=== PATIENT | male | born 1945 | race Caucasian/White ===

== ENCOUNTER → 2017-01-14 | Outpatient (CLI) | payer MEDICARE ==
[~2017-01-14] MED LIST: RAMI10TA
== END ==
LOC: FS 14:02
PROVIDERS: ATTEND Internal Medicine Hematology & Oncology
DX: C85.81 Other specified types of non-Hodgkin lymphoma, lymph nodes of head, face, and neck (principal); I10 Essential (primary) hypertension; E66.9 Obesity, unspecified; Z68.37 Body mass index [BMI] 37.0-37.9, adult; Z79.899 Other long term (current) drug therapy
CPT/HCPCS: 99213

== ENCOUNTER 2017-09-22 21:26 | Outpatient (CLI) | payer MEDICARE | END 2017-09-23 06:50 | disposition home or self-care (01) | LOC: SLEEP 21:26 | PROVIDERS: ATTEND Nurse Practitioner Family | DX: G47.33 Obstructive sleep apnea (adult) (pediatric) (principal) | CPT/HCPCS: 95811 ==

== ENCOUNTER 2018-02-06 20:40 | Outpatient (CLI) | payer MEDICARE | END 2018-02-07 06:00 | disposition home or self-care (01) | LOC: SLEEP 20:40 | PROVIDERS: ATTEND Nurse Practitioner Family | DX: G47.33 Obstructive sleep apnea (adult) (pediatric) (principal); R09.02 Hypoxemia | CPT/HCPCS: 95811 ==

== ENCOUNTER 2018-04-28 19:27 | Outpatient (CLI) | payer MEDICARE | END 2018-04-29 05:51 | disposition home or self-care (01) | LOC: SLEEP 19:27 | PROVIDERS: ATTEND Nurse Practitioner | DX: G47.33 Obstructive sleep apnea (adult) (pediatric) (principal); R09.02 Hypoxemia; R06.83 Snoring | CPT/HCPCS: 95811 ==

== ENCOUNTER → 2019-02-03 | Outpatient (CLI) | payer MEDICARE ==
--- NOTE | 2019-02-03 14:45 | Diagnostic Imaging Report ---
INDICATION: Shortness of breath COMPARISON: 03/02/2009 A calcified granuloma left upper lobe chronic. The heart size upper limits but no vascular congestion, edema pneumonia, effusion or pneumothorax. No acute finding and no change. IMPRESSION: Stable chest. Dictated by: Dictated on workstation # [id number]
--- NOTE | 2019-02-03 14:59 | Diagnostic Imaging Report ---
INDICATION: Low back pain. COMPARISON: None available. TECHNIQUE: Five views of the lumbar spine were obtained. FINDINGS: There is approximately 1 cm anterolisthesis of L4 on L5. Chronic bilateral pars defects are likely present at L4; however, there are also severe degenerative changes of the lumbar facets at L4-L5. Chronic degenerative wedging of the anterior aspect of T12 and L1. Remainder of the lumbar vertebral bodies is normal in height. Multilevel degenerative disc disease is greatest at L4-L5. SI joints are normal in appearance. IMPRESSION: 1. Grade 1-2 anterolisthesis of L4 on L5 secondary to chronic bilateral pars defects. 2. Multilevel hnuivffh-ar-uzilvc degenerative changes of the lumbar spine. Dictated by: Dictated on workstation # [id number]
== END ==
LOC: RAD FS 13:32
PROVIDERS: ATTEND Family Medicine
DX: M43.16 Spondylolisthesis, lumbar region (principal); M47.816 Spondylosis without myelopathy or radiculopathy, lumbar region; R06.02 Shortness of breath
CPT/HCPCS: 71046; 72110

== ENCOUNTER 2020-07-30 09:32 | Inpatient (IN) | payer MEDICARE ==
[~2020-07-30] VITALS: Ht 180 cm; Wt 122.2 kg
[2020-07-30] MEDS ORDERED: ONDANSETRON 4 MG (ZOFRAN) ORAL DISSOLVE TAB PO PRN (11:15)
[2020-07-30] MEDS ORDERED: guaiFENesin/CODEINE (ROBITUSSIN AC) 10ML UDC PO PRN (11:15)
[2020-07-30] MEDS ORDERED: ALPRAZolam 0.25 MG (XANAX) TAB PO PRN (11:15)
[2020-07-30] MEDS ORDERED: BISACODYL 10 MG SUPP (DULCOLAX) PR PRN (11:15)
[2020-07-30] MEDS ORDERED: MELATONIN 3 MG TABLET PO PRN (11:15)
[2020-07-30] MEDS ORDERED: LACTULOSE SYRUP 10GM/15ML (ENULOSE) 30ML UDC PO PRN (11:15)
[2020-07-30] MEDS ORDERED: CALCIUM CARBONATE 500 MG (TUMS) TAB.CHEW PO PRN (11:15)
[2020-07-30] MEDS ORDERED: DOCUSATE SODIUM 100 MG (COLACE) CAP PO PRN (11:15)
[2020-07-30] MEDS ORDERED: LOPERAMIDE 2 MG (IMODIUM) TABLET PO PRN (11:15)
[2020-07-30] MEDS ORDERED: FLEET ENEMA ADULT 1 EA BTL PR PRN (11:15)
[2020-07-30] MEDS ORDERED: diphenhydrAMINE 25 MG TAB (BENADRYL) PO PRN (11:15)
[2020-07-30 12:00] VITALS: BP 149/82
--- NOTE | 2020-07-30 12:00 | NUR ---
ANALIA AGUIAR admitted to room 225-1, with an admitting diagnosis of LUMBAR STENOSIS L4-L5, S/P TRANS LUMBAR INTERBODY FUSION, on 07/30/20 from [facility] via PRIVATE VEHICLE, accompanied by . ANALIA AGUIAR introduced to surroundings, call light, bed controls, phone, TV, temperature control, lights, meal times, smoking policy, visitor policy, side rail policy, bathrooms and showers. Patient Rights given to patient in the handbook.ANALIA AGUIAR verbalizes understanding that [facility] is not responsible for the loss or damage to any personal effects or valuables that are kept in the patients posession during their hospitalization. The following Patient Care Plans were discussed with the PATIENT: Discharge Planning, IMPAIRED MOBILITY AND FALLS. ANALIA AGUIAR verbalizes understanding of Interdisciplinary Patient Education. Patient received Patient Rights Booklet, which includes Privacy Act Statement and Data Collection Information Summary.
[2020-07-30 12:38] VITALS: BP 149/82
[2020-07-30] MEDS: metFORMIN 500 MG (GLUCOPHAGE) TAB PO SCH (17:05)
[2020-07-30 18:00] VITALS: BP 160/80
--- NOTE | 2020-07-30 18:00 | NUR ---
IS MILDLY CONFUSED AND HAS GOTTEN UP TWICE WITHOUT CALLING. BED AND CHAIR ALARMS BOTH BEING UTILIZED.
--- NOTE | 2020-07-30 18:13 | PM&R Post Admission Assessment ---
PM&R HP Date of Visit: Jul 30, 2020 Time of Visit: 14:00 History of Present Illness CC: Back pain and slow recovery from lumbar stenosis with neurogenic claudication surgery Dr White HPI: This is a 74yoWM clinic patient of Dr Jasso who presents to IRF in need of aggressive rehab in order to return home to live independently with his of 56 years. He underwent uncomplicated lumbar stenosis surgery by DR White at [facility]. Pain is controlled with pain meds. BM x 2 this am since before surgery. Patient denies N/V or fever. PLOF was independent without the use of AD. Past Awhnupj-Afaaoq-Jpjzip Hx Past Med/Social Hx: Reviewed Nursing Past Med/Soc Hx, Reviewed and Corrections made Patient Social History Marrital Status: Employed/Student: retired Alcohol Use: Denies Use Recreational Drug Use: No Smoking Status: Never a Smoker Physical Abuse Screen: No Sexual Abuse: No Recent Foreign Travel: No Contact w/other who traveled: No Recent Hopitalizations: Yes (07/30 Lumbar stenosis, TLIF) Recent Infectious Disease Expo: No Immunizations Up To Date Date of Pneumonia Vaccine: Jul 30, 2017 Past Medical History Surgeries: Orthopedic Currently Using CPAP: No (stopped using 2 years ago; has machine at home) Currently Using BIPAP: No Cardiac: Chronic Edema/Swelling, High Cholesterol, Hypertension Reproductive: No Musculoskeletal: Arthritis Endocrine: Diabetes, Non-Insulin dep Are Your Blood Sugars Over 250: No Hearing Impairment: Hard of Hearing Cancer: Leukemia, Lymphoma Did You Recieve Any Treatments: Yes What Type of Treatment Did You: Chemotherapy, Radiation, Surgical Intervention Psychosocial: Depression History of Blood Disorders: No Family History Cardiovascular disease 19 MOTHER Diabetes mellitus 19 MOTHER G8 BROTHER Myocardial infarction 19 FATHER PM&R Allergy/Meds/Data Review Allergies Coded Allergies: diphenhydramine (Verified Allergy, Mild, 07/30/20) patient states "gives him a high" Home Medications Miscellaneous Medications Ramipril (Altace), (Reported) Current Medications Current Medications Reviewed Laboratory Data Laboratory Tests 07/30/20 12:24: Glucometer 114H 07/30/20 17:04: Glucometer 113H Review of Systems Constitutional: see HPI, malaise, weakness Musculoskeletal: back pain Physical Exam Physical Exam Vital Signs Vital Signs - First Documented 07/30/20 12:00 Temp 36.2 Pulse 72 Resp 18 B/P (MAP) 149/82 (104) Pulse Ox 96 O2 Delivery Room Air Capillary Refill : Height, Weight, BMI Height: '" Weight: lbs. oz. kg; 39.75 BMI Method: General Appearance: No Apparent Distress, WD/WN, Chronically ill Eyes: Bilateral Eye Normal Inspection, Bilateral Eye PERRL HEENT: PERRL/EOMI, Normal ENT Inspection, Pharynx Normal Neck: Full Range of Motion, Normal Inspection, Non Tender, Supple, Carotid Bruit Respiratory: Chest Non Tender, Lungs Clear, Normal Breath Sounds, No Accessory Muscle Use, No Respiratory Distress Cardiovascular: Regular Rate, Rhythm, No Edema, No Gallop, No JVD, No Murmur, Normal Peripheral Pulses Gastrointestinal: Normal Bowel Sounds, No Organomegaly, No Pulsatile Mass, Non Tender, Soft Back: Decreased Range of Motion, Muscle Spasm, Vertebral Tenderness Extremity: Normal Capillary Refill, Normal Inspection, Normal Range of Motion, Non Tender, No Calf Tenderness, No Pedal Edema Neurologic/Psychiatric: Alert, Oriented x3, Normal Mood/Affect, Motor Weakness (legs 4/5) Skin: Normal Color, Warm/Dry Lymphatic: No Adenopathy PM&R Medical Assessment & Plan REHAB/MEDICAL ASSESSMENT AND PLAN: REHAB IMPAIRMENT GROUP: Lumbar stenosis with neurogenic claudication ETIOLOGIC DIAGNOSIS: Lumbar stenosis with neurogenic claudication The comorbidities that impact the patients function and/or functional outcome by: increased BMI, fall risk, significant pain in back limiting activity REHAB PLAN: The patient is being admitted to our comprehensive inpatient rehabilitation facility and can tolerate the intensity of service consisting of at least: 180 minutes of therapy a day, 5 out of 7 days a week Rehab treatment will consist of: PT OT will help patient regain function with specific energy conservation techniques with the use of AD The patient/family has a good understanding of our discharge process and will benefit from an interdisciplinary inpatient rehabilitation program. The patient has potential to make improvement and is in need of at least two of the following multidisciplinary therapies including but not limited to physical, occupational, speech, and prosthetics and orthotics. Additionally the patient will need services from respiratory, nutritional services, wound care, psychology, etc. (Customize this to each patient). Given the patients complex condition and risk of further medical complications, rehabilitation services cannot be safely or effectively provided at a lower level of care such as a shelter facility. BARRIERS TO DISCHARGE: Back pain ESTIMATED LOS: 7 days DISPOSITION: Home RELEVANT CHANGES SINCE PREADMISSION SCREENING: I have compared the patients medical and functional status at the time of the preadmission screening and there are: no changes PROGNOSIS: Good REHABILITATION GOALS: 1. PT OT will help patient regain function with specific energy conservation techniques with the use of AD All the above goals were reviewed with the patient and he/she is in agreement. By signing this document, I acknowledge that I have personally performed a full physical examination on this patient within 24 hours of admission to this inpatient rehabilitation facility and have determined the patient to be able to tolerate the above course of treatment at an intensive level for a reasonable period of time. I will be completing a detailed individualized Plan of Care for this patient by day #4 of the patients stay based upon the Preadmission Screen, the Post-Admission Evaluation, and the therapy evaluations. Admission Dx/Comorbidities: (1) Lumbar stenosis with neurogenic claudication ICD Codes: M48.062 - Spinal stenosis, lumbar region with neurogenic claudication (2) Hypertension ICD Codes: I10 - Essential (primary) hypertension (3) Hyperlipemia ICD Codes: E78.5 - Hyperlipidemia, unspecified (4) Edema ICD Codes: R60.9 - Edema, unspecified (5) Diabetes ICD Codes: E11.9 - Type 2 diabetes mellitus without complications Assessment/Plan Assessment and Plan Assess & Plan/Chief Complaint Assessment: Lumbar spine stenosis with nuerogenic claudication s/p surgery HTN HLP DM Edema plan: Pain control Monitor closely IRF protocol HAIM BERNAL DO Jul 30, 2020 18:13
[2020-07-30] MEDS: polyethylene glycoL POWDER 17 GM (MIRALAX) PACK PO SCH (19:21)
[2020-07-30] MEDS: SENNA W/DOCUSATE (SENOKOT S) TABLET PO SCH (19:21)
[2020-07-30] MEDS: BACLOFEN 10 MG (LIORESAL) TAB PO PRN (19:47)
[2020-07-30] MEDS ORDERED: BACITRACIN OINTMENT 28 GM TUBE TOP SCH (21:00)
[2020-07-30] MEDS: ZOLPIDEM 5 MG (AMBIEN) TAB PO PRN (21:10)
[2020-07-30] MEDS: oxyCODONE/APAP 5/325MG (PERCOCET 5) TABLET PO PRN (21:11)
[2020-07-31] MEDS: oxyCODONE/APAP 5/325MG (PERCOCET 5) TABLET PO PRN ×3 (04:52→20:16)
[2020-07-31 05:19] VITALS: BP 160/73
[2020-07-31 06:03] LABS: BASOPHILS # (AUTO) 0.1 10^3/uL (0.0-0.1); BASOPHILS % (AUTO) 1 % (0-10); EOSINOPHILS # (AUTO) 0.2 10^3/uL (0.0-0.3); EOSINOPHILS % (AUTO) 3 % (0-10); HEMATOCRIT 38 % (40-54); HEMOGLOBIN 12.4 g/dL (13.3-17.7); LYMPHOCYTES # (AUTO) 1.1 10^3/uL (1.0-4.0); LYMPHOCYTES % (AUTO) 13 % (12-44); MEAN CORPUSCULAR HEMOGLOBIN 29 pg (25-34); MEAN CORPUSCULAR HGB CONC 33 g/dL (32-36); MEAN CORPUSCULAR VOLUME 89 fL (80-99); MEAN PLATELET VOLUME 10.3 fL (9.0-12.2); MONOCYTES # (AUTO) 0.6 10^3/uL (0.0-1.0); MONOCYTES % (AUTO) 7 % (0-12); NEUTROPHILS % (AUTO) 77 % (42-75); PLATELET COUNT 238 10^3/uL (130-400); WHITE BLOOD COUNT 9.1 10^3/uL (4.3-11.0)
[2020-07-31 06:18] LABS: ALBUMIN 3.1 GM/DL (3.2-4.5); CHLORIDE 101 MMOL/L (98-107); POTASSIUM 3.7 MMOL/L (3.6-5.0); SODIUM 135 MMOL/L (135-145)
[2020-07-31 06:20] LABS: CALCIUM 8.5 MG/DL (8.5-10.1)
[2020-07-31 06:21] LABS: GLUCOSE 130 MG/DL (70-105); TOTAL PROTEIN 6.7 GM/DL (6.4-8.2)
[2020-07-31 06:22] LABS: CARBON DIOXIDE 24 MMOL/L (21-32)
[2020-07-31 06:23] LABS: BILIRUBIN,TOTAL 0.9 MG/DL (0.1-1.0)
[2020-07-31 06:24] LABS: ALKALINE PHOSPHATASE 147 U/L (40-136)
[2020-07-31 06:25] LABS: BUN/CREATININE RATIO 17; CREATININE SERUM 0.76 MG/DL (0.60-1.30); GFR ESTIMATED > 60
[2020-07-31 06:27] LABS: ALANINE AMINOTRANSFERASE 56 U/L (0-55)
[2020-07-31] MEDS: metFORMIN 500 MG (GLUCOPHAGE) TAB PO SCH ×2 (06:33→17:02)
--- NOTE | 2020-07-31 08:00 | NUR ---
CRANKY SPIRITS THIS MORNING. UNHAPPY HAVING TO BE HERE. LOWER EXTREMITY EDEMA NOTED. LEGS TOO LARGE FOR WALDO HOSE AND REFUSES DIONNA WRAPS. CONTINUE TO NEED TO UTILIZE BED AND CHAIR ALARMS BECAUSE GETTING UP WITHOUT CALLING.
--- NOTE | 2020-07-31 09:01 | Physical Therapy Evaluation ---
PT Evaluation-General Medical Diagnosis Admission Date Jul 30, 2020 at 12:00 Medical Diagnosis: lumbar stenosis Onset Date: Jul 30, 2020 Therapy Diagnosis Therapy Diagnosis: impaired mobility, endurance Precautions Precautions/Isolations: Fall Prevention, Standard Precautions, Pressure Ulcer Referral Physician: Myra Osman DO Reason for Referral: Evaluation/Treatment Medical History Additional Medical History Past Medical History Surgeries: Orthopedic Currently Using CPAP: No (stopped using 2 years ago; has machine at home) Currently Using BIPAP: No Cardiac: Chronic Edema/Swelling, High Cholesterol, Hypertension Reproductive: No Musculoskeletal: Arthritis Endocrine: Diabetes, Non-Insulin dep Are Your Blood Sugars Over 250: No Hearing Impairment: Hard of Hearing Cancer: Leukemia, Lymphoma Did You Recieve Any Treatments: Yes What Type of Treatment Did You: Chemotherapy, Radiation, Surgical Intervention Psychosocial: Depression Reviewed History: Yes Social History Home: Single Level Current Living Status: Spouse Entry Into Home: Level Entry Prior Prior Level of Function SCALE: Activities may be completed with or without assistive devices. 1-Svfkvftxzo-wbobwyn completes the activity by him/herself with no assistance from a helper. 5-Set-up or Clean-up Assistance-helper sets up or cleans up; patient completes activity. [place] assists only prior to or following the activity. 4-Supervision or Touching Assistance-helper provides verbal cues and/or touching/steadying and/or contact guard assistance as patient completes activity. Assistance may be provided throughout the activity or intermittently. 3-Partial/Moderate Assistance-helper does LESS THAN HALF the effort. [place] lifts, holds or supports trunk or limbs, but provides less than half the effort. 2-Substantial/Maximal Assistance-helper does MORE THAN HALF the effort. [place] lifts or holds trunk or limbs and provides more than half the effort. 0-Hauxrvbrz-agifsn does ALL the effort. Patient does none of the effort to complete the activity. Or, the assistance of 2 or more helpers is required for the patient to complete the activity. If activity was not attempted, code reason: 7-Patient Refused. 9-Not Applicable-not attempted and the patient did not perform the activity before the current illness, exacerbation or injury. 10-Not Attempted due to Environmental Limitations-(lack of equipment, weather restraints, etc.). 88-Not Attempted due to Medical Conditions or Safety Concerns. Bed Mobility: 6 Transfers (B,C,W/C): 6 Gait: 6 Stairs: 6 Indoor Mobility (Ambulation): Independent Stairs: Independent PT Evaluation-Current Subjective Patient in recliner pre tx, agrees to PT, has 2/10 pain in back. Patient is upset about his care here, listened with a sympathetic ear. Pt/Family Goals to be independent at home Objective Patient Orientation: Person, Place, Situation back brace ROM/Strength ROM Lower Extremities WNL Strength Lower Extremities 5/5 gross BLE Sensory Vision: Functional Hearing: Functional Sensation Right Lower Extremit: Intact Sensation Left Lower Extremity: Impaired Sensation Lower Extremities Patient has mild impairment in light touch sensation in left foot. Transfers Roll Left & Right (QC): 4 Sit to Lying (QC): 4 Lying to Sitting/Side of Bed(Q: 4 Sit to Stand (QC): 4 Chair/Dcb-az-Npohb Xfer(QC): 4 Toilet Transfer (QC): 4 Car Transfer (QC): 4 Patient can perform bed mobility and supine <-> sit with SBA, sit <-> stand and transfers with CGA, car transfer CGA. Occasional cues for hand placement or positioning. Gait Does the Patient Walk?: Yes Mode of Locomotion: Walk Anticipated Mode of Locomotion: Walk Walk 10 feet (QC): 4 Walk 50 ft with 2 Turns(QC): 4 Walk 150 ft (QC): 4 Walking 10ft/uneven surface-QC: 4 Distance: 300', 120' Gait Assistive Device: FWW Comments/Gait Description Patient can ambulate 300' with a rolling walker with SBA (including 50' with at least 2 turns of 90 degrees and 10' over an uneven surface). Gait is slow, has wide CHRISTOFER but is steady. Wheelchair Training Does the Pt Use a Wheelchair?: No Wheel 50 ft with 2 turns (QC): 9 Wheel 150 ft (QC): 9 Stairs #of Steps: 4 1 Step (curb) (QC): 4 4 Steps (QC): 4 12 Steps (QC): 88 Patient can go up and down 4 steps using 2 handrails with CGA, cues for foot placement and safety. Balance Sitting Static: Normal Sitting Dynamic: Normal Standing Static: Good Standing Dynamic: Good Picking up an Object (QC): 88 Treatment Parallel bars exercises x15 (heel raises, mini-squats, hip abd), seated LAQ alternating for 5 min with 2# ankle weights Assessment/Needs Patient has impaired mobility, endurance. His functional mobility is pretty good and will probably be independent in a couple of days. Patient in bed post tx with nurse call, phone, tray, all needs met. Rehab Potential: Fair PT Short Term Goals Short Term Goals Time Frame: Aug 07, 2020 Roll Left & Right: 6 Sit to lyin Sit to stand: 4 Chair/toc-xe-fvmra transfer: 4 Walk 10 feet: 4 Walk 50 feet with two turns: 4 Walk 150 feet: 4 PT Clinical Care Coordinator Goals Snf Goals PT Snf Goals Time Frame: Aug 21, 2020 Roll Left & Right (QC): 6 Sit to Lying (QC): 6 Lying-Sitting on Side/Bed(QC): 6 Sit to Stand (QC): 6 Chair/Gbp-wz-Msxvx Xfer(QC): 6 Toilet Transfer (QC): 6 Car Transfer (QC): 6 Does the Patient Walk: Yes Walk 10 feet (QC): 6 Walk 50ft with 2 Turns (QC): 6 Walk 150 ft (QC): 6 Walking 10ft on Uneven Surface: 6 1 Step (curb) (QC): 6 4 Steps (QC): 6 12 Steps (QC): 6 Picking up an Object (QC): 88 Wheel 50 feet with 2 turns (QC: 9 Wheel 150 feet: 9 PT Plan Problem List Problem List: Activity Tolerance, Functional Strength, Safety, Balance, Gait, Transfer, Bed Mobility, ROM Treatment/Plan Treatment Plan: Continue Plan of Care Treatment Plan: Bed Mobility, Education, Functional Activity [place], Functional Strength, Group Therapy, Gait, Safety, Therapeutic Exercise, Transfers Treatment Duration: Aug 21, 2020 Frequency: At least 5 of 7 days/Wk (IRF) Estimated Hrs Per Day: 1.5 hours per day Patient and/or Family Agrees t: Yes Safety Risks/Education Patient Education: Gait Training, Transfer Techniques, Steps, Correct Positioning, Reviewed Don/Doff Brace, Safety Issues Teaching Recipient: Patient Teaching Methods: Demonstration, Discussion Response to Teaching: Reinforcement Needed Discharge Recommendations Plan Patient will perform bed mobility and transfer training, balance and endurance training, functional strengthening, stair training, gait training, and education, to improve functional mobility and independence at home. Therapy Discharge Recommendati: Home & Family Time/GCodes Time In: 0800 Time Out: 0900 Total Billed Treatment Time: 60 Total Billed Treatment 1 visit EVM 30' FA 30' BALWINDER EDDY PT Jul 31, 2020 09:01
[2020-07-31] MEDS: BACLOFEN 10 MG (LIORESAL) TAB PO PRN ×2 (09:34→17:02)
[2020-07-31] MEDS: SENNA W/DOCUSATE (SENOKOT S) TABLET PO SCH ×2 (09:34→21:51)
[2020-07-31] MEDS: meTOproloL SUCCINATE 50 MG (TOPROL XL) TAB PO SCH (09:34)
[2020-07-31] MEDS: amLODIPine 5 MG (NORVASC) TAB PO SCH (09:34)
[2020-07-31] MEDS: FUROSEMIDE 20 MG (LASIX) TAB PO SCH (09:34)
[2020-07-31] MEDS: lisINopril 20 MG (PRINIVIL) TABLET PO SCH (09:35)
[2020-07-31] MEDS: polyethylene glycoL POWDER 17 GM (MIRALAX) PACK PO SCH ×2 (09:37→20:06)
--- NOTE | 2020-07-31 10:25 | PM&R Progress Note ---
Subjective HPI/CC On Admission Date Seen by Provider: Jul 31, 2020 Time Seen by Provider: 10:30 Subjective/Events-last exam 07/31/20: Pt really irritated and wants to leave Family really wants him to stay Denies any significant new issues Pain is pretty well controlled Just took a shower and feels much better about everything Disappointed that his was not able to visit him in rehab when she stayed with him at [place] Review of Systems Musculoskeletal: back pain Objective Exam Vital Signs Vital Signs Date Time Temp Pulse Resp B/P (MAP) Pulse Ox O2 Delivery O2 Flow Rate FiO2 08/01/20 06:08 37.0 78 20 147/88 (107) 96 Room Air Capillary Refill : Less Than 3 Seconds General Appearance: No Apparent Distress, WD/WN, Chronically ill HEENT: PERRL/EOMI, Normal ENT Inspection, Pharynx Normal Neck: Full Range of Motion, Normal Inspection, Non Tender, Supple, Carotid Bruit Respiratory: Chest Non Tender, Lungs Clear, Normal Breath Sounds, No Accessory Muscle Use, No Respiratory Distress Cardiovascular: Regular Rate, Rhythm, No Edema, No Gallop, No JVD, No Murmur, Normal Peripheral Pulses Gastrointestinal: Normal Bowel Sounds, No Organomegaly, No Pulsatile Mass, Non Tender, Soft Back: Decreased Range of Motion, Muscle Spasm, Vertebral Tenderness Extremity: Normal Capillary Refill, Normal Inspection, Normal Range of Motion, Non Tender, No Calf Tenderness, No Pedal Edema Neurologic/Psychiatric: Alert, Oriented x3, Normal Mood/Affect, Motor Weakness (legs 4/5) Skin: Normal Color, Warm/Dry Lymphatic: No Adenopathy Results/Procedures Lab Patient resulted labs reviewed. FIM Transfers Therapy Code Descriptions/Definitions Functional [place] Measure: 0=Not Assessed/NA 4=Minimal Assistance 1=Total Assistance 5=Supervision or Setup 2=Maximal Assistance 6=Modified [place] 3=Moderate Assistance 7=Complete IndependenceSCALE: Activities may be completed with or without assistive devices. 5-Quisoxsjcd-hamusbt completes the activity by him/herself with no assistance from a helper. 5-Set-up or Clean-up Assistance-helper sets up or cleans up; patient completes activity. [place] assists only prior to or following the activity. 4-Supervision or Touching Assistance-helper provides verbal cues and/or to uching/steadying and/or contact guard assistance as patient completes activity. Assistance may be provided throughout the activity or intermittently. 3-Partial/Moderate Assistance-helper does LESS THAN HALF the effort. [place] lifts, holds or supports trunk or limbs, but provides less than half the effort. 2-Substantial/Maximal Assistance-helper does MORE THAN HALF the effort. [place] lifts or holds trunk or limbs and provides more than half the effort. 9-Kzfahydcd-ueveyc does ALL the effort. Patient does none of the effort to complete the activity. Or, the assistance of 2 or more helpers is required for the patient to complete the activity. If activity was not attempted, code reason: 7-Patient Refused. 9-Not Applicable-not attempted and the patient did not perform the activity before the current illness, exacerbation or injury. 10-Not Attempted due to Environmental Limitations-(lack of equipment, weather restraints, etc.). 88-Not Attempted due to Medical Conditions or Safety Concerns. Roll Left to Right (QC): 4 Sit to Lying (QC): 4 Sit to Stand (QC): 4 Chair/Prp-aj-Frxqm Xfer(QC): 4 Car Transfer (QC): 4 Gait Training Does the Patient Walk?: Yes Walk 10 feet (QC): 4 Walk 50 ft with 2 Turns(QC): 4 Walk 150 ft (QC): 4 Walking 10ft/uneven surface-QC: 4 Gait Assistive Device: FWW Wheelchair Training Does the Pt Use a Wheelchair?: No Wheel 50 ft with 2 turns (QC): 9 Wheel 150 ft (QC): 9 Stair Training #of Steps: 4 1 Step (curb) (QC): 4 4 Steps (QC): 4 12 Steps (QC): 88 Balance Picking up an Object (QC): 88 Assessment/Plan Assessment and Plan Assess & Plan/Chief Complaint Assessment: Lumbar spine stenosis with nuerogenic claudication s/p surgery HTN HLP DM Edema Plan: Pain control Monitor closely IRF protocol 07/31/20: Wants to leave AMA Pain control Labs stable (1) Lumbar stenosis with neurogenic claudication (2) Hypertension (3) Hyperlipemia (4) Edema (5) Diabetes HAIM BERNAL DO Jul 31, 2020 10:25
[2020-07-31] MEDS: BACITRACIN OINTMENT 28 GM TUBE TOP SCH (11:42)
--- NOTE | 2020-07-31 13:07 | NUR ---
CM/SS ADMISSION Patient was admitted to ARU 07/[address] [facility] for Lumbar Stenosis L4-L5. He states he admitted to [facility] 07/24 for his neurosurgery by Dr. Abhishek White MD. Additional comorbidities are, in part, HTN, hyperlipidemia, edema, NIDDM. Patient has history of leukemia and lymphoma with interventions of surgery, chemotherapy, radiation. Patient resides at home with his spouse, Celeste Gerber, and wishes to return there as soon as able. He was independent of all activities without assistive devices prior to surgery. PCP: Nelson Jasso MD [facility] [phone] PHARMACY: [facility] INSURANCE: Medicare, supplement [employer] DME: Has FWW, wheelchair (his mother's), CPAP (stopped using 2 years ago). They are finalizing remodel of a bathroom, walk in shower and with grab bars and possibly a built in seat. BARRIERS TO DISCHARGE PLANNING: Nothing significant noted. Adequate insurance coverage, spouse at home to assist, son and daughter both reside in same town. Level entry to home off of deck or one step down from garage entry. CONTACTS: Celeste Gerber, Spouse [address] [place] [address] Jeremi Gerber, Son [address] [place] [address] Joyce Baker, [place] [address] Patient understands the purpose and process of the weekly patient care conference and that he will first be reviewed August 02. He has verbalized to several staff he wishes to return home as soon as the team is in agreement.
--- NOTE | 2020-07-31 14:00 | NUR ---
MUCH BETTER SPIRITS. FACETIMED WITH GRANDDAUGHTER. MADE UP AD COOKIE IN ROOM BY Durga BRITT PATIENT VOICES UNDERSTANDING TO CALL NURSE TO PUT ON BACK BRACE WHEN WANTS TO GET UP HOWEVER.
--- NOTE | 2020-07-31 14:44 | Occupational Therapy Eval ---
OT Evaluation-General/PLF Medical Diagnosis Admission Date Jul 30, 2020 at 12:00 Medical Diagnosis: lumbar stenosis/L4-L5 trans lumbar interbody fusion Onset Date: Jul 24, 2020 Therapy Diagnosis Therapy Diagnosis: Weakness Precautions Precautions/Isolations: Fall Prevention, Standard Precautions, Pressure Ulcer Weight Bear Status Back brace on when up. Referral Physician: Myra Osman DO Referral Reason: Activity Tolerance, Self Care, Evaluation/Treatment, Strengthening/ROM Medical History Pertinent Medical History: DM Additional Medical History Neurogenic Claudication, lymphoma, leukemia Current History Pt. was experiencing radiating pain in bilateral LE. Reviewed History: Yes Social History Home: Single Level Current Living Status: Spouse Entry Into Home: Level Entry ADL-Prior Level of Function SCALE: Activities may be completed with or without assistive devices. 4-Nboohaufrb-tuojepi completes the activity by him/herself with no assistance from a helper. 5-Set-up or Clean-up Assistance-helper sets up or cleans up; patient completes activity. Browning assists only prior to or following the activity. 4-Supervision or Touching Assistance-helper provides verbal cues and/or touching/steadying and/or contact guard assistance as patient completes activity. Assistance may be provided throughout the activity or intermittently. 3-Partial/Moderate Assistance-helper does LESS THAN HALF the effort. Browning lifts, holds or supports trunk or limbs, but provides less than half the effort. 2-Substantial/Maximal Assistance-helper does MORE THAN HALF the effort. Browning lifts or holds trunk or limbs and provides more than half the effort. 9-Yvcqjkhjg-yckzif does ALL the effort. Patient does none of the effort to complete the activity. Or, the assistance of 2 or more helpers is required for the patient to complete the activity. If activity was not attempted, code reason: 7-Patient Refused. 9-Not Applicable-not attempted and the patient did not perform the activity before the current illness, exacerbation or injury. 10-Not Attempted due to Environmental Limitations-(lack of equipment, weather restraints, etc.). 88-Not Attempted due to Medical Conditions or Safety Concerns. ADL PLOF Comments Pt. verbalizes that he used a walker sometimes, if needed, but mainly was independent with daily tasks, and did not use anything for mobility. Self Care: Independent Functional Cognition: Independent DME/Equipment: Bath Chair, Shower Drive Self: Yes OT Current Status Subjective No pain reported. Appearance Pt. in bed. Agrees to work with OT. Mental Status/Objective Patient Orientation: Person, Place, Time, Situation Current Hand Dominance: Right Upper Extremity ROM WFL ADL-Treatment Eating (QC): 6 Oral Hygiene (QC): 88 (Pt. does not have dentures in.) Shower/Bathe Self (QC): 4 (SBA in shower.) Upper Body Dressing (QC): 4 (SBA to doff shirt. Pt. dons fresh gown.) Lower Body Dressing (QC): 4 (SBA seated on shower chair to thread bilateral LE into shorts. SBA in stance to don over hips.) On/Off Footwear (QC): 3 (Mod assist to don socks. Pt. issued sock aide and able to don with min assist.) Toileting Hygiene (QC): 4 Education OT Patient Education: Correct positioning, Modified ADL techniques, Progress toward Goal/Update tx plan, Purpose of tx/functional activities, Reviewed precautions, Rehab process, Transfer techniques Teaching Recipient: Patient Teaching Methods: Demonstration, Discussion Response to Teaching: Verbalize Understanding, Return Demonstration OT Halfway Goals Halfway Goals Time Frame: Aug 14, 2020 Eating (QC): 6 Oral Hygiene (QC): 6 Toileting Hygiene (QC): 6 Shower/Bathe Self (QC): 6 Upper Body Dressing (QC): 6 Lower Body Dressing (QC): 6 On/Off Footwear (QC): 6 Additional Goals: 1-Demonstrate ADL Tasks, 2-Verbalize Understanding, 3- ImproveStrength/Delma 1=Demonstrate adherence to instructed precautions during ADL tasks. 2=Patient will verbalize/demonstrate understanding of assistive devices/modifications for ADL. 3=Patient will improve strength/tolerance for activity to enable patient to perform ADL's. OT Education/Plan Problem List/Assessment Assessment: Decreased Activ Tolerance, Impaired I ADL's, Impaired Self-Care Skills Discharge Recommendations Plan/Recommendations: Continue POC Therapy Discharge Recommendati: Home & Family Equpiment Recommendations-D/C: Hip Kit Treatment Plan/Plan of Care Treatment,Training & Education: Yes Patient would benefit from OT for education, treatment and training to promote independence in ADL's, mobility, safety and/or upper extremity function for ADL's. Plan of Care: ADL Retraining, Functional Mobility, UE Funct Exercise/Act Treatment Duration: Aug 14, 2020 Frequency: At least 5 of 7 days/Wk (IRF) Estimated Hrs Per Day: 1.5 hours per day Agreement: Yes Rehab Potential: Good Time/GCodes Start Time: 10:00 Stop Time: 11:00 Total Time Billed (hr/min): 60 Billed Treatment Time 1, EVL x 15minutes, ADL [id number] ANTONETTE HOBBS OT Jul 31, 2020 14:44
--- NOTE | 2020-07-31 15:00 | Physical Therapy Daily Note ---
PT Daily Note-Current Subjective Patient in bed pre tx, agrees to PT, has 7/10 low back pain. Appearance Patient in bed post tx, has nurse call, phone, tray, all needs met. Nurse notified to make patient independent in his room as long as he has his brace on, told patient if he is in bed and needs to get up to call nursing to put his brace on and then he can get up. Mental Status Patient Orientation: Person, Place, Situation back brace Transfers SCALE: Activities may be completed with or without assistive devices. 0-Pjrqfvseqv-krxctrw completes the activity by him/herself with no assistance from a helper. 5-Set-up or Clean-up Assistance-helper sets up or cleans up; patient completes activity. Prospect assists only prior to or following the activity. 4-Supervision or Touching Assistance-helper provides verbal cues and/or touching/steadying and/or contact guard assistance as patient completes activity. Assistance may be provided throughout the activity or intermittently. 3-Partial/Moderate Assistance-helper does LESS THAN HALF the effort. Prospect lifts, holds or supports trunk or limbs, but provides less than half the effort. 2-Substantial/Maximal Assistance-helper does MORE THAN HALF the effort. Prospect lifts or holds trunk or limbs and provides more than half the effort. 2-Gdrxsobjj-uuhgvf does ALL the effort. Patient does none of the effort to complete the activity. Or, the assistance of 2 or more helpers is required for the patient to complete the activity. If activity was not attempted, code reason: 7-Patient Refused. 9-Not Applicable-not attempted and the patient did not perform the activity before the current illness, exacerbation or injury. 10-Not Attempted due to Environmental Limitations-(lack of equipment, weather restraints, etc.). 88-Not Attempted due to Medical Conditions or Safety Concerns. Roll Left & Right (QC): 6 Sit to Lying (QC): 6 Lying to Sitting/Side of Bed(Q: 6 Sit to Stand (QC): 6 Chair/Bdw-bi-Qiqlr Xfer(QC): 6 Toilet Transfer (QC): 6 practiced going into bathroom and getting onto toilet and back up, no issues or balance problems Gait Training Distance: 120', 400' Walk 10 feet (QC): 6 Walk 50 ft with 2 Turns(QC): 6 Walk 150 ft (QC): 6 Gait Assistive Device: FWW slumped posture but no balance issues Exercises NuStep Minutes: 10 NuStep Workload: 4 Treatments transfers, ambulation, LE strengthening Assessment Current Status: Fair Progress patient now independent in his room, no alarm on bed, can go to restroom by himself but told to call nursing if he needs to PT Short Term Goals Short Term Goals Time Frame: Aug 07, 2020 Roll Left & Right: 6 Sit to lyin Sit to stand: 4 Chair/nnr-ae-mrawu transfer: 4 Walk 10 feet: 4 Walk 50 feet with two turns: 4 Walk 150 feet: 4 PT Mcfp Goals Land Planner Goals PT Mcfp Goals Time Frame: Aug 21, 2020 Roll Left & Right (QC): 6 Sit to Lying (QC): 6 Lying-Sitting on Side/Bed(QC): 6 Sit to Stand (QC): 6 Chair/Lxg-vk-Nxujq Xfer(QC): 6 Toilet Transfer (QC): 6 Car Transfer (QC): 6 Does the Patient Walk: Yes Walk 10 feet (QC): 6 Walk 50ft with 2 Turns (QC): 6 Walk 150 ft (QC): 6 Walking 10ft on Uneven Surface: 6 1 Step (curb) (QC): 6 4 Steps (QC): 6 12 Steps (QC): 6 Picking up an Object (QC): 88 Wheel 50 feet with 2 turns (QC: 9 Wheel 150 feet: 9 PT Plan Problem List Problem List: Activity Tolerance, Functional Strength, Safety, Balance, Gait, Transfer Treatment/Plan Treatment Plan: Continue Plan of Care Treatment Plan: Bed Mobility, Education, Functional Activity Delma, Functional Strength, Group Therapy, Gait, Safety, Therapeutic Exercise, Transfers Treatment Duration: Aug 21, 2020 Frequency: At least 5 of 7 days/Wk (IRF) Estimated Hrs Per Day: 1.5 hours per day Patient and/or Family Agrees t: Yes Safety Risks/Education Patient Education: Gait Training, Transfer Techniques, Correct Positioning, Reviewed Don/Doff Brace, Safety Issues Teaching Recipient: Patient Teaching Methods: Demonstration, Discussion Response to Teaching: Reinforcement Needed Time/GCodes Time In: 1430 Time Out: 1500 Total Billed Treatment Time: 30 Total Billed Treatment 1 visit EX 10' FA 20' BALWINDER EDDY PT Jul 31, 2020 15:00
--- NOTE | 2020-07-31 15:18 | Occupational Ther Daily Note ---
OT Current Status-Daily Note Subjective No pain reported. Mental Status/Objective Patient Orientation: Person, Place, Time, Situation ADL-Treatment Therapy Code Descriptions/Definitions Functional Luna Measure: 0=Not Assessed/NA 4=Minimal Assistance 1=Total Assistance 5=Supervision or Setup 2=Maximal Assistance 6=Modified Luna 3=Moderate Assistance 7=Complete IndependenceSCALE: Activities may be completed with or without assistive devices. 5-Zclwnjhwbk-doxarcp completes the activity by him/herself with no assistance from a helper. 5-Set-up or Clean-up Assistance-helper sets up or cleans up; patient completes activity. Bailey assists only prior to or following the activity. 4-Supervision or Touching Assistance-helper provides verbal cues and/or touching/steadying and/or contact guard assistance as patient completes activity. Assistance may be provided throughout the activity or intermittently. 3-Partial/Moderate Assistance-helper does LESS THAN HALF the effort. Bailey lifts, holds or supports trunk or limbs, but provides less than half the effort. 2-Substantial/Maximal Assistance-helper does MORE THAN HALF the effort. Bailey lifts or holds trunk or limbs and provides more than half the effort. 0-Bgononwse-bqkbib does ALL the effort. Patient does none of the effort to complete the activity. Or, the assistance of 2 or more helpers is required for the patient to complete the activity. If activity was not attempted, code reason: 7-Patient Refused. 9-Not Applicable-not attempted and the patient did not perform the activity before the current illness, exacerbation or injury. 10-Not Attempted due to Environmental Limitations-(lack of equipment, weather restraints, etc.). 88-Not Attempted due to Medical Conditions or Safety Concerns. Other Treatment Pt. agrees to work with OT. Pt. transfers supine-sit with SBA, and practices donning back brace. Requires min assist. Pt. ambulates with walker, approximately 300 feet. Rests, and then ambulates to shower room. Pt. shown walk in bathtub, as he mentioned getting one at home. Pt. ambulates again, approximately 200 feet, and then transfers to bed with SBA. All needs met. Education OT Patient Education: Correct positioning, Modified ADL techniques, Progress toward Goal/Update tx plan, Purpose of tx/functional activities, Reviewed precautions, Rehab process, Transfer techniques Teaching Recipient: Patient Teaching Methods: Demonstration, Discussion Response to Teaching: Verbalize Understanding, Return Demonstration OT Merry Go Round Attendant Goals Mcfp Goals Time Frame: Aug 14, 2020 Eating (QC): 6 Oral Hygiene (QC): 6 Toileting Hygiene (QC): 6 Shower/Bathe Self (QC): 6 Upper Body Dressing (QC): 6 Lower Body Dressing (QC): 6 On/Off Footwear (QC): 6 Additional Goals: 1-Demonstrate ADL Tasks, 2-Verbalize Understanding, 3- ImproveStrength/Delma 1=Demonstrate adherence to instructed precautions during ADL tasks. 2=Patient will verbalize/demonstrate understanding of assistive devices/modifications for ADL. 3=Patient will improve strength/tolerance for activity to enable patient to perform ADL's. OT Education/Plan Problem List/Assessment Assessment: Decreased Activ Tolerance Discharge Recommendations Plan/Recommendations: Continue POC Therapy Discharge Recommendati: Home & Family Equpiment Recommendations-D/C: Hip Kit Treatment Plan/Plan of Care Treatment,Training & Education: Yes Patient would benefit from OT for education, treatment and training to promote independence in ADL's, mobility, safety and/or upper extremity function for ADL's. Plan of Care: ADL Retraining, Functional Mobility, UE Funct Exercise/Act Treatment Duration: Aug 14, 2020 Frequency: At least 5 of 7 days/Wk (IRF) Estimated Hrs Per Day: 1.5 hours per day Agreement: Yes Rehab Potential: Good Time/GCodes Start Time: 13:00 Stop Time: 13:30 Total Time Billed (hr/min): 30 Billed Treatment Time 1, FA x 2 ANTONETTE HOBBS OT Jul 31, 2020 15:18
--- NOTE | 2020-07-31 15:32 | ST Cognitive Linguistic Eval ---
Speech Evaluation-General Medical Diagnosis lumbar stenosis/L4-L5 trans lumbar interbody fusion Onset Date: Jul 24, 2020 Therapy Diagnosis Therapy Diagnosis: Cognitive-communication Referral Referring Physician: Dr. Osman Medical History Pertinent Medical History: DM Reviewed History: Yes Social History Current Living Status: Spouse Speech PLF-Current Status Prior Level of Function Patient lives at home where he was independent prior to surgery. Subjective Patient was pleasant and cooperative with the cognitive assessment. Language Eval: Auditory Comprehends Simple Yes/No Ques: Functional Indent/Objects Multiple Cook: Functional Ident/Pics in Multiple Cook: Functional Follows 1-Step Commands: Functional Follows Complex Directions: Functional Follows General Conversations: Functional Language Eval: Verbal Language Completes Spontaneous Greeting: Functional Produces Auto, Serial Info: Functional Imitates Simple Words/Phrases: Functional Word Finding: Functional Requests Basic Needs: Functional States Basic Personal Info: Functional Expresses Complex Ideas: Functional Objective Cognitive Domain Attention: WNL Memory: WNL Problem Solving: Functional Executive Functions: WNL Visuospatial Skills: WNL Composite Severity Rating: WNL Clock Drawing Severity Rating: WNL Objective Formal/Standardized Tests [facility] Mental Status ([facility]) Results 28/30, within normal range of function Oral Motor/Speech Production Within Normal Limits Impression Patient is a pleasant 74 y/o male who was admitted to the ARU s/p spinal surgery. Patient was administered the UMS at bedside with the score of 28/30 obtained. The patient's score is within the normal range of function. The patient does not require further ST services at this time. Speech Patient Assess Expression of Ideas/Wants: Expression (4) Understanding Verbal Content: Understands (4) Brief Interview-Mental Status: Yes Repetition of Three Words: Three (3) Temporal Orientation: Year: Correct (3) Temporal Orientation: Month: Accurate within 5 days(2) Temporal Orientation: Day: Correct (1) Recall : Wear to say "Sock": Yes, no cue required (2) Recall : Color: Yes, after cueing (1) Recall : Bed: Yes, no cue required (2) Memory/Recall Ability: Current season, Location of own room, That he or she is in a hsp/hsp unit Speech-Plan Patient/Family Goals Patient/Family Goals: Patient plans on returning home upon discharge. Treatment Plan Speech Therapy Treatment Plan: Discontinue ST Treatment Duration: Jul 31, 2020 Frequency: 1 time per week Estimated Hrs Per Day: .25 hour per day Rehab Potential: Good Barriers to Learning: None identified Pt/Family Agrees to Plan: Yes Safety Risks/Education Teaching Recipient: Patient Teaching Methods: Discussion Response to Teaching: Verbalize Understanding Education Topics Provided: Safety within his room, utilizing call light as needed Time Speech Therapy Time In: 15:15 Speech Therapy Time Out: 15:30 Total Billed Time: 15 Billed Treatment Time 1, BEVERLYNDCOMP MONROE Hernandez Jul 31, 2020 15:32
--- NOTE | 2020-07-31 15:42 | NUR ---
RD ASSESSMENT PMHx: hypercholesterolemia; HTN; DM; CA(leukemia) PT INTERACTION: Pt was awake and pleasant during nutrition assessment. Pt states current appetite is good. Note avg PO intake 81% x1d, per chart review. Pt states following a regular diet at home, and has no issues with chewing/swallowing food. Pt states no recent issues with nausea, vomiting, constipation, or diarrhea. Note last BM was 07/31, and pt currently on bowel regimen of senna BID, and miralax BID, per chart review. Pt states recent wt loss, but unsure of amount/timeframe. Note unable to determine recent wt hx, per chart review. Pt states current DM management is "good. I keep it around 127 usually." Note unable to determine recent HbA1c, per chart review. ABNORMAL NUTRITION-RELATED LAB VALUES LOW: alb 3.1; HIGH: glu 130; AST 55; ALT 56; alkphos 147 Est. kcal needs: 4476-8016 kcal | 15-18 kcal/kg Est. Pro needs: 103-129 g Pro | 0.8-1.0 g Pro/kg PES STATEMENT: Given current appetite and PO intake, no nutrition diagnosis at this time (NO-1.1). INTERVENTION: Continue with current diet order of CHO 60g/m 3snack diet. Offered diet education on DM management, but pt declined at this time. May attempt to offer again prior to discharge. Will continue to follow and reassess as pt needs, intake, and status change. Beata HELMS, MS RD LD [phone] cell
--- NOTE | 2020-07-31 16:14 | NUR ---
Pastoral care visit w/pt, pt shared much of his life story and his recent health journey, pt spoke of his crankiness upon being admitted and his first night here. PT shared today has went well and is appreciative of all the care, however he feels he would do well going home and rehabbing from there.
[2020-07-31 18:11] VITALS: BP 136/79
[2020-07-31] MEDS: ZOLPIDEM 5 MG (AMBIEN) TAB PO PRN (20:16)
[2020-08-01] MEDS: oxyCODONE/APAP 5/325MG (PERCOCET 5) TABLET PO PRN ×4 (03:35→21:01)
[2020-08-01 06:08] VITALS: BP 147/88
[2020-08-01] MEDS: metFORMIN 500 MG (GLUCOPHAGE) TAB PO SCH ×2 (06:17→17:13)
[2020-08-01] MEDS: lisINopril 20 MG (PRINIVIL) TABLET PO SCH (08:05)
[2020-08-01] MEDS: amLODIPine 5 MG (NORVASC) TAB PO SCH (08:05)
[2020-08-01] MEDS: SENNA W/DOCUSATE (SENOKOT S) TABLET PO SCH ×2 (08:05→21:01)
[2020-08-01] MEDS: FUROSEMIDE 20 MG (LASIX) TAB PO SCH (08:05)
[2020-08-01] MEDS: BACLOFEN 10 MG (LIORESAL) TAB PO PRN ×2 (08:05→17:13)
[2020-08-01] MEDS: meTOproloL SUCCINATE 50 MG (TOPROL XL) TAB PO SCH (08:05)
[2020-08-01] MEDS: polyethylene glycoL POWDER 17 GM (MIRALAX) PACK PO SCH ×2 (08:07→19:44)
--- NOTE | 2020-08-01 10:14 | Individualized Plan of Care ---
Individualized Plan of Care Rehab Nursing IPOC Order Admission Date Jul 30, 2020 at 12:00 Current Orders Orders Admission Order(Inpt,Obs,Sdc) (07/30/20 11:03) Vital Signs: Per Unit Policy ( 08,16,00 (07/30/20 11:03) Shane Hammonds , (07/30/20 11:03) Sequential Compression Device Q4H (07/30/20 11:03) Sap Specialist-Inpt Rehab Con (07/30/20 11:03) Rehab Nursing Orders-Ipoc (07/30/20 11:03) Physical Therapy Rehab Orders (07/30/20 11:03) Occupational Therapy Rehab Ord (07/30/20 11:03) Speech Therapy Rehab Orders (07/30/20 11:03) Cbc With Automated Diff (07/31/20 06:00) Comprehensive Metabolic Panel (07/31/20 06:00) Intake & Output 06,14,22 (07/30/20 11:03) Precautions (Aru) (07/30/20 11:03) Weekly Weight WEEK (07/30/20 11:03) Rehab-Intensity Of Therapy (07/30/20 11:03) Initiate Admission Nursing Pro .admission (07/30/20 11:03) Alprazolam Tablet (Xanax Tablet) (07/30/20 11:15) Calcium Carbonate Chew Tablet (Antacid C (07/30/20 11:15) Diphenhydramine Tablet (Benadryl Tablet) (07/30/20 11:15) Docusate Sodium Capsule (Colace Capsule) (07/30/20 11:15) Bisacodyl Suppository (Dulcolax Supposit (07/30/20 11:15) Lactulose Oral Solution (Enulose Oral So (07/30/20 11:15) Na Phos/Na Biphos Enema (Fleet Enema Ivan (07/30/20 11:15) Guaifenesin/Codeine Syrup (Robitussin Ac (07/30/20 11:15) Loperamide Tablet (Imodium Tablet) (07/30/20 11:15) Melatonin Tablet (Melatonin Tablet) (07/30/20 11:15) Polyethylene Glycol Powder Pkt (Miralax (07/30/20 21:00) Ondansetron Oral Dissolve Tab (Zofran (07/30/20 11:15) Senna S Tablet (Senokot S Tablet) (07/30/20 21:00) Initiate Admission Nursing Pro .admission (07/30/20 11:03) Code/Resuscitation (07/30/20 11:03) Oxycodone/Apap 5/325mg Tablet (Percocet (07/30/20 11:15) Amlodipine Tablet (Norvasc Tablet) (07/31/20 09:00) Furosemide Tablet (Lasix Tablet) (07/31/20 09:00) Lisinopril Tablet (Zestril Tablet) (07/31/20 09:00) Metformin Tablet (Glucophage Tablet) (07/30/20 17:00) Metoprolol Succinate (Xl) Tab (Toprol Xl (07/31/20 09:00) Zolpidem Tablet (Ambien Tablet) (07/30/20 11:15) Baclofen Tablet (Lioresal Tablet) (07/30/20 11:15) Admission Arrival Bed Request (07/30/20 12:01) Accucheck Achs ACHS (07/30/20 12:04) Cho 60g/M 3snack (16-2000 Beto) (07/30/20 Lunch) Ambulate ,, (07/30/20 16:09) Sequential Compression Device Q4H (07/30/20 16:09) Dvt/Vte Risk - Notifiy Physici Q4H (07/30/20 16:09) Vte Contraindication (07/30/20 17:06) Bacitracin Ointment (Bacitracin Ointment (07/30/20 21:00) Dressing Order (Intervention) Q48H (07/31/20 09:00) Bacitracin Ointment (Bacitracin Ointment (07/31/20 09:00) Patient Visit (07/31/20 ) Speech Sound Lang Comp (07/31/20 ) Patient Visit (07/31/20 ) Pt Eval Moderate Complexity (07/31/20 ) Functional Activities, Ea 15 (07/31/20 ) Exercise Therap, Ea 15 Min (07/31/20 ) Patient Visit (08/01/20 ) Gait Training, Ea 15 Min (08/01/20 ) Exercise Therap, Ea 15 Min (08/01/20 ) Rehab Nursing Orders: Ongoing Assess. of Cognitive Status, Ongoing Assess. of Function Status, Bladder Management, Bladder Scan, Bladder Training, Bowel Management, Bowel Training, Disease Management & Educaiton, DVT Prophylaxis, Fall Prevention, Fluid/Electrolyte/Nutrition Mgmt, Infection Prevention, Medication Management & Education, Management of Risks & Complications, Management of Skin Intergrity, Nutrition Management, Pain Management, Patient/Family Support, Safety Management, Wound Management Intensity of Therapy to be met Patient to be seen: Min.3h per day/5 of 7d PT IPOC Problem List: Activity Tolerance, Functional Strength, Safety, Balance, Gait, Transfer Treatment Plan: Continue Plan of Care Bed Mobility, Education, Functional Activity Delma, Functional Strength, Group Therapy, Gait, Safety, Therapeutic Exercise, Transfers Treatment Duration: Aug 21, 2020 Frequency: At least 5 of 7 days/Wk (IRF) Estimated Hrs Per Day: 1.5 hours per day OT IPOC Problems: Decreased Activ Tolerance OT Treatment, Training and Edu: Yes Plan of Care: ADL Retraining, Functional Mobility, UE Funct Exercise/Act Treatment Duration: Aug 14, 2020 Frequency: At least 5 of 7 days/Wk (IRF) Estimated Hrs Per Day: 1.[address] IPOC Speech Therapy Treatment Plan: Discontinue ST Treatment Duration: Jul 31, 2020 Frequency: 1 time per week Estimated Hrs Per Day: .25 hour per day Sap Specialist/Case Mgmt Sap Specialist/Case Managemen: Discharge Planning Dietitian/Burn Crew Member Dietitian/Burn Crew Member to monitor nutritional status and make changes and/or recommendations as needed and work with speech pathology on dietary upgrades as the occur. Physician IPOC Medical Issues being managed closely and that require the 24 hour availability of a physician: Recent major spine surgery will need close monitoring for slow recovery and prevent falls and manage pain and wound care. Medical Issues: Bowel/Bladder Function, DVT Prophylaxis, Falls Precautions, Fluid/Electrolyte/Nutrition Balance, Infection Protection, Pain Management, Wound Care Brief Synthesis of Preadmission Screen, Post-Admission Evaluation, and Therapy Evaluations: PT OT will focus on regaining function and develop fall prevention techniques in order to regain function in order to return home Medical Prognosis: Good Anticipated Length of Stay: 6 days HAIM BERNAL DO Aug 01, 2020 10:14
--- NOTE | 2020-08-01 10:14 | PM&R Progress Note ---
Subjective HPI/CC On Admission Date Seen by Provider: Aug 01, 2020 Time Seen by Provider: 10:30 Subjective/Events-last exam 08/01/20: Pt wants to go home in two days Walking around pretty well Pain is very well controlled Bowels are moving 07/31/20: Pt really irritated and wants to leave Family really wants him to stay Denies any significant new issues Pain is pretty well controlled Just took a shower and feels much better about everything Disappointed that his was not able to visit him in rehab when she stayed with him at [facility] Review of Systems Musculoskeletal: back pain Objective Exam Vital Signs Vital Signs Date Time Temp Pulse Resp B/P (MAP) Pulse Ox O2 Delivery O2 Flow Rate FiO2 08/02/20 05:56 36.9 73 18 136/75 (95) 95 Room Air Capillary Refill : Less Than 3 Seconds General Appearance: No Apparent Distress, WD/WN, Chronically ill HEENT: PERRL/EOMI, Normal ENT Inspection, Pharynx Normal Neck: Full Range of Motion, Normal Inspection, Non Tender, Supple, Carotid Bruit Respiratory: Chest Non Tender, Lungs Clear, Normal Breath Sounds, No Accessory Muscle Use, No Respiratory Distress Cardiovascular: Regular Rate, Rhythm, No Edema, No Gallop, No JVD, No Murmur, Normal Peripheral Pulses Gastrointestinal: Normal Bowel Sounds, No Organomegaly, No Pulsatile Mass, Non Tender, Soft Back: Decreased Range of Motion, Muscle Spasm, Vertebral Tenderness Extremity: Normal Capillary Refill, Normal Inspection, Normal Range of Motion, Non Tender, No Calf Tenderness, No Pedal Edema Neurologic/Psychiatric: Alert, Oriented x3, Normal Mood/Affect, Motor Weakness (legs 4/5) Skin: Normal Color, Warm/Dry Lymphatic: No Adenopathy Results/Procedures Lab Patient resulted labs reviewed. FIM Transfers Therapy Code Descriptions/Definitions Functional [place] Measure: 0=Not Assessed/NA 4=Minimal Assistance 1=Total Assistance 5=Supervision or Setup 2=Maximal Assistance 6=Modified Mot[place] 3=Moderate Assistance 7=Complete IndependenceSCALE: Activities may be completed with or without assistive devices. 4-Jflhbuxfef-omqckum completes the activity by him/herself with no assistance from a helper. 5-Set-up or Clean-up Assistance-helper sets up or cleans up; patient completes activity. [place] assists only prior to or following the activity. 4-Supervision or Touching Assistance-helper provides verbal cues and/or touching/steadying and/or contact guard assistance as patient completes activity. Assistance may be provided throughout the activity or intermittently. 3-Partial/Moderate Assistance-helper does LESS THAN HALF the effort. Wel[place] lifts, holds or supports trunk or limbs, but provides less than half the effort. 2-Substantial/Maximal Assistance-helper does MORE THAN HALF the effort. [place] lifts or holds trunk or limbs and provides more than half the effort. 8-Cqlfjoqau-jktzhq does ALL the effort. Patient does none of the effort to complete the activity. Or, the assistance of 2 or more helpers is required for the patient to complete the activity. If activity was not attempted, code reason: 7-Patient Refused. 9-Not Applicable-not attempted and the patient did not perform the activity before the current illness, exacerbation or injury. 10-Not Attempted due to Environmental Limitations-(lack of equipment, weather restraints, etc.). 88-Not Attempted due to Medical Conditions or Safety Concerns. Roll Left to Right (QC): 6 Sit to Lying (QC): 6 Sit to Stand (QC): 6 Chair/Oqz-er-Qqnoi Xfer(QC): 6 Car Transfer (QC): 4 Gait Training Does the Patient Walk?: Yes Distance: 120', 400' Walk 10 feet (QC): 6 Walk 50 ft with 2 Turns(QC): 6 Walk 150 ft (QC): 6 Walking 10ft/uneven surface-QC: 4 Gait Assistive Device: FWW Wheelchair Training Does the Pt Use a Wheelchair?: No Wheel 50 ft with 2 turns (QC): 9 Wheel 150 ft (QC): 9 Stair Training #of Steps: 4 1 Step (curb) (QC): 4 4 Steps (QC): 4 12 Steps (QC): 88 Balance Picking up an Object (QC): 88 ADL-Treatment Eating (QC): 6 Oral Hygiene (QC): 88 (Pt. does not have dentures in.) Shower/Bathe Self (QC): 4 (SBA in shower.) Upper Body Dressing (QC): 4 (SBA to doff shirt. Pt. dons fresh gown.) Lower Body Dressing (QC): 4 (SBA seated on shower chair to thread bilateral LE into shorts. SBA in stance to don over hips.) On/Off Footwear (QC): 3 (Mod assist to don socks. Pt. 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
--- NOTE | 2020-08-01 12:39 | Physical Therapy Daily Note ---
PT Daily Note-Current Subjective Pt. in gym with OT, agrees to PT. He has no c/o pain. Mental Status Patient Orientation: Person, Place, Time, Situation Transfers SCALE: Activities may be completed with or without assistive devices. 9-Ryhipgssfc-gzdoaeb completes the activity by him/herself with no assistance from a helper. 5-Set-up or Clean-up Assistance-helper sets up or cleans up; patient completes activity. [place] assists only prior to or following the activity. 4-Supervision or Touching Assistance-helper provides verbal cues and/or touching/steadying and/or contact guard assistance as patient completes activity. Assistance may be provided throughout the activity or intermittently. 3-Partial/Moderate Assistance-helper does LESS THAN HALF the effort. [place] lifts, holds or supports trunk or limbs, but provides less than half the effort. 2-Substantial/Maximal Assistance-helper does MORE THAN HALF the effort. [place] lifts or holds trunk or limbs and provides more than half the effort. 2-Spusjjgfp-fhaezl does ALL the effort. Patient does none of the effort to complete the activity. Or, the assistance of 2 or more helpers is required for the patient to complete the activity. If activity was not attempted, code reason: 7-Patient Refused. 9-Not Applicable-not attempted and the patient did not perform the activity before the current illness, exacerbation or injury. 10-Not Attempted due to Environmental Limitations-(lack of equipment, weather restraints, etc.). 88-Not Attempted due to Medical Conditions or Safety Concerns. Sit to Stand (QC): 6 Weight Bearing Right Lower Extremity: Right Full Weight Bearing Left Lower Extremity: Left Full Weight Bearing Gait Training Does the Patient Walk?: Yes Distance: 400 ft, 2 x 250 ft Walk 10 feet (QC): 4 Walk 150 ft (QC): 4 Gait Persons Needed: 1 Gait Assistive Device: FWW cues needed occasionally to stand upright and reduce lean on walker Exercises NuStep Minutes: 15 NuStep Workload: 5 Treatments gait training, nustep Assessment Current Status: Good Progress Pt. is steady throughout gait and required seated rest between gait distances. Pt. had gradual increase in lean on walker but could correct temporarily with cuing. Pt. was fatigued post session but had no c/o pain. PT Short Term Goals Short Term Goals Time Frame: Aug 07, 2020 Roll Left & Right: 6 Sit to lyin Sit to stand: 4 Chair/iix-be-yvwtt transfer: 4 Walk 10 feet: 4 Walk 50 feet with two turns: 4 Walk 150 feet: 4 PT Diet Kitchen Cook Goals Longterm Goals PT Diet Kitchen Cook Goals Time Frame: Aug 21, 2020 Roll Left & Right (QC): 6 Sit to Lying (QC): 6 Lying-Sitting on Side/Bed(QC): 6 Sit to Stand (QC): 6 Chair/Ssw-zd-Yoypu Xfer(QC): 6 Toilet Transfer (QC): 6 Car Transfer (QC): 6 Does the Patient Walk: Yes Walk 10 feet (QC): 6 Walk 50ft with 2 Turns (QC): 6 Walk 150 ft (QC): 6 Walking 10ft on Uneven Surface: 6 1 Step (curb) (QC): 6 4 Steps (QC): 6 12 Steps (QC): 6 Picking up an Object (QC): 88 Wheel 50 feet with 2 turns (QC: 9 Wheel 150 feet: 9 PT Plan Treatment/Plan Treatment Plan: Continue Plan of Care Treatment Plan: Bed Mobility, Education, Functional Activity Delma, Functional Strength, Group Therapy, Gait, Safety, Therapeutic Exercise, Transfers Treatment Duration: Aug 21, 2020 Frequency: At least 5 of 7 days/Wk (IRF) Estimated Hrs Per Day: 1.5 hours per day Patient and/or Family Agrees t: Yes Time/GCodes Time In: 930 Time Out: 1140 Total Billed Treatment Time: 60 Total Billed Treatment 1, GT 15', Ex 15' ([id number]) 1, GT 30' ([id number]) MANN BROOKE PT Aug 01, 2020 12:39
--- NOTE | 2020-08-01 12:54 | NUR ---
CM/SS DISCHARGE PLANNING Patient has requested to discharge home and this was discussed by therapy team and with physician. The team agreed for discharge August 03, home with spouse and family. PT staff changed patient status to up ad priscilla with exception that he must wear his brace at all times when not in bed. Attempt to notify spouse, Celeste Gerber, no answer at home, no answer on cell and messages full. Patient will be speaking with her later today and will inform her. Updated therapy staff and communication board.
--- NOTE | 2020-08-01 14:25 | Physical Therapy Daily Note ---
PT Daily Note-Current Subjective Pt. in chair and agrees to therapy. He has no c/o pain. Mental Status Patient Orientation: Person, Place, Time, Situation Transfers SCALE: Activities may be completed with or without assistive devices. 3-Vgozvbbnyx-iigsfzr completes the activity by him/herself with no assistance from a helper. 5-Set-up or Clean-up Assistance-helper sets up or cleans up; patient completes activity. [place] assists only prior to or following the activity. 4-Supervision or Touching Assistance-helper provides verbal cues and/or touching/steadying and/or contact guard assistance as patient completes activity. Assistance may be provided throughout the activity or intermittently. 3-Partial/Moderate Assistance-helper does LESS THAN HALF the effort. [place]itus lifts, holds or supports trunk or limbs, but provides less than half the effort. 2-Substantial/Maximal Assistance-helper does MORE THAN HALF the effort. [place] lifts or holds trunk or limbs and provides more than half the effort. 4-Wsfzpnzzo-dclsxm does ALL the effort. Patient does none of the effort to complete the activity. Or, the assistance of 2 or more helpers is required for the patient to complete the activity. If activity was not attempted, code reason: 7-Patient Refused. 9-Not Applicable-not attempted and the patient did not perform the activity before the current illness, exacerbation or injury. 10-Not Attempted due to Environmental Limitations-(lack of equipment, weather restraints, etc.). 88-Not Attempted due to Medical Conditions or Safety Concerns. Sit to Lying (QC): 6 Sit to Stand (QC): 6 Weight Bearing Right Lower Extremity: Right Full Weight Bearing Left Lower Extremity: Left Full Weight Bearing Gait Training Does the Patient Walk?: Yes Distance: 500 ft Walk 150 ft (QC): 4 Gait Persons Needed: 1 Gait Assistive Device: FWW needs cues to stay close to walker Exercises Seated Therapy Exercises: Ankle pumps, Long arc quads, Hip flexion Seated Reps: 20 Treatments gait and LE exercises Assessment Current Status: Good Progress Pt. does well with gait and transfers. He is (I) with donning/doffing lumbar brace prior to and post ambulation. Pt. in bed post session with call light and all needs met. PT Short Term Goals Short Term Goals Time Frame: Aug 07, 2020 Roll Left & Right: 6 Sit to lyin Sit to stand: 4 Chair/axm-ac-kidjx transfer: 4 Walk 10 feet: 4 Walk 50 feet with two turns: 4 Walk 150 feet: 4 PT Correction Goals Chain Puller Goals PT Correction Goals Time Frame: Aug 21, 2020 Roll Left & Right (QC): 6 Sit to Lying (QC): 6 Lying-Sitting on Side/Bed(QC): 6 Sit to Stand (QC): 6 Chair/Afr-an-Wjsuh Xfer(QC): 6 Toilet Transfer (QC): 6 Car Transfer (QC): 6 Does the Patient Walk: Yes Walk 10 feet (QC): 6 Walk 50ft with 2 Turns (QC): 6 Walk 150 ft (QC): 6 Walking 10ft on Uneven Surface: 6 1 Step (curb) (QC): 6 4 Steps (QC): 6 12 Steps (QC): 6 Picking up an Object (QC): 88 Wheel 50 feet with 2 turns (QC: 9 Wheel 150 feet: 9 PT Plan Treatment/Plan Treatment Plan: Continue Plan of Care Treatment Plan: Bed Mobility, Education, Functional Activity Delma, Functional Strength, Group Therapy, Gait, Safety, Therapeutic Exercise, Transfers Treatment Duration: Aug 21, 2020 Frequency: At least 5 of 7 days/Wk (IRF) Estimated Hrs Per Day: 1.5 hours per day Patient and/or Family Agrees t: Yes Time/GCodes Time In: 1325 Time Out: 1355 Total Billed Treatment Time: 30 Total Billed Treatment 1, GT 20', Ex 10' MANN BROOKE PT Aug 01, 2020 14:25
--- NOTE | 2020-08-01 14:51 | Occupational Ther Daily Note ---
OT Current Status-Daily Note Subjective No pain reported. Appearance Pt. in bed. Agrees to work with OT. Mental Status/Objective Patient Orientation: Person, Place, Time, Situation ADL-Treatment Therapy Code Descriptions/Definitions Functional Branch Measure: 0=Not Assessed/NA 4=Minimal Assistance 1=Total Assistance 5=Supervision or Setup 2=Maximal Assistance 6=Modified Branch 3=Moderate Assistance 7=Complete IndependenceSCALE: Activities may be completed with or without assistive devices. 1-Mhqmboshhn-adxqzam completes the activity by him/herself with no assistance from a helper. 5-Set-up or Clean-up Assistance-helper sets up or cleans up; patient completes activity. [place] assists only prior to or following the activity. 4-Supervision or Touching Assistance-helper provides verbal cues and/or touching/steadying and/or contact guard assistance as patient completes activity. Assistance may be provided throughout the activity or intermittently. 3-Partial/Moderate Assistance-helper does LESS THAN HALF the effort. [place] lifts, holds or supports trunk or limbs, but provides less than half the effort. 2-Substantial/Maximal Assistance-helper does MORE THAN HALF the effort. [place] lifts or holds trunk or limbs and provides more than half the effort. 6-Lfaopjxbc-veqxxz does ALL the effort. Patient does none of the effort to complete the activity. Or, the assistance of 2 or more helpers is required for the patient to complete the activity. If activity was not attempted, code reason: 7-Patient Refused. 9-Not Applicable-not attempted and the patient did not perform the activity before the current illness, exacerbation or injury. 10-Not Attempted due to Environmental Limitations-(lack of equipment, weather restraints, etc.). 88-Not Attempted due to Medical Conditions or Safety Concerns. Lower Body Dressing (QC): 5 (Set up to doff shorts and don pants.) On/Off Footwear: 5 (Set up with sock aide to don slipper socks.) Other Treatment Pt. demonstrated ability to don back brace with SBA. Ambulated around therapy dining area and educated on back safety when performing kitchen tasks. Pt. verbalizes understanding and will have assistance at home from spouse. Pt. ambulated to therapy gym and completed tana activities with no resistance, for endurance and ROM. Tolerated this for 3 minutes with no difficulty. Ambulated back to room and transferred sit-supine with SBA. All needs met. Education OT Patient Education: Correct positioning, Exercise program, Modified ADL techniques, Progress toward Goal/Update tx plan, Purpose of tx/functional activities, Reviewed precautions, Rehab process, Transfer techniques Teaching Recipient: Patient Teaching Methods: Demonstration, Discussion Response to Teaching: Verbalize Understanding, Return Demonstration OT [facility] Goals Geophysical Engineer Goals Time Frame: Aug 14, 2020 Eating (QC): 6 Oral Hygiene (QC): 6 Toileting Hygiene (QC): 6 Shower/Bathe Self (QC): 6 Upper Body Dressing (QC): 6 Lower Body Dressing (QC): 6 On/Off Footwear (QC): 6 Additional Goals: 1-Demonstrate ADL Tasks, 2-Verbalize Understanding, 3-ImproveStrength/Delma 1=Demonstrate adherence to instructed precautions during ADL tasks. 2=Patient will verbalize/demonstrate understanding of assistive devices/modifications for ADL. 3=Patient will improve strength/tolerance for activity to enable patient to perform ADL's. OT Education/Plan Problem List/Assessment Assessment: Decreased Activ Tolerance, Impaired I ADL's, Impaired Self-Care Skills Discharge Recommendations Plan/Recommendations: Continue POC Therapy Discharge Recommendati: Home & Family Equpiment Recommendations-D/C: Hip Kit Treatment Plan/Plan of Care Treatment,Training & Education: Yes Patient would benefit from OT for education, treatment and training to promote independence in ADL's, mobility, safety and/or upper extremity function for ADL's. Plan of Care: ADL Retraining, Functional Mobility, UE Funct Exercise/Act Treatment Duration: Aug 14, 2020 Frequency: At least 5 of 7 days/Wk (IRF) Estimated Hrs Per Day: 1.5 hours per day Agreement: Yes Rehab Potential: Good Time/GCodes Start Time: 08:45 Stop Time: 09:30 Total Time Billed (hr/min): 45 Billed Treatment Time 1, ADL x 15minutes, Ex x 15minutes, FA x 15minutes ANTONETTE HOBBS OT Aug 01, 2020 14:51
--- NOTE | 2020-08-01 14:58 | Occupational Ther Daily Note ---
OT Current Status-Daily Note Subjective No pain reported. Mental Status/Objective Patient Orientation: Person, Place, Time, Situation ADL-Treatment Therapy Code Descriptions/Definitions Functional Placer Measure: 0=Not Assessed/NA 4=Minimal Assistance 1=Total Assistance 5=Supervision or Setup 2=Maximal Assistance 6=Modified [place] 3=Moderate Assistance 7=Complete IndependenceSCALE: Activities may be completed with or without assistive devices. 7-Mixpfnhpaq-yigrqwm completes the activity by him/herself with no assistance from a helper. 5-Set-up or Clean-up Assistance-helper sets up or cleans up; patient completes activity. [place] assists only prior to or following the activity. 4-Supervision or Touching Assistance-helper provides verbal cues and/or touching/steadying and/or contact guard assistance as patient completes activity. Assistance may be provided throughout the activity or intermittently. 3-Partial/Moderate Assistance-helper does LESS THAN HALF the effort. [place] lifts, holds or supports trunk or limbs, but provides less than half the effort. 2-Substantial/Maximal Assistance-helper does MORE THAN HALF the effort. [place] lifts or holds trunk or limbs and provides more than half the effort. 5-Yckjituen-mqyqsd does ALL the effort. Patient does none of the effort to complete the activity. Or, the assistance of 2 or more helpers is required for the patient to complete the activity. If activity was not attempted, code reason: 7-Patient Refused. 9-Not Applicable-not attempted and the patient did not perform the activity before the current illness, exacerbation or injury. 10-Not Attempted due to Environmental Limitations-(lack of equipment, weather restraints, etc.). 88-Not Attempted due to Medical Conditions or Safety Concerns. Other Treatment Pt. agrees to work with OT. Ambulated in dining area with walker and SBA. Pt. able to tolerate approximately 400 feet. Ambulated to therapy gym and practiced bed mobility transfers with correct technique for log roll and sit to/from supine. Tolerated well. Pt. completed 10 minutes on arm bike at min resistance for overall endurance training. Ambulated back to room and transferred to bed with SBA. All needs met. Education OT Patient Education: Correct positioning, Exercise program, Modified ADL techniques, Progress toward Goal/Update tx plan, Purpose of tx/functional activities, Reviewed precautions, Rehab process, Transfer techniques Teaching Recipient: Patient Teaching Methods: Demonstration, Discussion Response to Teaching: Verbalize Understanding, Return Demonstration OT Formula Room Worker Goals Formula Room Worker Goals Time Frame: Aug 14, 2020 Eating (QC): 6 Oral Hygiene (QC): 6 Toileting Hygiene (QC): 6 Shower/Bathe Self (QC): 6 Upper Body Dressing (QC): 6 Lower Body Dressing (QC): 6 On/Off Footwear (QC): 6 Additional Goals: 1-Demonstrate ADL Tasks, 2-Verbalize Understanding, 3- ImproveStrength/Delma 1=Demonstrate adherence to instructed precautions during ADL tasks. 2=Patient will verbalize/demonstrate understanding of assistive devices/modif ications for ADL. 3=Patient will improve strength/tolerance for activity to enable patient to perform ADL's. OT Education/Plan Problem List/Assessment Assessment: Decreased Activ Tolerance, Impaired I ADL's, Impaired Self-Care Skills Discharge Recommendations Plan/Recommendations: Continue POC Therapy Discharge Recommendati: Home & Family Equpiment Recommendations-D/C: Hip Kit Treatment Plan/Plan of Care Treatment,Training & Education: Yes Patient would benefit from OT for education, treatment and training to promote independence in ADL's, mobility, safety and/or upper extremity function for ADL's. Plan of Care: ADL Retraining, Functional Mobility, UE Funct Exercise/Act Treatment Duration: Aug 14, 2020 Frequency: At least 5 of 7 days/Wk (IRF) Estimated Hrs Per Day: 1.5 hours per day Agreement: Yes Rehab Potential: Good Time/GCodes Start Time: 10:00 Stop Time: 10:45 Total Time Billed (hr/min): 45 Billed Treatment Time 1, FA x 30minutes, Ex x 15minutes ANTONETTE HOBBS OT Aug 01, 2020 14:58
[2020-08-01 16:15] VITALS: BP 124/84
[2020-08-01] MEDS: ZOLPIDEM 5 MG (AMBIEN) TAB PO PRN (21:00)
[2020-08-02] MEDS: oxyCODONE/APAP 5/325MG (PERCOCET 5) TABLET PO PRN ×4 (01:49→21:08)
[2020-08-02 05:56] VITALS: BP 136/75
[2020-08-02] MEDS: metFORMIN 500 MG (GLUCOPHAGE) TAB PO SCH ×2 (06:16→17:18)
[2020-08-02] MEDS: BACLOFEN 10 MG (LIORESAL) TAB PO PRN ×2 (06:18→20:19)
--- NOTE | 2020-08-02 07:02 | PM&R Progress Note ---
Subjective HPI/CC On Admission Date Seen by Provider: Aug 02, 2020 Time Seen by Provider: 11:00 Subjective/Events-last exam 08/02/20: No issues Ad priscilla in room DC tomorrow BM+ 08/01/20: Pt wants to go home in two days Walking around pretty well Pain is very well controlled Bowels are moving 07/31/20: Pt really irritated and wants to leave Family really wants him to stay Denies any significant new issues Pain is pretty well controlled Just took a shower and feels much better about everything Disappointed that his was not able to visit him in rehab when she stayed with him at [facility] Review of Systems Musculoskeletal: back pain Objective Exam Vital Signs Vital Signs Date Time Temp Pulse Resp B/P (MAP) Pulse Ox O2 Delivery O2 Flow Rate FiO2 08/03/20 06:00 36.8 68 17 159/75 (103) 94 Room Air Capillary Refill : Less Than 3 Seconds General Appearance: No Apparent Distress, WD/WN, Chronically ill HEENT: PERRL/EOMI, Normal ENT Inspection, Pharynx Normal Neck: Full Range of Motion, Normal Inspection, Non Tender, Supple, Carotid Bruit Respiratory: Chest Non Tender, Lungs Clear, Normal Breath Sounds, No Accessory Muscle Use, No Respiratory Distress Cardiovascular: Regular Rate, Rhythm, No Edema, No Gallop, No JVD, No Murmur, Normal Peripheral Pulses Gastrointestinal: Normal Bowel Sounds, No Organomegaly, No Pulsatile Mass, Non Tender, Soft Back: Decreased Range of Motion, Muscle Spasm, Vertebral Tenderness Extremity: Normal Capillary Refill, Normal Inspection, Normal Range of Motion, Non Tender, No Calf Tenderness, No Pedal Edema Neurologic/Psychiatric: Alert, Oriented x3, Normal Mood/Affect, Motor Weakness (legs 4/5) Skin: Normal Color, Warm/Dry Lymphatic: No Adenopathy Results/Procedures Lab Patient resulted labs reviewed. FIM Transfers Therapy Code Descriptions/Definitions Functional [place] Measure: 0=Not Assessed/NA 4=Minimal Assistance 1=Total Assistance 5=Supervision or Setup 2=Maximal Assistance 6=Modified [place] 3=Moderate Assistance 7=Complete IndependenceSCALE: Activities may be completed with or without assistive devices. 1-Rbmctiexdz-uozbqvi completes the activity by him/herself with no assistance from a helper. 5-Set-up or Clean-up Assistance-helper sets up or cleans up; patient completes activity. [place] assists only prior to or following the activity. 4-Supervision or Touching Assistance-helper provides verbal cues and/or touching/steadying and/or contact guard assistance as patient completes activity. Assistance may be provided throughout the activity or intermittently. 3-Partial/Moderate Assistance-helper does LESS THAN HALF the effort. [place] lifts, holds or supports trunk or limbs, but provides less than half the effort. 2-Substantial/Maximal Assistance-helper does MORE THAN HALF the effort. [place] lifts or holds trunk or limbs and provides more than half the effort. 6-Hvtgirkyl-zrwhkf does ALL the effort. Patient does none of the effort to complete the activity. Or, the assistance of 2 or more helpers is required for the patient to complete the activity. If activity was not attempted, code reason: 7-Patient Refused. 9-Not Applicable-not attempted and the patient did not perform the activity before the current illness, exacerbation or injury. 10-Not Attempted due to Environmental Limitations-(lack of equipment, weather restraints, etc.). 88-Not Attempted due to Medical Conditions or Safety Concerns. Roll Left to Right (QC): 6 Sit to Lying (QC): 6 Sit to Stand (QC): 6 Chair/Fgv-xt-Roagf Xfer(QC): 6 Car Transfer (QC): 4 Gait Training Does the Patient Walk?: Yes Distance: 500 ft Walk 10 feet (QC): 4 Walk 50 ft with 2 Turns(QC): 6 Walk 150 ft (QC): 4 Walking 10ft/uneven surface-QC: 4 Gait Persons Needed: 1 Gait Assistive Device: FWW Wheelchair Training Does the Pt Use a Wheelchair?: No Wheel 50 ft with 2 turns (QC): 9 Wheel 150 ft (QC): 9 Stair Training #of Steps: 4 1 Step (curb) (QC): 4 4 Steps (QC): 4 12 Steps (QC): 88 Balance Picking up an Object (QC): 88 ADL-Treatment Eating (QC): 6 Oral Hygiene (QC): 88 (Pt. does not have dentures in.) Shower/Bathe Self (QC): 4 (SBA in shower.) Upper Body Dressing (QC): 4 (SBA to doff shirt. Pt. 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
[2020-08-02 09:00] VITALS: BP 137/63
[2020-08-02] MEDS: BACITRACIN OINTMENT 28 GM TUBE TOP SCH (09:46)
[2020-08-02] MEDS: meTOproloL SUCCINATE 50 MG (TOPROL XL) TAB PO SCH (09:46)
[2020-08-02] MEDS: FUROSEMIDE 20 MG (LASIX) TAB PO SCH (09:46)
[2020-08-02] MEDS: amLODIPine 5 MG (NORVASC) TAB PO SCH (09:46)
[2020-08-02] MEDS: lisINopril 20 MG (PRINIVIL) TABLET PO SCH (09:46)
[2020-08-02] MEDS: SENNA W/DOCUSATE (SENOKOT S) TABLET PO SCH ×2 (09:47→19:16)
[2020-08-02] MEDS: polyethylene glycoL POWDER 17 GM (MIRALAX) PACK PO SCH ×2 (09:47→19:16)
--- NOTE | 2020-08-02 10:32 | Occupational Ther Daily Note ---
OT Current Status-Daily Note Subjective No pain reported. Appearance Pt. in bathroom when OT entered room. Mental Status/Objective Patient Orientation: Person, Place, Time, Situation ADL-Treatment Therapy Code Descriptions/Definitions Functional [place] Measure: 0=Not Assessed/NA 4=Minimal Assistance 1=Total Assistance 5=Supervision or Setup 2=Maximal Assistance 6=Modified [place] 3=Moderate Assistance 7=Complete IndependenceSCALE: Activities may be completed with or without assistive devices. 1-Kgbaihqvzi-edaphqf completes the activity by him/herself with no assistance from a helper. 5-Set-up or Clean-up Assistance-helper sets up or cleans up; patient completes activity. [place] assists only prior to or following the activity. 4-Supervision or Touching Assistance-helper provides verbal cues and/or touching/steadying and/or contact guard assistance as patient completes activity. Assistance may be provided throughout the activity or intermittently. 3-Partial/Moderate Assistance-helper does LESS THAN HALF the effort. [place] lifts, holds or supports trunk or limbs, but provides less than half the effort. 2-Substantial/Maximal Assistance-helper does MORE THAN HALF the effort. [place] lifts or holds trunk or limbs and provides more than half the effort. 8-Odauokiaq-ovgxde does ALL the effort. Patient does none of the effort to complete the activity. Or, the assistance of 2 or more helpers is required for the patient to complete the activity. If activity was not attempted, code reason: 7-Patient Refused. 9-Not Applicable-not attempted and the patient did not perform the activity before the current illness, exacerbation or injury. 10-Not Attempted due to Environmental Limitations-(lack of equipment, weather restraints, etc.). 88-Not Attempted due to Medical Conditions or Safety Concerns. Eating (QC): 6 Oral Hygiene (QC): 88 (Pt. not wearing his dentures.) Shower/Bathe Self (QC): 5 (Set up in shower.) Upper Body Dressing (QC): 6 Lower Body Dressing (QC): 6 On/Off Footwear: 4 (OT placed elastic laces in shoes. Pt. able to don with AE and SBA. Pt. able to don socks with sock aide independently.) Toileting Hygiene (QC): 6 (Pt. issued toileting device for easier ability.) Toilet Transfer (QC): 6 Other Treatment After ADL treatment, pt. requests to ambulate. Ambulated approximately 300 feet with walker. Pt. independent. Education OT Patient Education: Correct positioning, Modified ADL techniques, Progress toward Goal/Update tx plan, Purpose of tx/functional activities, Reviewed precautions, Rehab process, Transfer techniques, Use of adapted equipment Teaching Recipient: Patient Teaching Methods: Demonstration, Discussion Response to Teaching: Verbalize Understanding, Return Demonstration OT Long-Term Goals Long-Term Goals Time Frame: Aug 14, 2020 Eating (QC): 6 Oral Hygiene (QC): 6 Toileting Hygiene (QC): 6 Shower/Bathe Self (QC): 6 Upper Body Dressing (QC): 6 Lower Body Dressing (QC): 6 On/Off Footwear (QC): 6 Additional Goals: 1-Demonstrate ADL Tasks, 2-Verbalize Understanding, 3- ImproveStrength/[place] 1=Demonstrate adherence to instructed precautions during ADL tasks. 2=Patient will verbalize/demonstrate understanding of assistive devices/modifications for ADL. 3=Patient will improve strength/tolerance for activity to enable patient to perform ADL's. OT Education/Plan Problem List/Assessment Assessment: Decreased Activ Tolerance Discharge Recommendations Plan/Recommendations: Continue POC Therapy Discharge Recommendati: Home & Family Equpiment Recommendations-D/C: Hip Kit Treatment Plan/Plan of Care Treatment,Training & Education: Yes Patient would benefit from OT for education, treatment and training to promote independence in ADL's, mobility, safety and/or upper extremity function for ADL's. Plan of Care: ADL Retraining, Functional Mobility, UE Funct Exercise/Act Treatment Duration: Aug 14, 2020 Frequency: At least 5 of 7 days/Wk (IRF) Estimated Hrs Per Day: 1.5 hours per day Agreement: Yes Rehab Potential: Good Time/GCodes Start Time: 09:30 Stop Time: 10:30 Total Time Billed (hr/min): 60 Billed Treatment Time 1, ADL x 45minutes, FA x 15minutes ANTONETTE HOBBS OT Aug 02, 2020 10:31
--- NOTE | 2020-08-02 13:28 | Occupational Ther Daily Note ---
OT Current Status-Daily Note Subjective Pt alert, lying in bed. Pt agrees to therapy. No c/o pain. Mental Status/Objective Patient Orientation: Person, Place, Time, Situation ADL-Treatment Therapy Code Descriptions/Definitions Functional [place] Measure: 0=Not Assessed/NA 4=Minimal Assistance 1=Total Assistance 5=Supervision or Setup 2=Maximal Assistance 6=Modified [place] 3=Moderate Assistance 7=Complete IndependenceSCALE: Activities may be completed with or without assistive devices. 2-Vkyqhfopyp-cwxhioq completes the activity by him/herself with no assistance from a helper. 5-Set-up or Clean-up Assistance-helper sets up or cleans up; patient completes activity. [place] assists only prior to or following the activity. 4-Supervision or Touching Assistance-helper provides verbal cues and/or touching/steadying and/or contact guard assistance as patient completes activity. Assistance may be provided throughout the activity or intermittently. 3-Partial/Moderate Assistance-helper does LESS THAN HALF the effort. [place] lifts, holds or supports trunk or limbs, but provides less than half the effort. 2-Substantial/Maximal Assistance-helper does MORE THAN HALF the effort. [place] lifts or holds trunk or limbs and provides more than half the effort. 0-Evwwfgwfr-lscwss does ALL the effort. Patient does none of the effort to complete the activity. Or, the assistance of 2 or more helpers is required for the patient to complete the activity. If activity was not attempted, code reason: 7-Patient Refused. 9-Not Applicable-not attempted and the patient did not perform the activity before the current illness, exacerbation or injury. 10-Not Attempted due to Environmental Limitations-(lack of equipment, weather restraints, etc.). 88-Not Attempted due to Medical Conditions or Safety Concerns. Other Treatment Pt educated on medium resistance UE theraband exercises. Skilled instructions for technique and modifications for HEP. Pt complete 6 exercises in all planes, 3 sets 10 reps, to increase strength and activity tolerance for daily functional tasks. After therapy, pt lying in bed with call light/phone in reach. All needs met in room. Education OT Patient Education: Home exercise program Teaching Recipient: Patient Teaching Methods: Demonstration, Handout, Discussion Response to Teaching: Verbalize Understanding, Return Demonstration, Reinforcement Needed OT Correction Goals Metal Bending Machine Operator Goals Time Frame: Aug 14, 2020 Eating (QC): 6 Oral Hygiene (QC): 6 Toileting Hygiene (QC): 6 Shower/Bathe Self (QC): 6 Upper Body Dressing (QC): 6 Lower Body Dressing (QC): 6 On/Off Footwear (QC): 6 Additional Goals: 1-Demonstrate ADL Tasks, 2-Verbalize Understanding, 3- ImproveStrength/[place] 1=Demonstrate adherence to instructed precautions during ADL tasks. 2=Patient will verbalize/demonstrate understanding of assistive devices/modifications for ADL. 3=Patient will improve strength/tolerance for activity to enable patient to perform ADL's. OT Education/Plan Problem List/Assessment Assessment: Decreased Activ Tolerance, Decreased UE Strength Discharge Recommendations Plan/Recommendations: Continue POC Treatment Plan/Plan of Care Patient would benefit from OT for education, treatment and training to promote independence in ADL's, mobility, safety and/or upper extremity function for ADL's. Plan of Care: ADL Retraining, Functional Mobility, UE Funct Exercise/Act Treatment Duration: Aug 14, 2020 Frequency: At least 5 of 7 days/Wk (IRF) Estimated Hrs Per Day: 1.5 hours per day Agreement: Yes Rehab Potential: Good Time/GCodes Start Time: 13:00 Stop Time: 13:30 Total Time Billed (hr/min): 30 Billed Treatment Time 1 visit-EX 2 (30 min) RUMA CARDOSO Aug 02, 2020 13:28
--- NOTE | 2020-08-02 14:53 | Physical Therapy Daily Note ---
PT Daily Note-Current Subjective Pt presents in (L) sidelying with RN present in room changing dressing. Pt agreeable to therapy treatment and dons back brace independently. Denies pain throughout session. Appearance Following session, pt returned to reclined in bed with call light and tray within reach. All needs met at this time. Mental Status Patient Orientation: Person, Place, Time, Situation Transfers SCALE: Activities may be completed with or without assistive devices. 9-Rjdmtphrpc-magxshg completes the activity by him/herself with no assistance from a helper. 5-Set-up or Clean-up Assistance-helper sets up or cleans up; patient completes activity. [place] assists only prior to or following the activity. 4-Supervision or Touching Assistance-helper provides verbal cues and/or touching/steadying and/or contact guard assistance as patient completes activity. Assistance may be provided throughout the activity or intermittently. 3-Partial/Moderate Assistance-helper does LESS THAN HALF the effort. [place] lifts, holds or supports trunk or limbs, but provides less than half the effort. 2-Substantial/Maximal Assistance-helper does MORE THAN HALF the effort. [place] lifts or holds trunk or limbs and provides more than half the effort. 8-Cuqyrxvms-sqppbq does ALL the effort. Patient does none of the effort to complete the activity. Or, the assistance of 2 or more helpers is required for the patient to complete the activity. If activity was not attempted, code reason: 7-Patient Refused. 9-Not Applicable-not attempted and the patient did not perform the activity before the current illness, exacerbation or injury. 10-Not Attempted due to Environmental Limitations-(lack of equipment, weather restraints, etc.). 88-Not Attempted due to Medical Conditions or Safety Concerns. Sit to Lying (QC): 6 Sit to Stand (QC): 6 Weight Bearing Right Lower Extremity: Right Full Weight Bearing Left Lower Extremity: Left Full Weight Bearing Gait Training Distance: 250' ; 500' Walk 150 ft (QC): 4 Gait Assistive Device: FWW Pt ambulates well; however, demonstrates forward flexed posture throughout gait. Pt able to correct with verbal cueing but doesn't carry over throughout entirety of gait training. Exercises NuStep Minutes: 10 NuStep Workload: 5 Assessment Current Status: Good Progress Pt progressing well with activity tolerance, he continues to require verbal cueing for gait posture but is able to correct. Pt demonstrating safe functional mobility throughout session. PT Short Term Goals Short Term Goals Time Frame: Aug 07, 2020 Roll Left & Right: 6 Sit to lyin Sit to stand: 4 Chair/kpp-qm-kjuaz transfer: 4 Walk 10 feet: 4 Walk 50 feet with two turns: 4 Walk 150 feet: 4 PT Employment Counselor Goals Usp Goals PT Usp Goals Time Frame: Aug 21, 2020 Roll Left & Right (QC): 6 Sit to Lying (QC): 6 Lying-Sitting on Side/Bed(QC): 6 Sit to Stand (QC): 6 Chair/Mrg-lu-Lsima Xfer(QC): 6 Toilet Transfer (QC): 6 Car Transfer (QC): 6 Does the Patient Walk: Yes Walk 10 feet (QC): 6 Walk 50ft with 2 Turns (QC): 6 Walk 150 ft (QC): 6 Walking 10ft on Uneven Surface: 6 1 Step (curb) (QC): 6 4 Steps (QC): 6 12 Steps (QC): 6 Picking up an Object (QC): 88 Wheel 50 feet with 2 turns (QC: 9 Wheel 150 feet: 9 PT Plan Problem List Problem List: Activity Tolerance, Functional Strength, Safety, Balance, Gait, Transfer, Bed Mobility, ROM Treatment/Plan Treatment Plan: Continue Plan of Care Treatment Plan: Bed Mobility, Education, Functional Activity [place], Functional Strength, Group Therapy, Gait, Safety, Therapeutic Exercise, Transfers Treatment Duration: Aug 21, 2020 Frequency: At least 5 of 7 days/Wk (IRF) Estimated Hrs Per Day: 1.5 hours per day Patient and/or Family Agrees t: Yes Time/GCodes Time In: 1330 Time Out: 1400 Total Billed Treatment 1 visit Ex (15') GT (15') FELISA RIVERA PT Aug 02, 2020 14:53
--- NOTE | 2020-08-02 15:23 | Physical Therapy Daily Note ---
PT Daily Note-Current Subjective Pt agreeable. Pt without complaint of pain. Mental Status Patient Orientation: Person, Place, Situation Transfers SCALE: Activities may be completed with or without assistive devices. 5-Naquzocyir-hztehkt completes the activity by him/herself with no assistance from a helper. 5-Set-up or Clean-up Assistance-helper sets up or cleans up; patient completes activity. [place] assists only prior to or following the activity. 4-Supervision or Touching Assistance-helper provides verbal cues and/or touchi ng/steadying and/or contact guard assistance as patient completes activity. Assistance may be provided throughout the activity or intermittently. 3-Partial/Moderate Assistance-helper does LESS THAN HALF the effort. [place] lifts, holds or supports trunk or limbs, but provides less than half the effort. 2-Substantial/Maximal Assistance-helper does MORE THAN HALF the effort. [place] lifts or holds trunk or limbs and provides more than half the effort. 2-Abigpxgkg-swynmp does ALL the effort. Patient does none of the effort to complete the activity. Or, the assistance of 2 or more helpers is required for the patient to complete the activity. If activity was not attempted, code reason: 7-Patient Refused. 9-Not Applicable-not attempted and the patient did not perform the activity before the current illness, exacerbation or injury. 10-Not Attempted due to Environmental Limitations-(lack of equipment, weather restraints, etc.). 88-Not Attempted due to Medical Conditions or Safety Concerns. Roll Left & Right (QC): 6 Sit to Lying (QC): 6 Lying to Sitting/Side of Bed(Q: 6 Sit to Stand (QC): 6 Chair/Nno-sy-Moqhv Xfer(QC): 6 Toilet Transfer (QC): 6 Car Transfer (QC): 6 Weight Bearing Right Lower Extremity: Right Full Weight Bearing Left Lower Extremity: Left Full Weight Bearing Gait Training Does the Patient Walk?: Yes Walk 10 feet (QC): 6 Walk 50 ft with 2 Turns(QC): 6 Walk 150 ft (QC): 6 Walking 10ft/uneven surface-QC: 6 Gait Persons Needed: 1 Gait Assistive Device: FWW Pt amb with FWW and CGA-SBA x 450ft. Wheelchair Training Does the Pt Use a Wheelchair?: No Stair Training Stair Training: Handrails/: 2 handrails #of Steps: 12 1 Step (curb) (QC): 6 4 Steps (QC): 6 12 Steps (QC): 6 Stairs: Pattern: Step to Balance Picking up an Object (QC): 5 Exercises Seated Therapy Exercises: Long arc quads Seated Reps: [address] Ex=Flex, Abd, Ext, Sit to Stand, Side steps Standing Reps: 10 NuStep Minutes: 15 NuStep Workload: 4 Treatments Pt seen for gait training, balance ther ex in bars including side stepping x 4 trips in //bars, sit to stand training, Nu-step x 15min Assessment Current Status: Excellent Progress Pt nakita very well with rest breaks as needed. Pt back to bed with call light, doffed lumbar brace and shoes (I). Pt resting with all needs met. PT Short Term Goals Short Term Goals Time Frame: Aug 07, 2020 Roll Left & Right: 6 Sit to lyin Sit to stand: 4 Chair/hsk-hc-sdlpk transfer: 4 Walk 10 feet: 4 Walk 50 feet with two turns: 4 Walk 150 feet: 4 PT Senior Care Goals Senior Care Goals PT Senior Care Goals Time Frame: Aug 21, 2020 Roll Left & Right (QC): 6 Sit to Lying (QC): 6 Lying-Sitting on Side/Bed(QC): 6 Sit to Stand (QC): 6 Chair/Nge-it-Fmpmt Xfer(QC): 6 Toilet Transfer (QC): 6 Car Transfer (QC): 6 Does the Patient Walk: Yes Walk 10 feet (QC): 6 Walk 50ft with 2 Turns (QC): 6 Walk 150 ft (QC): 6 Walking 10ft on Uneven Surface: 6 1 Step (curb) (QC): 6 4 Steps (QC): 6 12 Steps (QC): 6 Picking up an Object (QC): 88 Wheel 50 feet with 2 turns (QC: 9 Wheel 150 feet: 9 PT Plan Treatment/Plan Treatment Plan: Continue Plan of Care Treatment Plan: Bed Mobility, Education, Functional Activity [place], Functional Strength, Group Therapy, Gait, Safety, Therapeutic Exercise, Transfers Treatment Duration: Aug 21, 2020 Frequency: At least 5 of 7 days/Wk (IRF) Estimated Hrs Per Day: 1.5 hours per day Patient and/or Family Agrees t: Yes Time/GCodes Time In: 1030 Time Out: 1130 Total Billed Treatment Time: 60 Total Billed Treatment 1, Ex x 45', Gait x 15' FARIDEH RUSSELL CPTA Aug 02, 2020 15:23
--- NOTE | 2020-08-02 16:30 | NUR ---
CM/SS PATIENT CARE CONFERENCE and DISCHARGE PLANNING Reviewed Summary with patient, he will discharge as planned tomorrow home with his spouse. IMM2 reviewed, signed, charted. DME: [facility] finalized with [facility] and delivered to patient room in preparation for discharge Andrea Moyer. Patient informed therapy had recommended Hip Kit and that his closest resource would be [facility] in [place]. Patient stated his gets their DME there and he would have her followup. Senior Sales Director added this recommendation to discharge instructions. Patient has been up ad priscilla per therapy approval, HHC was not a recommendation but could be ordered by patient's PCP or surgeon during those followups.
[2020-08-02 17:13] VITALS: BP 135/79
[2020-08-02] MEDS: ZOLPIDEM 5 MG (AMBIEN) TAB PO PRN (21:08)
[2020-08-03] MEDS: oxyCODONE/APAP 5/325MG (PERCOCET 5) TABLET PO PRN ×2 (04:18→11:03)
[2020-08-03 06:00] VITALS: BP 159/75
[2020-08-03] MEDS: metFORMIN 500 MG (GLUCOPHAGE) TAB PO SCH (06:17)
[2020-08-03] MEDS ORDERED: LISI-552 PO (06:56)
[2020-08-03] MEDS ORDERED: BACL10TA PO (06:56)
[2020-08-03] MEDS ORDERED: OXYC1TAB87 PO (06:56)
[2020-08-03] MEDS ORDERED: FURO20TA4 PO (06:56)
[2020-08-03] MEDS ORDERED: METO50TA7 PO (06:56)
[2020-08-03] MEDS ORDERED: SENN-20 PO (06:56)
[2020-08-03] MEDS ORDERED: AMLO-250 PO (06:56)
[2020-08-03] MEDS ORDERED: METF-397 PO (06:56)
--- NOTE | 2020-08-03 06:57 | Discharge Summary ---
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 HTN HLP DM Edema Plan: Pain control Monitor closely IRF protocol 07/31/20: Wants to leave AMA Pain control Labs stable 08/01/20: Monitor pain DC planned Discharge Summary Discharge Physical Examination Allergies: Coded Allergies: diphenhydramine (Verified Allergy, Mild, 07/30/20) patient states "gives him a high" Vitals & I&Os Vital Signs Date Time Temp Pulse Resp B/P (MAP) Pulse Ox O2 Delivery O2 Flow Rate FiO2 08/03/20 12:12 36.8 67 17 141/79 94 Room Air General Appearance: Alert, Oriented X3, Cooperative Respiratory: Clear to Auscultation Cardiovascular: Regular Rate Neuro: Normal Gait, Normal Speech, Strength at 5/5 X4 Ext Hospital Course Was the Problem List Reviewed?: Yes Short course in IRF after arrival from [facility] surgery with slow recovery. Patient did well and had pain well controlled and BM regimen restarted normal function. Patient labs remained stable and had no issues during his short stay but insistent on DC [facility] and even wanted to DC AMA initially but reluctantly stayed until 08/03. Labs (last 24 hrs) Laboratory Tests 07/30/20 12:24: Glucometer 114H 07/30/20 17:04: Glucometer 113H 07/30/20 20:36: Glucometer 123H 07/31/20 05:51: White Blood Count 9.1, Red Blood Count 4.22L, Hemoglobin 12.4L, Hematocrit 38L, Mean Corpuscular Volume 89, Mean Corpuscular Hemoglobin 29, Mean Corpuscular Hemoglobin Concent 33, Red Cell Distribution Width 14.5, Platelet Count 238, Mean Platelet Volume 10.3, Immature Granulocyte % (Auto) 0, Neutrophils (%) (Auto) 77H, Lymphocytes (%) (Auto) 13, Monocytes (%) (Auto) 7, Eosinophils (%) (Auto) 3, Basophils (%) (Auto) 1, Neutrophils # (Auto) 7.0, Lymphocytes # (Auto) 1.1, Monocytes # (Auto) 0.6, Eosinophils # (Auto) 0.2, Basophils # (Auto) 0.1, Immature Granulocyte # (Auto) 0.0, Sodium Level 135, Potassium Level 3.7, Chloride Level 101, Carbon Dioxide Level 24, Anion Gap 10, Blood Urea Nitrogen 13, Creatinine 0.76, Estimat Glomerular Filtration Rate > 60, BUN/Creatinine Ratio 17, Glucose Level 130H, Calcium Level 8.5, Corrected Calcium 9.2, Total Bilirubin 0.9, Aspartate Amino Transf (AST/SGOT) 55H, Alanine Aminotransferase (ALT/SGPT) 56H, Alkaline Phosphatase 147H, Total Protein 6.7, Albumin 3.1L 07/31/20 11:14: Glucometer 112H 07/31/20 16:32: Glucometer 127H 07/31/20 20:14: Glucometer 140H 08/01/20 05:30: Glucometer 155H 08/01/20 10:50: Glucometer 139H 08/01/20 15:43: Glucometer 129H 08/01/20 20:11: Glucometer 118H 08/02/20 05:39: Glucometer 123H 08/02/20 10:50: Glucometer 114H 08/02/20 15:48: Glucometer 132H 08/02/20 20:07: Glucometer 113H 08/03/20 05:44: Glucometer 115H 08/03/20 10:59: Glucometer 108 Pending Labs Laboratory Tests 07/30/20 12:24: Glucometer 114 07/30/20 17:04: Glucometer 113 07/30/20 20:36: Glucometer 123 07/31/20 05:51: White Blood Count 9.1, Red Blood Count 4.22, Hemoglobin 12.4, Hematocrit 38, Mean Corpuscular Volume 89, Mean Corpuscular Hemoglobin 29, Mean Corpuscular Hemoglobin Concent 33, Red Cell Distribution Width 14.5, Platelet Count 238, Mean Platelet Volume 10.3, Immature Granulocyte % (Auto) 0, Neutrophils (%) (Auto) 77, Lymphocytes (%) (Auto) 13, Monocytes (%) (Auto) 7, Eosinophils (%) (Auto) 3, Basophils (%) (Auto) 1, Neutrophils # (Auto) 7.0, Lymphocytes # (Auto) 1.1, Monocytes # (Auto) 0.6, Eosinophils # (Auto) 0.2, Basophils # (Auto) 0.1, Immature Granulocyte # (Auto) 0.0, Sodium Level 135, Potassium Level 3.7, Chloride Level 101, Carbon Dioxide Level 24, Anion Gap 10, Blood Urea Nitrogen 13, Creatinine 0.76, Estimat Glomerular Filtration Rate > 60, BUN/Creatinine Ratio 17, Glucose Level 130, Calcium Level 8.5, Corrected Calcium 9.2, Total Bilirubin 0.9, Aspartate Amino Transf (AST/SGOT) 55, Alanine Aminotransferase (ALT/SGPT) 56, Alkaline Phosphatase 147, Total Protein 6.7, Albumin 3.1 07/31/20 11:14: Glucometer 112 07/31/20 16:32: Glucometer 127 07/31/20 20:14: Glucometer 140 08/01/20 05:30: Glucometer 155 08/01/20 10:50: Glucometer 139 08/01/20 15:43: Glucometer 129 08/01/20 20:11: Glucometer 118 08/02/20 05:39: Glucometer 123 08/02/20 10:50: Glucometer 114 08/02/20 15:48: Glucometer 132 08/02/20 20:07: Glucometer 113 08/03/20 05:44: Glucometer 115 08/03/20 10:59: Glucometer 108 Discharge Home Medications: Active Scripts Active Metformin HCl 500 Mg Tablet 500 Mg PO BID@ Senna-Time S Tablet (Sennosides/Docusate Sodium) 1 Each Tablet 1 Ea PO BID Furosemide 20 Mg Tablet 20 Mg PO DAILY Percocet 5-325 mg Tablet (Oxycodone HCl/Acetaminophen) 1 Each Tablet 1-2 Tab PO Q4H PRN Lisinopril 20 Mg Tablet 20 Mg PO DAILY Amlodipine Besylate 5 Mg Tablet 5 Mg PO DAILY Metoprolol Succinate 50 Mg Tab.er.24h 50 Mg PO DAILY Baclofen 10 Mg Tablet 10 Mg PO TID PRN Instructions to patient/family Please see electronic discharge instructions given to patient. Diagnosis/Problems Diagnosis/Problems (1) Lumbar stenosis with neurogenic claudication (2) Hypertension (3) Hyperlipemia (4) Edema (5) Diabetes Clinical Quality Measures DVT/VTE Risk/Contraindication: Risk Factor Score Per Nursin RFS Level Per Nursing on Admit: 4+=Very High Other: BACK SURGERY HAIM BERNAL DO Aug 03, 2020 06:57
[2020-08-03] MEDS: lisINopril 20 MG (PRINIVIL) TABLET PO SCH (08:10)
[2020-08-03] MEDS: meTOproloL SUCCINATE 50 MG (TOPROL XL) TAB PO SCH (08:10)
[2020-08-03] MEDS: amLODIPine 5 MG (NORVASC) TAB PO SCH (08:10)
[2020-08-03] MEDS: polyethylene glycoL POWDER 17 GM (MIRALAX) PACK PO SCH (08:11)
[2020-08-03] MEDS: FUROSEMIDE 20 MG (LASIX) TAB PO SCH (08:11)
[2020-08-03] MEDS: SENNA W/DOCUSATE (SENOKOT S) TABLET PO SCH (08:11)
[2020-08-03 08:12] VITALS: BP 141/79
--- NOTE | 2020-08-03 09:41 | Therapy Team Discharge Summary ---
Therapy Discharge Summary Discharge Recommendations Date of Discharge Physical Therapy Patient came to rehab after surgery for lumbar stenosis. Upon evaluation patient performed bed mobility and supine <-> sit with SBA, sit <-> stand and transfers with CGA, car transfer CGA, ambulated 300' with a rolling walker with SBA (including 50' with at least 2 turns of 90 degrees and 10' over an uneven surface), and went up and down 4 steps using 2 handrails with CGA. Patient has been performing bed mobility and transfer training, balance and endurance training, functional strengthening, stair training, gait training, and education. Patient has made good progress and has met all of his custodial goa ls. Now, patient performs bed mobility and transfers with independence, car transfer independent, ambulates 450' with a rolling walker with independence (including 50' with at least 2 turns of 90 degrees and 10' over an uneven surface), and can go up and down 12 steps using 2 handrails with independence. Patient is discharging from this facility today and will be discharged from PT at this time. Occupational Therapy Decreased Activ Tolerance, Decreased UE Strength PT Longterm Goals Longterm Goals PT Longterm Goals Time Frame: Aug 21, 2020 Roll Left to Right (QC): 6 Sit to Lying (QC): 6 Lying-Sitting on Side/Bed(QC): 6 Sit to Stand (QC): 6 Chair/Yop-gw-Nzdvf Xfer(QC): 6 Car Transfer (QC): 6 Does the Patient Walk: Yes Walk 10 feet (QC): 6 Walk 10ft-Uneven Surface(QC): 6 Walk 50ft with 2 Turns (QC): 6 Walk 150 ft (QC): 6 Wheel 50 feet with 2 turns (QC: 9 1 Step (curb) (QC): 6 4 Steps (QC): 6 12 Steps (QC): 6 Picking up an Object (QC): 88 OT Longterm Goals Pipe Cutter Goals Time Frame: Aug 14, 2020 Eating (QC): 6 Oral Hygiene (QC): 6 Shower/Bathe Self (QC): 6 Upper Body Dressing (QC): 6 Lower Body Dressing (QC): 6 On/Off Footwear (QC): 6 Toileting Hygiene (QC): 6 Toilet/Commode Transfer (QC): 6 Additional Goals: 1-Demonstrate ADL Tasks, 2-Verbalize Understanding, 3- ImproveStrength/Delma 1=Demonstrate adherence to instructed precautions during ADL tasks. 2=Patient will verbalize/demonstrate understanding of assistive devices/modifications for ADL. 3=Patient will improve strength/tolerance for activity to enable patient to perform ADL's. BALWINDER EDDY PT Aug 03, 2020 09:41
--- NOTE | 2020-08-03 10:00 | NUR ---
DRESSING CHANGE TO LOWER BACK INCISION. BACITRACIN OINTMENT APPLIED. COVERED WITH ISLAND DRESSING. INCISION IS WELL APPROXIMATED WITH RACHEAL INTACT. NO DRAINAGE NOTED.
--- NOTE | 2020-08-03 11:24 | Therapy Team Discharge Summary ---
Therapy Discharge Summary Discharge Recommendations Date of Discharge 08-03-20 Therapy D/C Recommendations: Home w/ Family Support Occupational Therapy Pt. has been seen by occupational therapy to increase overall strength and independence with daily skills. Pt. has met all goals. He is able to use AE and walker safely. Pt. is discharging home with family support. Pt. would benefit from hip kit, but no further OT warranted at this time. No Skilled OT Needs ID'd PT Assisted Goals Assisted Goals PT Assisted Goals Time Frame: Aug 21, 2020 Roll Left to Right (QC): 6 Sit to Lying (QC): 6 Lying-Sitting on Side/Bed(QC): 6 Sit to Stand (QC): 6 Chair/Bik-cy-Iduwu Xfer(QC): 6 Car Transfer (QC): 6 Does the Patient Walk: Yes Walk 10 feet (QC): 6 Walk 10ft-Uneven Surface(QC): 6 Walk 50ft with 2 Turns (QC): 6 Walk 150 ft (QC): 6 Wheel 50 feet with 2 turns (QC: 9 1 Step (curb) (QC): 6 4 Steps (QC): 6 12 Steps (QC): 6 Picking up an Object (QC): 88 OT Assisted Goals Retirement Actuary Goals Time Frame: Aug 14, 2020 Eating (QC): 6 (met) Oral Hygiene (QC): 6 (met) Shower/Bathe Self (QC): 6 (met) Upper Body Dressing (QC): 6 (met) Lower Body Dressing (QC): 6 (met) On/Off Footwear (QC): 6 (met) Toileting Hygiene (QC): 6 (met) Toilet/Commode Transfer (QC): 6 (met) Additional Goals: 1-Demonstrate ADL Tasks, 2-Verbalize Understanding, 3- ImproveStrength/[place]ma 1=Demonstrate adherence to instructed precautions during ADL tasks. 2=Patient will verbalize/demonstrate understanding of assistive devices/modifications for ADL. 3=Patient will improve strength/tolerance for activity to enable patient to perform ADL's. ANTONETTE HOBBS OT Aug 03, 2020 11:23
[2020-08-03 12:12] VITALS: BP 141/79
--- NOTE | 2020-08-03 12:14 | NUR ---
ANALIA AGUIAR demonstrates understanding of discharge instructions and accurately returns instructions upon questioning. Copy of Post-Discharge Instructions given to PATIENT. ANALIA AGUIAR is able to manage continuing needs after discharge. Patient's belongings returned to PATIENT. Patient discharged from [facility] on 08/03/20 at 1210. ANALIA AGUIAR left floor via WHEELCHAIR, accompanied by STAFF.
== END 2020-08-03 12:17 | disposition home or self-care (01) | DRG 552 ==
PROVIDERS: ADMIT Internal Medicine; ATTEND Internal Medicine
DX: M48.062 Spinal stenosis, lumbar region with neurogenic claudication (principal); E78.00 Pure hypercholesterolemia, unspecified; E78.5 Hyperlipidemia, unspecified; I10 Essential (primary) hypertension; M19.91 Primary osteoarthritis, unspecified site; E11.9 Type 2 diabetes mellitus without complications; F32.9 Major depressive disorder, single episode, unspecified; Z85.6 Personal history of leukemia; Z85.72 Personal history of non-Hodgkin lymphomas
CPT/HCPCS: 36415; 80053; 82962; 85025

== ENCOUNTER 2020-12-25 10:07 | Inpatient (IN) | payer MEDICARE ==
[~2020-12-25] VITALS: Ht 182.9 cm; Wt 126.1 kg
[~2020-12-25 10:07] MED LIST changes: +AMLO-250 PO; +BACL10TA PO; +FURO20TA4 PO; +LISI20TA26 PO; +METF-397 PO; +METO50TA7 PO; +OXYC1TAB87 PO; +SENN-20 PO
[2020-12-25] MEDS ORDERED: DOCUSATE SODIUM 100 MG (COLACE) CAP PO PRN (13:45)
[2020-12-25] MEDS ORDERED: FLEET ENEMA ADULT 1 EA BTL PR PRN (13:45)
[2020-12-25] MEDS ORDERED: ONDANSETRON 4 MG (ZOFRAN) ORAL DISSOLVE TAB PO PRN (13:45)
[2020-12-25] MEDS ORDERED: HYDROcodone/APAP 5 MG/325 MG (LORTAB) TAB PO PRN (13:45)
[2020-12-25] MEDS ORDERED: CALCIUM CARBONATE 500 MG (TUMS) TAB.CHEW PO PRN (13:45)
[2020-12-25] MEDS ORDERED: BISACODYL 10 MG SUPP (DULCOLAX) PR PRN (13:45)
[2020-12-25] MEDS ORDERED: ALPRAZolam 0.25 MG (XANAX) TAB PO PRN (13:45)
[2020-12-25] MEDS ORDERED: guaiFENesin/CODEINE (ROBITUSSIN AC) 10ML UDC PO PRN (13:45)
[2020-12-25] MEDS ORDERED: ACETAMINOPHEN 325 MG TABLET PO PRN (13:45)
[2020-12-25] MEDS ORDERED: LOPERAMIDE 2 MG (IMODIUM) TABLET PO PRN (13:45)
[2020-12-25] MEDS ORDERED: LACTULOSE SYRUP 10GM/15ML (ENULOSE) 30ML UDC PO PRN (13:45)
[2020-12-25] MEDS ORDERED: TRAM50TA3 PO (14:32)
[2020-12-25] MEDS ORDERED: METF-397 PO ×2 (14:32)
[2020-12-25] MEDS ORDERED: GABA300C PO (14:32)
[2020-12-25] MEDS ORDERED: FURO20TA4 PO ×2 (14:32)
[2020-12-25] MEDS ORDERED: AMLO-250 PO (14:32)
[2020-12-25] MEDS ORDERED: AMLO2.5T4 PO (14:32)
[2020-12-25] MEDS ORDERED: METO-451 PO ×2 (14:32)
[2020-12-25] MEDS ORDERED: HYDR-3817 PO (14:32)
[2020-12-25] MEDS ORDERED: ASPI-999 PO (14:32)
[2020-12-25] MEDS ORDERED: LISI20TA26 PO ×2 (14:32)
[2020-12-25] MEDS ORDERED: ZOLP10TA PO ×2 (14:32)
[2020-12-25 16:35] VITALS: BP 158/72
[2020-12-25] MEDS ORDERED: NON-FORMULARY MEDICATION 1 EA EA (Zolpidem Tartrate (Ambien) 10 MG) PO PRN (18:00)
[2020-12-25] MEDS ORDERED: HYDROcodone/APAP 7.5 MG/325 MG (LORTAB, LORCET PLUS) TABLET PO PRN (18:00)
--- NOTE | 2020-12-25 18:00 | PM&R Post Admission Assessment ---
PM&R Date of Visit: December 25, 2020 Time of Visit: 19:00 History of Present Illness CC: Recovery from left hip replacement HPI: This is a 75yoWM who [facility] from [facility] after undergoing a left hip replacement and subsequent slow recovery since the uncomplicated surgery. He has multiple comorbidities and has required an inpatient rehab stay in the past prior to Xmas last year but nearly left AMA and aggressive PT will be needed to return back to independent living with his . Urinary retention noted so in/out caths ordered and Urology consult in morning. Patient already wants to go home and hire a private nurse to help him recover so he may very well leave AMA. Past Ogwbgpi-Uiukrl-Ntthxb Hx Past Med/Social Hx: Reviewed Nursing Past Med/Soc Hx, Reviewed and Corrections made Patient Social History Marrital Status: Employed/Student: retired Alcohol Use: Denies Use Smoking Status: Never a Smoker Recent Hopitalizations: Yes (07/30 Lumbar stenosis, TLIF) Immunizations Up To Date Date of Pneumonia Vaccine: Jul 30, 2017 Past Medical History Surgeries: Orthopedic Currently Using CPAP: No (stopped using 2 years ago; has machine at home) Currently Using BIPAP: No Cardiac: Chronic Edema/Swelling, High Cholesterol, Hypertension Reproductive: No Musculoskeletal: Arthritis Endocrine: Diabetes, Non-Insulin dep Hearing Impairment: Hard of Hearing Cancer: Leukemia, Lymphoma Did You Recieve Any Treatments: Yes What Type of Treatment Did You: Chemotherapy, Radiation, Surgical Intervention Psychosocial: Depression History of Blood Disorders: No Family History Cardiovascular disease 19 MOTHER Diabetes mellitus 19 MOTHER G8 BROTHER Myocardial infarction 19 FATHER PM&R Allergy/Meds/Data Review Allergies Coded Allergies: diphenhydramine (Verified Allergy, Mild, 07/30/20) patient states "gives him a high" Home Medications Scheduled Amlodipine Besylate (Amlodipine Besylate), 5 MG PO HS, (Reported) Aspirin (Aspirin), 81 MG PO BID, (Reported) Furosemide (Furosemide), 20 MG PO DAILY, (Reported) Gabapentin (Neurontin), 300 MG PO HS, (Reported) Lisinopril (Lisinopril), 20 MG PO DAILY, (Reported) Metformin HCl (Metformin HCl), 500 MG PO BID, (Reported) Metoprolol Tartrate (Lopressor), 50 MG PO DAILY, (Reported) Scheduled PRN Hydrocodone/Acetaminophen (Hydrocodone-Acetamin 7.5-325), 1 EACH PO Q4H PRN for PAIN-MODERATE (5-7), (Reported) Tramadol HCl (Tramadol HCl), 50-100 MG PO QID PRN for PAIN-MODERATE (5-7), (Reported) Zolpidem Tartrate (Ambien), 10 MG PO HS PRN for SLEEP, (Reported) Discontinued Medications Amlodipine Besylate (Amlodipine Besylate), 5 MG PO DAILY Discontinued Reason: No Longer Taking Amlodipine Besylate (Amlodipine Besylate), 5 MG PO DAILY, (Reported) Discontinued Reason: Duplicate Order Baclofen (Baclofen), 10 MG PO TID PRN for MUSCLE SPASMS Discontinued Reason: No Longer Taking Furosemide (Furosemide), 20 MG PO DAILY Discontinued Reason: No Longer Taking Lisinopril (Lisinopril), 20 MG PO DAILY Discontinued Reason: No Longer Taking Metformin HCl (Metformin HCl), 500 MG PO BID@ Discontinued Reason: No Longer Taking Metoprolol Succinate (Metoprolol Succinate), 50 MG PO DAILY Discontinued Reason: No Longer Taking Oxycodone HCl/Acetaminophen (Percocet 5-325 mg Tablet), 1-2 TAB PO Q4H PRN for P AIN-MODERATE (5-7) Discontinued Reason: No Longer Taking Sennosides/Docusate Sodium (Senna-Time S Tablet), 1 EA PO BID Discontinued Reason: No Longer Taking Current Medications Current Medications Reviewed Laboratory Data Laboratory Tests 12/25/20 17:21: Glucometer 171H Review of Systems Constitutional: see HPI, malaise, weakness Genitourinary: other (retention) Musculoskeletal: back pain, joint pain, muscle pain, muscle stiffness Physical Exam Physical Exam Vital Signs Vital Signs - First Documented 12/25/20 16:35 Temp 37.1 Pulse 84 Resp 20 B/P (MAP) 158/72 (100) Pulse Ox 95 Capillary Refill : Height, Weight, BMI Height: '" Weight: lbs. oz. kg; 36.52 BMI Method: General Appearance: No Apparent Distress, WD/WN, Chronically ill Eyes: Bilateral Eye Normal Inspection, Bilateral Eye PERRL HEENT: PERRL/EOMI, Normal ENT Inspection, Pharynx Normal Neck: Full Range of Motion, Normal Inspection, Non Tender, Supple, Carotid Bruit Respiratory: Chest Non Tender, Lungs Clear, Normal Breath Sounds, No Accessory Muscle Use, No Respiratory Distress Cardiovascular: Regular Rate, Rhythm, No Edema, No Gallop, No JVD, No Murmur, Normal Peripheral Pulses Gastrointestinal: Normal Bowel Sounds, No Organomegaly, No Pulsatile Mass, Non Tender, Soft Back: Normal Inspection, No CVA Tenderness, No Vertebral Tenderness Extremity: Normal Capillary Refill, Normal Inspection, Normal Range of Motion, Non Tender, No Calf Tenderness, No Pedal Edema Neurologic/Psychiatric: Alert, Oriented x3, No Motor/Sensory Deficits, Normal Mood/Affect, Abnormal Gait, Depressed Affect, Motor Weakness (left leg) Skin: Normal Color, Warm/Dry Lymphatic: No Adenopathy PM&R Medical Assessment & Plan REHAB/MEDICAL ASSESSMENT AND PLAN: REHAB IMPAIRMENT GROUP: Left hip replacement ETIOLOGIC DIAGNOSIS: Left hip replacement The comorbidities that impact the patients function and/or functional outcome by: resistant to medical management, urinary retention, HTN REHAB PLAN: The patient is being admitted to our comprehensive inpatient rehabilitation facility and can tolerate the intensity of service consisting of at least: 180 minutes of therapy a day, 5 out of 7 days a week Rehab treatment will consist of: PT OT will focus on regaining function of left leg while increasing ADL's and increase ability to return home with The patient/family has a good understanding of our discharge process and will benefit from an interdisciplinary inpatient rehabilitation program. The patient has potential to make improvement and is in need of at least two of the following multidisciplinary therapies including but not limited to physical, occupational, speech, and prosthetics and orthotics. Additionally the patient will need services from respiratory, nutritional services, wound care, psychology, etc. (Customize this to each patient). Given the patients complex condition and risk of further medical complications, rehabilitation services cannot be safely or effectively provided at a lower level of care such as a alf facility. BARRIERS TO DISCHARGE: Resistance to medical management ESTIMATED LOS: 7 days DISPOSITION: Home RELEVANT CHANGES SINCE PREADMISSION SCREENING: I have compared the patients medical and functional status at the time of the preadmission screening and there are: no changes PROGNOSIS: Good REHABILITATION GOALS: 1. PT OT will focus on regaining function of left leg while increasing ADL's and increase ability to return home with All the above goals were reviewed with the patient and he/she is in agreement. By signing this document, I acknowledge that I have personally performed a full physical examination on this patient within 24 hours of admission to this inpatient rehabilitation facility and have determined the patient to be able to tolerate the above course of treatment at an intensive level for a reasonable period of time. I will be completing a detailed individualized Plan of Care for this patient by day #4 of the patients stay based upon the Preadmission Screen, the Post-Admission Evaluation, and the therapy evaluations. Admission Dx/Comorbidities: (1) Status post left hip replacement ICD Codes: Z96.642 - Presence of left artificial hip joint (2) Hypertension ICD Codes: I10 - Essential (primary) hypertension (3) Hyperlipemia ICD Codes: E78.5 - Hyperlipidemia, unspecified (4) Edema ICD Codes: R60.9 - Edema, unspecified (5) Diabetes ICD Codes: E11.9 - Type 2 diabetes mellitus without complications Assessment/Plan Assessment and Plan Assess & Plan/Chief Complaint Assessment: s/p left hip replacement Acute urinary retention requiring in/out caths HTN HLP DM Edema Leukemia/Lymphoma hx Resistant to medical management Plan: Urology consult Bladder meds Monitor pain IRF protocol December leave HAIM MARTE DO December 25, 2020 18:00
[2020-12-25] MEDS: metFORMIN 500 MG (GLUCOPHAGE) TAB PO SCH (18:41)
[2020-12-25] MEDS: PHENAZOPYRIDINE 100 MG (PYRIDIUM) TABLET PO SCH (19:22)
[2020-12-25] MEDS: BETHANECHOL 25 MG (URECHOLINE) TAB PO SCH ×2 (19:22→20:47)
[2020-12-25] MEDS: TAMSULOSIN 0.4 MG (FLOMAX) CAP PO SCH ×2 (19:23→20:51)
[2020-12-25 20:00] VITALS: BP 162/77
[2020-12-25] MEDS: DOCUSATE SODIUM 100 MG (COLACE) CAP PO SCH (20:46)
[2020-12-25] MEDS: ASPIRIN 81 MG CHEW (CHILDREN'S ASA) PO SCH (20:46)
[2020-12-25] MEDS: MELATONIN 3 MG TABLET PO PRN (20:47)
[2020-12-25] MEDS: GABAPENTIN 300 MG (NEURONTIN) CAP PO SCH (20:47)
[2020-12-25] MEDS: SENNA W/DOCUSATE (SENOKOT S) TABLET PO SCH (20:47)
[2020-12-25] MEDS: ZOLPIDEM 5 MG (AMBIEN) TAB PO PRN (20:48)
[2020-12-25] MEDS: amLODIPine 2.5MG (NORVASC) TAB PO SCH (20:48)
[2020-12-25] MEDS: polyethylene glycoL POWDER 17 GM (MIRALAX) PACK PO SCH (20:49)
[2020-12-25] MEDS: HYDROcodone/APAP 7.5 MG/325 MG (LORTAB, LORCET PLUS) TABLET PO PRN (22:44)
[2020-12-26 05:45] LABS: BASOPHILS # (AUTO) 0.1 10^3/uL (0.0-0.1); BASOPHILS % (AUTO) 1 % (0-10); EOSINOPHILS # (AUTO) 0.5 10^3/uL (0.0-0.3); EOSINOPHILS % (AUTO) 7 % (0-10); HEMATOCRIT 39 % (40-54); HEMOGLOBIN 12.8 g/dL (13.3-17.7); LYMPHOCYTES # (AUTO) 0.9 10^3/uL (1.0-4.0); LYMPHOCYTES % (AUTO) 11 % (12-44); MEAN CORPUSCULAR HEMOGLOBIN 29 pg (25-34); MEAN CORPUSCULAR HGB CONC 33 g/dL (32-36); MEAN CORPUSCULAR VOLUME 87 fL (80-99); MEAN PLATELET VOLUME 9.8 fL (9.0-12.2); MONOCYTES # (AUTO) 0.6 10^3/uL (0.0-1.0); MONOCYTES % (AUTO) 8 % (0-12); NEUTROPHILS % (AUTO) 73 % (42-75); PLATELET COUNT 241 10^3/uL (130-400); WHITE BLOOD COUNT 8.2 10^3/uL (4.3-11.0)
[2020-12-26 06:10] LABS: ALBUMIN 3.3 GM/DL (3.2-4.5); CHLORIDE 101 MMOL/L (98-107); POTASSIUM 3.9 MMOL/L (3.6-5.0); SODIUM 136 MMOL/L (135-145)
[2020-12-26 06:11] LABS: CALCIUM 9.4 MG/DL (8.5-10.1)
[2020-12-26 06:12] LABS: GLUCOSE 133 MG/DL (70-105); TOTAL PROTEIN 7.4 GM/DL (6.4-8.2)
[2020-12-26 06:13] LABS: CARBON DIOXIDE 27 MMOL/L (21-32)
[2020-12-26 06:14] LABS: BILIRUBIN,TOTAL 0.8 MG/DL (0.1-1.0)
[2020-12-26 06:15] LABS: ALKALINE PHOSPHATASE 176 U/L (40-136)
[2020-12-26] MEDS: BETHANECHOL 25 MG (URECHOLINE) TAB PO SCH ×4 (06:15→21:28)
[2020-12-26 06:16] LABS: CREATININE SERUM 0.79 MG/DL (0.60-1.30); GFR ESTIMATED > 60
[2020-12-26 06:17] LABS: BUN/CREATININE RATIO 19
[2020-12-26 06:19] LABS: ALANINE AMINOTRANSFERASE 56 U/L (0-55)
--- NOTE | 2020-12-26 07:10 | PM&R Progress Note ---
Subjective HPI/CC On Admission Date Seen by Provider: December 26, 2020 Time Seen by Provider: 08:30 Subjective/Events-last exam 12/26/20: Pt reported that he was going to leave AMA if he didnt get pain medication after a week post-op that will not be initiated due to high risk for dependency Requiring in and out cath Elevated liver enzymes is not a new thing per patient so changed pain med to w/o APAP Accused me of causing his insomnia due to not giving him IV pain meds which is not indicated [address] Colmenares will see Im for his toenails Changed Hydrocodone because it has Tylenol to Oxycodone Review of Systems General: Fatigue, Malaise Neurological: Weakness Objective Exam Vital Signs Vital Signs Date Time Temp Pulse Resp B/P (MAP) Pulse Ox O2 Delivery O2 Flow Rate FiO2 12/26/20 20:40 Room Air 12/26/20 19:59 37.0 81 16 172/85 (114) 93 Capillary Refill : General Appearance: No Apparent Distress, WD/WN, Chronically ill HEENT: PERRL/EOMI, Normal ENT Inspection, Pharynx Normal Neck: Full Range of Motion, Normal Inspection, Non Tender, Supple, Carotid Bruit Respiratory: Chest Non Tender, Lungs Clear, Normal Breath Sounds, No Accessory Muscle Use, No Respiratory Distress Cardiovascular: Regular Rate, Rhythm, No Edema, No Gallop, No JVD, No Murmur, Normal Peripheral Pulses Gastrointestinal: Normal Bowel Sounds, No Organomegaly, No Pulsatile Mass, Non Tender, Soft Back: Normal Inspection, No CVA Tenderness, No Vertebral Tenderness Extremity: Normal Capillary Refill, Normal Inspection, Normal Range of Motion, Non Tender, No Calf Tenderness, No Pedal Edema Neurologic/Psychiatric: Alert, Oriented x3, No Motor/Sensory Deficits, Normal Mood/Affect, Abnormal Gait, Depressed Affect, Motor Weakness (left leg) Skin: Normal Color, Warm/Dry Lymphatic: No Adenopathy Results/Procedures Lab Patient resulted labs reviewed. FIM Transfers Therapy Code Descriptions/Definitions Functional [place] Measure: 0=Not Assessed/NA 4=Minimal Assistance 1=Total Assistance 5=Supervision or Setup 2=Maximal Assistance 6=Modified [place] 3=Moderate Assistance 7=Complete IndependenceSCALE: Activities may be completed with or without assistive devices. 5-Rdrtzelinj-padhjab completes the activity by him/herself with no assistance from a helper. 5-Set-up or Clean-up Assistance-helper sets up or cleans up; patient completes activity. [place] assists only prior to or following the activity. 4-Supervision or Touching Assistance-helper provides verbal cues and/or touching/steadying and/or contact guard assistance as patient completes activity. Assistance may be provided throughout the activity or intermittently. 3-Partial/Moderate Assistance-helper does LESS THAN HALF the effort. [place] lifts, holds or supports trunk or limbs, but provides less than half the effort. 2-Substantial/Maximal Assistance-helper does MORE THAN HALF the effort. [place] lifts or holds trunk or limbs and provides more than half the effort. 7-Xcbreentc-jtbayk does ALL the effort. Patient does none of the effort to complete the activity. Or, the assistance of 2 or more helpers is required for the patient to complete the activity. If activity was not attempted, code reason: 7-Patient Refused. 9-Not Applicable-not attempted and the patient did not perform the activity before the current illness, exacerbation or injury. 10-Not Attempted due to Environmental Limitations-(lack of equipment, weather restraints, etc.). 88-Not Attempted due to Medical Conditions or Safety Concerns. Assessment/Plan Assessment and Plan Assess & Plan/Chief Complaint Assessment: s/p left hip replacement Acute urinary retention requiring in/out caths HTN HLP DM Edema Leukemia/Lymphoma hx Resistant to medical management Plan: Urology consult Bladder meds Monitor pain IRF protocol December AMA 12/26/20: Monitor closely Pain control Limit LFT's (1) Status post left hip replacement (2) Hypertension (3) Hyperlipemia (4) Edema (5) Diabetes HAIM BERNAL DO December 26, 2020 07:10
[2020-12-26 08:00] VITALS: BP 143/81
--- NOTE | 2020-12-26 08:41 | Physical Therapy Evaluation ---
PT Evaluation-General Medical Diagnosis Admission Date December 25, 2020 at 16:35 Medical Diagnosis: left SAMREEN Onset Date: December 19, 2020 Therapy Diagnosis Therapy Diagnosis: impaired mobility, strength, endurance Precautions Precautions/Isolations: Fall Prevention, Standard Precautions Weight Bear Status Left Lower Extremity: Left Weight Bearing/Tolerated Referral Physician: Myra Osman DO Reason for Referral: Evaluation/Treatment Medical History Pertinent Medical History: DM Additional Medical History Past Medical History Surgeries: Orthopedic Currently Using CPAP: No (stopped using 2 years ago; has machine at home) Currently Using BIPAP: No Cardiac: Chronic Edema/Swelling, High Cholesterol, Hypertension Reproductive: No Musculoskeletal: Arthritis Endocrine: Diabetes, Non-Insulin dep Hearing Impairment: Hard of Hearing Cancer: Leukemia, Lymphoma Did You Recieve Any Treatments: Yes What Type of Treatment Did You: Chemotherapy, Radiation, Surgical Intervention Psychosocial: Depression Reviewed History: Yes Social History Home: Multilevel (patient states he doesn't need to go upstairs) Current Living Status: Spouse Entry Into Home: Stairs With Railing PT Steps Into Home: 1 Prior Prior Level of Function SCALE: Activities may be completed with or without assistive devices. 2-Narepjzygd-dstxemm completes the activity by him/herself with no assistance from a helper. 5-Set-up or Clean-up Assistance-helper sets up or cleans up; patient completes activity. Lima assists only prior to or following the activity. 4-Supervision or Touching Assistance-helper provides verbal cues and/or touching/steadying and/or contact guard assistance as patient completes activity. Assistance may be provided throughout the activity or intermittently. 3-Partial/Moderate Assistance-helper does LESS THAN HALF the effort. Lima lifts, holds or supports trunk or limbs, but provides less than half the effort. 2-Substantial/Maximal Assistance-helper does MORE THAN HALF the effort. Lima lifts or holds trunk or limbs and provides more than half the effort. 4-Yslkutcpp-tdrosi does ALL the effort. Patient does none of the effort to complete the activity. Or, the assistance of 2 or more helpers is required for the patient to complete the activity. If activity was not attempted, code reason: 7-Patient Refused. 9-Not Applicable-not attempted and the patient did not perform the activity before the current illness, exacerbation or injury. 10-Not Attempted due to Environmental Limitations-(lack of equipment, weather restraints, etc.). 88-Not Attempted due to Medical Conditions or Safety Concerns. Bed Mobility: 6 Transfers (B,C,W/C): 6 Gait: 6 Stairs: 6 Indoor Mobility (Ambulation): Independent Stairs: Independent Prior Device Use: SPC PT Evaluation-Current Subjective Patient in recliner pre tx, agrees to PT, has 8/10 pain in left hip. Pt/Family Goals to be independent at home Objective Patient Orientation: Person, Place, Situation Sensory Vision: Functional Hearing: Functional Sensation Right Lower Extremit: Intact Sensation Left Lower Extremity: Intact Transfers Roll Left & Right (QC): 6 Sit to Lying (QC): 6 Lying to Sitting/Side of Bed(Q: 6 Sit to Stand (QC): 4 Chair/Pov-qu-Euppz Xfer(QC): 4 Toilet Transfer (QC): 4 Car Transfer (QC): 4 Patient performs bed mobility and supine <-> sit with independence, sit <-> stand and transfers with CGA, car transfer CGA. Cues for safety and positioning. Gait Does the Patient Walk?: Yes Mode of Locomotion: Walk Anticipated Mode of Locomotion: Walk Walk 10 feet (QC): 4 Walk 50 ft with 2 Turns(QC): 4 Walk 150 ft (QC): 4 Walking 10ft/uneven surface-QC: 4 Distance: 120', 150' Gait Assistive Device: FWW Comments/Gait Description Patient can ambulate 150' with a rolling walker with CGA (including 50' with at least 2 turns of 90 degrees and 10' over an uneven surface). Gait is antalgic, step through less with right leg, poor foot clearance on the left side. Wheelchair Training Does the Pt Use a Wheelchair?: No Wheel 50 ft with 2 turns (QC): 9 Wheel 150 ft (QC): 9 Stairs #of Steps: 1 1 Step (curb) (QC): 4 4 Steps (QC): 88 12 Steps (QC): 88 Walking Assistive Device: Walker Patient can go up and down 1 step using a rolling walker with CGA, cues for foot placement, patient is impulsive with this and doesn't wait for cues. Balance Sitting Static: Normal Sitting Dynamic: Normal Standing Static: Good Standing Dynamic: Fair Picking up an Object (QC): 88 Treatment LLE supine hip protocol x20 (AP, QS, GS, SAQ, SLR, HS, hip abd/add) Assessment/Needs Patient in recliner post tx with nurse call, phone, tray, all needs met. Patient is somewhat impulsive with general mobility, turns to sit quickly and too soon, often doesn't listen to safety cues. Rehab Potential: Fair PT Short Term Goals Short Term Goals Time Frame: January 02, 2021 Roll Left & Right: 6 Sit to lyin Lying to sitting on side of be: 6 Sit to stand: 4 Chair/war-vo-omkaz transfer: 4 Walk 10 feet: 4 Walk 50 feet with two turns: 4 Walk 150 feet: 4 PT Solar Installation Helper Goals Solar Installation Helper Goals PT Retirement Goals Time Frame: Jan 16, 2021 Roll Left & Right (QC): 6 Sit to Lying (QC): 6 Lying-Sitting on Side/Bed(QC): 6 Sit to Stand (QC): 6 Chair/Bhh-uk-Osoav Xfer(QC): 5 Toilet Transfer (QC): 5 Car Transfer (QC): 5 Does the Patient Walk: Yes Walk 10 feet (QC): 5 Walk 50ft with 2 Turns (QC): 5 Walk 150 ft (QC): 5 Walking 10ft on Uneven Surface: 5 1 Step (curb) (QC): 5 4 Steps (QC): 5 12 Steps (QC): 88 Picking up an Object (QC): 88 Wheel 50 feet with 2 turns (QC: 9 Wheel 150 feet: 9 PT Plan Problem List Problem List: Activity Tolerance, Functional Strength, Safety, Balance, Gait, T ransfer, Bed Mobility, ROM Treatment/Plan Treatment Plan: Continue Plan of Care Treatment Plan: Bed Mobility, Education, Functional Activity Delma, Functional Strength, Group Therapy, Gait, Safety, Therapeutic Exercise, Transfers Treatment Duration: Jan 16, 2021 Frequency: At least 5 of 7 days/Wk (IRF) Estimated Hrs Per Day: 1.5 hours per day Patient and/or Family Agrees t: Yes Safety Risks/Education Patient Education: Gait Training, Transfer Techniques, Steps, Reviewed Precautions, Correct Positioning, Safety Issues Teaching Recipient: Patient Teaching Methods: Demonstration, Discussion Response to Teaching: Reinforcement Needed Discharge Recommendations Plan Patient will perform bed mobility and transfer training, balance and endurance training, functional strengthening, stair training, gait training, and education, to improve functional mobility and independence at home. Therapy Discharge Recommendati: Scheduled Assistance, Home & Family, Post Acute PT Time/GCodes Time In: 0800 Time Out: 0845 Total Billed Treatment Time: 45 Total Billed Treatment 1 visit EVM 15' FA 15' EX 15' BALWINDER EDDY PT December 26, 2020 08:41
[2020-12-26] MEDS: meTOprolol TARTRATE 50 MG (LOPRESSOR) TAB PO SCH (08:51)
[2020-12-26] MEDS: TAMSULOSIN 0.4 MG (FLOMAX) CAP PO SCH ×2 (08:51→21:28)
[2020-12-26] MEDS: FUROSEMIDE 20 MG (LASIX) TAB PO SCH (08:51)
[2020-12-26] MEDS: lisINopril 20 MG (PRINIVIL) TABLET PO SCH (08:51)
[2020-12-26] MEDS: PHENAZOPYRIDINE 100 MG (PYRIDIUM) TABLET PO SCH ×3 (08:51→18:19)
[2020-12-26] MEDS: ASPIRIN 81 MG CHEW (CHILDREN'S ASA) PO SCH ×2 (08:52→21:28)
[2020-12-26] MEDS: HYDROcodone/APAP 7.5 MG/325 MG (LORTAB, LORCET PLUS) TABLET PO PRN (08:52)
[2020-12-26] MEDS: metFORMIN 500 MG (GLUCOPHAGE) TAB PO SCH ×2 (08:52→17:25)
[2020-12-26] MEDS: SENNA W/DOCUSATE (SENOKOT S) TABLET PO SCH ×2 (08:52→19:44)
[2020-12-26] MEDS: DOCUSATE SODIUM 100 MG (COLACE) CAP PO SCH ×2 (08:52→19:45)
[2020-12-26] MEDS: polyethylene glycoL POWDER 17 GM (MIRALAX) PACK PO SCH ×2 (08:53→19:44)
--- NOTE | 2020-12-26 10:32 | Occupational Therapy Eval ---
OT Evaluation-General/PLF Medical Diagnosis Admission Date December 25, 2020 at 16:35 Medical Diagnosis: left SAMREEN Onset Date: December 19, 2020 Therapy Diagnosis Therapy Diagnosis: decreased ADL status Precautions Precautions/Isolations: Fall Prevention, Standard Precautions Referral Physician: Myra Osman DO Referral Reason: Evaluation/Treatment Medical History Pertinent Medical History: DM Additional Medical History Chronic edema/swelling, high cholesterol, HTN, arthritis, DM, [place], leukemia, lymphoma, depression Current History s/p L SAMREEN 12/19/20 after conservative treatments failed. Transfer to [facility] 12/09 02/28 for continued medication management and skilled therapy. Social History Home: Multilevel (patient states he doesn't need to go upstairs) Current Living Status: Spouse Entry Into Home: Stairs With Railing Steps Into Home: 1 ADL-Prior Level of Function SCALE: Activities may be completed with or without assistive devices. 2-Icxykxklov-xattpiv completes the activity by him/herself with no assistance from a helper. 5-Set-up or Clean-up Assistance-helper sets up or cleans up; patient completes activity. Enloe assists only prior to or following the activity. 4-Supervision or Touching Assistance-helper provides verbal cues and/or touching/steadying and/or contact guard assistance as patient completes activity. Assistance may be provided throughout the activity or intermittently. 3-Partial/Moderate Assistance-helper does LESS THAN HALF the effort. Enloe lifts, holds or supports trunk or limbs, but provides less than half the effort. 2-Substantial/Maximal Assistance-helper does MORE THAN HALF the effort. Enloe lifts or holds trunk or limbs and provides more than half the effort. 1-Xeejjlyib-qgocvs does ALL the effort. Patient does none of the effort to complete the activity. Or, the assistance of 2 or more helpers is required for the patient to complete the activity. If activity was not attempted, code reason: 7-Patient Refused. 9-Not Applicable-not attempted and the patient did not perform the activity before the current illness, exacerbation or injury. 10-Not Attempted due to Environmental Limitations-(lack of equipment, weather restraints, etc.). 88-Not Attempted due to Medical Conditions or Safety Concerns. ADL PLOF Comments Pt reports IND with ADLs at PLOF, sometimes requires assistance with LLE sock but able to manage with boot hooks. Self Care: Independent Functional Cognition: Independent OT Current Status Subjective Pt seated in recliner, agreeable to OT evaluation and tx. Reports 03/20 "ache" in L hip Pain Numeric Pain Scale: 8 Location: Left Location Body Site: Hip Pain Description: Ache Mental Status/Objective Patient Orientation: Person, Place, Time, Situation Current Glasses/Contacts: Yes Hearing Aids: No Dentures/Partials: Yes Hand Dominance: Right Upper Extremity ROM WFL, BUE shoulder flexion to approx 150 degrees Upper Extremity Coordination WFL Upper Extremity Sensation WFL, pt denies tingling/numbness Upper Extremity Strength WFL, BUE grossly 4+/5 ADL-Treatment Eating (QC): 6 (Per pt report) Oral Hygiene (QC): 4 (CGA standing at sink) Shower/Bathe Self (QC): 3 (Min A washing/drying LLE lower leg/foot) Upper Body Dressing (QC): 5 (set up) Lower Body Dressing (QC): 3 (Min A with threading LLE into pants, pt able to thread RLE and manage pant hike with CGA.) On/Off Footwear (QC): 3 (Pt able to don/doff gripper socks using AE. Assist with donning/doffing TEDhose.) Toileting Hygiene (QC): 4 (Based on clincial judgement, pt able to complete clothing management and hygiene with [facility]) Other Treatments Pt seated in recliner, OT educated pt on purpose and benefit of OT he verbalized understanding. Pt provided information about PLOF and home set up, and participated in UE screen. Pt used FWW to ambulate into bathroom and onto [facility]. Pt doffed clothing, then completed shower and dried off (assist LLE lower leg and foot in order to maintain hip precaution). Pt donned clothes at [place], using AE (pt had previously used AE and required no cues in order to correctly use equipment). Pt stood at sink for oral care then transferred to [facility] and OT donned TEDhose for pt. After seated rest break, pt used FWW to perform functional mobility to therapy gym. In order to increase BUE Strength and activity tolerance, pt completed fine motor pegboard task, placing/removing x100, 1" pegs from board, alternating hands, 2lb wrist cuff BUEs. Pt returned to room, CGA using FWW. Post tx, pt seated in recliner, call light in reach and all needs met. Education OT Patient Education: Correct positioning, Energy conservation, Exercise program, Modified ADL techniques, Progress toward Goal/Update tx plan, Purpose of tx/functional activities, Rehab process, Safety issues Teaching Recipient: Patient Teaching Methods: Discussion Response to Teaching: Verbalize Understanding OT Short Term Goals Short Term Goals Time Frame: January 03, 2021 Shower/bathe self: 4 Lower body dressin OT Care Home Goals Supervisor [employer] Goals Time Frame: Jan 19, 2021 Eating (QC): 6 Oral Hygiene (QC): 6 Toileting Hygiene (QC): 6 Shower/Bathe Self (QC): 6 Upper Body Dressing (QC): 6 Lower Body Dressing (QC): 6 On/Off Footwear (QC): 6 Additional Goals: 1-Demonstrate ADL Tasks, 2-Verbalize Understanding, 3- ImproveStrength/Delma 1=Demonstrate adherence to instructed precautions during ADL tasks. 2=Patient will verbalize/demonstrate understanding of assistive devices/modifications for ADL. 3=Patient will improve strength/tolerance for activity to enable patient to perform ADL's. OT Education/Plan Problem List/Assessment Assessment: Decreased Activ Tolerance, Decreased UE Strength, Impaired Funct Balance, Impaired I ADL's, Impaired Self-Care Skills Discharge Recommendations Plan/Recommendations: Continue POC Treatment Plan/Plan of Care Patient would benefit from OT for education, treatment and training to promote independence in ADL's, mobility, safety and/or upper extremity function for ADL's. Plan of Care: ADL Retraining, Functional Mobility, Group Exercise/Act as Ind, UE Funct Exercise/Act Treatment Duration: Jan 19, 2021 Frequency: At least 5 of 7 days/Wk (IRF) Estimated Hrs Per Day: 1.5 hours per day Rehab Potential: Good Time/GCodes Start Time: 09:15 Stop Time: 10:30 Total Time Billed (hr/min): 75 Billed Treatment Time 1, EVM (10'), ADL 3 (50'), FA (15') RASHMI DON OT December 26, 2020 10:32
--- NOTE | 2020-12-26 11:00 | CONSULTATION REPORT ---
DATE OF SERVICE: 12/26/2020 ATTENDING PHYSICIAN: Dr. Osman. SUMMARY: After reviewing the patient's record and interviewing him, this is a 75-year-old man transferred to rehabilitation after hip surgery in [place]. He has been having trouble urinating now mostly emptying at this time, necessitating some straight catheterization, but getting better. He was started by Dr. Osman on Flomax b.i.d. and Urecholine 25 q.i.d. before meals and at bedtime. He is not the greatest compliant the patient, however, I had no problem with him in my interview. He denies significant voiding symptoms at home prior to surgery and he is on no medication for prostate or bladder except above-mentioned. He has history of lymphoma, treated with chemo. IMPRESSION: Urinary retention, BPH and neurogenic bladder. PLAN: We will do a bladder scan postvoid residual daily and p.r.n. and straight cath over 500 since he does not want to be catheterized too often unless he is uncomfortable and plan was fully explained to the patient. Later on after discharge, we will work him up for BPH problems. Job ID: [id number] DocumentID: [id number] Dictated Date: 12/26/2020 09:38:14 Knot Tying Operator Date: 12/26/2020 10:59:27 Dictated By: LILY MORALES MD
--- NOTE | 2020-12-26 11:30 | Podiatry Progress Note ---
Standard Progress Note Progress Notes/Assess & Plan Date Seen by a Provider: December 26, 2020 Time Seen by a Provider: 11:29 Progress/Assessment & Plan Consultation dictated, foot care given. Final Diagnosis Onychomycosis, Neuropathy CLAUS REYES DPM December 26, 2020 11:30
--- NOTE | 2020-12-26 11:59 | CONSULTATION REPORT ---
DATE OF SERVICE: 12/26/2020 REASON FOR CONSULTATION: This 75-year-old male who has been admitted to [facility] for rehabilitation after hip surgery. He has difficulty reaching for and caring for his feet and his toenails have been neglected for quite some time. The toenails are very problematic with shoe gear and ambulation. PAST MEDICAL HISTORY: Includes the above-mentioned hip surgery on the left. He has chronic swelling, edema, high cholesterol, hypertension, arthritis, non-insulin dependent diabetes, hard of hearing, leukemia, lymphoma, and depression. ALLERGIES: The patient is allergic to DIPHENHYDRAMINE. SOCIAL HISTORY: He is retired and is . Never smoker and is hoping to get to the point, where he can return to home in independent living with his . PHYSICAL EXAMINATION: LOWER EXTREMITY: The patient has a 2/4 dorsalis pedis pulse, 0/4 posterior tibial pulse bilaterally. Cap refill time is less than 3 seconds. NEUROLOGIC: The patient has intact protective sensation with 10 gram monofilament wire examination bilaterally. Diminished vibratory sensation bilaterally. Deep tendon reflexes are also diminished to the Achilles tendon bilaterally. DERMATOLOGIC: The patient has thick yellow dystrophic toenails with subungual debris associated with all 10 toenails. No open lesions are identified to the forefoot bilaterally. MUSCULOSKELETAL: The patient has 5/5 muscle strength to the four major quadrants of the foot bilaterally. ASSESSMENT: 1. Onychomycosis. 2. Diabetic neuropathy. PLAN: Various treatment options were discussed with the patient today. We discussed diabetic foot care in general, the need to wear appropriate shoe gear to help protect his feet. We also debrided the toenail today mechanically. Betadine applied R1, 2, 3, 4 and 5, L1, 2, 3, 4 and 5 digits. We briefly discussed oral and topical antifungal medications, but will have further conversation once he is discharged and able to show up in the office for further consultation. We also encourage appropriate shoe gear. We will see the patient back upon discharge. Job ID: [id number] DocumentID: [id number] Dictated Date: 12/26/2020 11:34:24 Youth Specialist Date: 12/26/2020 11:58:52 Dictated By: DORIS BOJORQUEZ
--- NOTE | 2020-12-26 15:15 | ST Cognitive Linguistic Eval ---
Speech Evaluation-General Medical Diagnosis left SAMREEN Onset Date: December 19, 2020 Therapy Diagnosis Therapy Diagnosis: Cognitive-communication Referral Referring Physician: Dr. Osman Medical History Pertinent Medical History: DM Reviewed History: Yes Social History Current Living Status: Spouse Speech PLF-Current Status Prior Level of Function Patient lives in his own home with his where he was independent for most of his daily activities. Language Eval: Auditory Comprehends Simple Yes/No Ques: Functional Indent/Objects Multiple Cook: Functional Ident/Pics in Multiple Cook: Functional Follows 1-Step Commands: Functional Follows Complex Directions: Functional Follows General Conversations: Functional Language Eval: Verbal Language Completes Spontaneous Greeting: Functional Produces Auto, Serial Info: Functional Imitates Simple Words/Phrases: Functional Word Finding: Functional Requests Basic Needs: Functional States Basic Personal Info: Functional Expresses Complex Ideas: Functional Objective Cognitive Domain Attention: WNL Memory: WNL Problem Solving: Functional Executive Functions: WNL Visuospatial Skills: WNL Composite Severity Rating: WNL Clock Drawing Severity Rating: WNL Objective Formal/Standardized Tests [facility] Status ([facility]) Results 27/30, within normal range of function Oral Motor/Speech Production Within Normal Limits Impression Patient is a pleasant 75 y/o male who was admitted to the ARU s/p left hip replacement. Patient was given the UMS at bedside with a score of 27/30 obtained. This score is within normal range of function and does not indicate a need for further ST services. Speech Patient Assess Expression of Ideas/Wants: Expression (4) Understanding Verbal Content: Understands (4) Brief Interview-Mental Status: Yes Repetition of Three Words: Three (3) Temporal Orientation: Year: Correct (3) Temporal Orientation: Month: Accurate within 5 days(2) Temporal Orientation: Day: Correct (1) Recall : Wear to say "Sock": Yes, no cue required (2) Recall : Color: Yes, no cue required (2) Recall : Bed: Yes, no cue required (2) Memory/Recall Ability: Current season, Location of own room, That he or she is in a hsp/hsp unit Speech-Plan Patient/Family Goals Patient/Family Goals: Patient plans on returning to his home where he lives with his . Treatment Plan Speech Therapy Treatment Plan: Discontinue ST Treatment Duration: December 26, 2020 Frequency: 1 time per week Estimated Hrs Per Day: .5 hour per day Rehab Potential: Good Barriers to Learning: None identified Pt/Family Agrees to Plan: Yes Safety Risks/Education Teaching Recipient: Patient Teaching Methods: Discussion Response to Teaching: Verbalize Understanding Education Topics Provided: Safety within his room, using the call light when needing assistance Time Speech Therapy Time In: 14:30 Speech Therapy Time Out: 15:00 Total Billed Time: 30 Billed Treatment Time 1, DAVE ALVAREZ [address] December 26, 2020 15:15
--- NOTE | 2020-12-26 15:30 | Physical Therapy Daily Note ---
PT Daily Note-Current Subjective Patient in bed pre tx, agrees to PT, has 8/10 pain in left hip. Appearance Patient in recliner post tx with nurse call, phone, tray, all needs met. Mental Status Patient Orientation: Person, Place, Situation Transfers SCALE: Activities may be completed with or without assistive devices. 4-Hltvhzksdi-uoybmiv completes the activity by him/herself with no assistance from a helper. 5-Set-up or Clean-up Assistance-helper sets up or cleans up; patient completes activity. [place] assists only prior to or following the activity. 4-Supervision or Touching Assistance-helper provides verbal cues and/or touching /steadying and/or contact guard assistance as patient completes activity. Assistance may be provided throughout the activity or intermittently. 3-Partial/Moderate Assistance-helper does LESS THAN HALF the effort. [place] lifts, holds or supports trunk or limbs, but provides less than half the effort. 2-Substantial/Maximal Assistance-helper does MORE THAN HALF the effort. [place] lifts or holds trunk or limbs and provides more than half the effort. 6-Fpqjyftih-nhqolk does ALL the effort. Patient does none of the effort to complete the activity. Or, the assistance of 2 or more helpers is required for the patient to complete the activity. If activity was not attempted, code reason: 7-Patient Refused. 9-Not Applicable-not attempted and the patient did not perform the activity before the current illness, exacerbation or injury. 10-Not Attempted due to Environmental Limitations-(lack of equipment, weather restraints, etc.). 88-Not Attempted due to Medical Conditions or Safety Concerns. Roll Left & Right (QC): 6 Lying to Sitting/Side of Bed(Q: 6 Sit to Stand (QC): 4 Chair/Egy-ld-Tmftk Xfer(QC): 4 SBA for sit to stand and transfers Weight Bearing Left Lower Extremity: Left Weight Bearing/Tolerated Gait Training Distance: 150'x2 Walk 10 feet (QC): 4 Walk 50 ft with 2 Turns(QC): 4 Walk 150 ft (QC): 4 Gait Persons Needed: 1 Gait Assistive Device: FWW SBA, slightly stiff left leg, left knee stays slightly flexed, slow ambulation Exercises Standing: Hip Abduction, Hamstring curls, Heel/toe raises, Mini squats Standing Reps: 15 Treatments bed mobility and transfers, ambulation, LE exercise Assessment Current Status: Fair Progress good progress PT Short Term Goals Short Term Goals Time Frame: January 02, 2021 Roll Left & Right: 6 Sit to lyin Lying to sitting on side of be: 6 Sit to stand: 4 Chair/bwd-at-hdtfo transfer: 4 Walk 10 feet: 4 Walk 50 feet with two turns: 4 Walk 150 feet: 4 PT Fpc Goals Fpc Goals PT Plastic Extruding Machine Operator Goals Time Frame: Jan 16, 2021 Roll Left & Right (QC): 6 Sit to Lying (QC): 6 Lying-Sitting on Side/Bed(QC): 6 Sit to Stand (QC): 6 Chair/Yje-sc-Lgxjs Xfer(QC): 5 Toilet Transfer (QC): 5 Car Transfer (QC): 5 Does the Patient Walk: Yes Walk 10 feet (QC): 5 Walk 50ft with 2 Turns (QC): 5 Walk 150 ft (QC): 5 Walking 10ft on Uneven Surface: 5 1 Step (curb) (QC): 5 4 Steps (QC): 5 12 Steps (QC): 88 Picking up an Object (QC): 88 Wheel 50 feet with 2 turns (QC: 9 Wheel 150 feet: 9 PT Plan Problem List Problem List: Activity Tolerance, Functional Strength, Safety, Balance, Gait, Transfer, Bed Mobility, ROM Treatment/Plan Treatment Plan: Continue Plan of Care Treatment Plan: Bed Mobility, Education, Functional Activity Delma, Functional Strength, Group Therapy, Gait, Safety, Therapeutic Exercise, Transfers Treatment Duration: Jan 16, 2021 Frequency: At least 5 of 7 days/Wk (IRF) Estimated Hrs Per Day: 1.5 hours per day Patient and/or Family Agrees t: Yes Safety Risks/Education Patient Education: Gait Training, Transfer Techniques, Correct Positioning, Safety Issues Teaching Recipient: Patient Teaching Methods: Demonstration, Discussion Response to Teaching: Reinforcement Needed Time/GCodes Time In: 1500 Time Out: 1530 Total Billed Treatment Time: 30 Total Billed Treatment 1 visit EX 15' GT 15' BALWINDER EDDY PT December 26, 2020 15:30
[2020-12-26] MEDS ORDERED: BACLOFEN 10 MG (LIORESAL) TAB PO PRN (17:30)
[2020-12-26 19:59] VITALS: BP 172/85
[2020-12-26] MEDS: amLODIPine 2.5MG (NORVASC) TAB PO SCH (21:28)
[2020-12-26] MEDS: MELATONIN 3 MG TABLET PO PRN (21:28)
[2020-12-26] MEDS: ZOLPIDEM 5 MG (AMBIEN) TAB PO PRN (21:28)
[2020-12-26] MEDS: GABAPENTIN 300 MG (NEURONTIN) CAP PO SCH (21:28)
[2020-12-27] MEDS: BETHANECHOL 25 MG (URECHOLINE) TAB PO SCH ×2 (05:45→11:40)
[2020-12-27 08:00] VITALS: BP 141/77
[2020-12-27] MEDS: metFORMIN 500 MG (GLUCOPHAGE) TAB PO SCH ×2 (09:00→17:25)
[2020-12-27] MEDS: PHENAZOPYRIDINE 100 MG (PYRIDIUM) TABLET PO SCH ×3 (09:00→18:09)
[2020-12-27] MEDS: lisINopril 20 MG (PRINIVIL) TABLET PO SCH (09:00)
[2020-12-27] MEDS: TAMSULOSIN 0.4 MG (FLOMAX) CAP PO SCH ×2 (09:00→20:57)
[2020-12-27] MEDS: FUROSEMIDE 20 MG (LASIX) TAB PO SCH (09:00)
[2020-12-27] MEDS: meTOprolol TARTRATE 50 MG (LOPRESSOR) TAB PO SCH (09:00)
[2020-12-27] MEDS: ASPIRIN 81 MG CHEW (CHILDREN'S ASA) PO SCH ×2 (09:00→20:57)
[2020-12-27] MEDS: polyethylene glycoL POWDER 17 GM (MIRALAX) PACK PO SCH ×2 (09:00→21:02)
[2020-12-27] MEDS: SENNA W/DOCUSATE (SENOKOT S) TABLET PO SCH ×2 (09:01→21:02)
[2020-12-27] MEDS: DOCUSATE SODIUM 100 MG (COLACE) CAP PO SCH ×2 (09:01→21:02)
--- NOTE | 2020-12-27 09:03 | Individualized Plan of Care ---
Individualized Plan of Care Rehab Nursing IPOC Order Admission Date December 25, 2020 at 16:35 Current Orders Orders Admission Order(Inpt,Obs,Sdc) (12/25/20 13:31) Vital Signs: Per Unit Policy ( 00 (12/25/20 13:31) Shane Hammonds (12/25/20 13:31) Sequential Compression Device .admit (12/25/20 13:31) Solder Technician-Inpt Rehab Con (12/25/20 13:31) Rehab Nursing Orders-Ipoc (12/25/20 13:31) Physical Therapy Rehab Orders (12/25/20 13:31) Occupational Therapy Rehab Ord (12/25/20 13:31) Speech Therapy Rehab Orders (12/25/20:) Cbc With Automated Diff (12/26/20 06:00) Comprehensive Metabolic Panel (12/26/20 06:00) Precautions (Aru) (12/25/20 13:31) Rehab-Intensity Of Therapy (12/25/20 13:31) Initiate Admission Nursing Pro .admission (12/25/20 13:31) Acetaminophen Tablet/Caplet (Tylenol T (12/25/20 13:45) Alprazolam Tablet (Xanax Tablet) (12/25/20 13:45) Calcium Carbonate Chew Tablet (Antacid C (12/25/20 13:45) Docusate Sodium Capsule (Colace Capsule) (12/25/20 21:00) Docusate Sodium Capsule (Colace Capsule) (12/25/20 13:45) Bisacodyl Suppository (Dulcolax Supposit (12/25/20 13:45) Lactulose Oral Solution (Enulose Oral So (12/25/20 13:45) Na Phos/Na Biphos Enema (Fleet Enema Ivan (12/25/20 13:45) Guaifenesin/Codeine Syrup (Robitussin Ac (12/25/20 13:45) Hydrocodone/Apap 5/325 Tablet (Lortab 5 (12/25/20 13:45) Loperamide Tablet (Imodium Tablet) (12/25/20 13:45) Melatonin Tablet (Melatonin Tablet) (12/25/20 13:45) Polyethylene Glycol Powder Pkt (Miralax (12/25/20 21:00) Ondansetron Oral Dissolve Tab (Zofran (12/25/20 13:45) Senna S Tablet (Senokot S Tablet) (12/25/20 21:00) Admission Arrival Bed Request (12/25/20 16:52) Cho 60g/M 1snack (16-2000 Beto) (12/25/20 Dinner) Amlodipine Tablet (Norvasc Tablet) (12/25/20 21:00) Aspirin Chewable Tablet (Baby Aspirin Ch (12/25/20 21:00) Furosemide Tablet (Lasix Tablet) (12/26/20 09:00) Gabapentin Capsule/Tablet (Neurontin Cap (12/25/20 21:00) Hydrocodone/Apap 7.5/325 Tab (Lortab 7. (12/25/20 18:00) Lisinopril Tablet (Zestril Tablet) (12/26/20 09:00) Metformin Tablet (Glucophage Tablet) (12/25/20 18:00) Metoprolol Tartrate (Ir) Tab (Lopressor (12/26/20 09:00) (Nf) Zolpidem Tartrate (Ambien) (12/25/20 18:00) Zolpidem Tablet (Ambien Tablet) (12/25/20 18:30) Straight Cath (Urinary) (12/25/20 18:30) Tamsulosin Capsule (Flomax Capsule) (12/25/20 18:45) Bethanechol Tablet (Urecholine Tablet) (12/25/20 18:45) Phenazopyridine Tablet (Pyridium Tablet) (12/25/20 19:00) Consult Urology (12/25/20 18:37) Hydrocodone/Apap 7.5/325 Tab (Lortab 7. (12/25/20 19:00) Tramadol Tablet (Ultram Tablet) (12/25/20 19:15) Nursing Communication (Order) (12/26/20 07:18) Follow-Up Appointment (12/26/20 07:18) Consult Podiatry (12/26/20 09:03) Oxycodone Immediate Rel Tablet (Oxyir Ta (12/26/20 09:30) Bladder Scan-Straight Cath-Pos (12/26/20 09:39) Patient Visit (12/26/20 ) Speech Sound Lang Comp (12/26/20 ) Treat. Speech/Lang/Voice (12/26/20 ) Patient Visit (12/26/20 ) Pt Eval Moderate Complexity (12/26/20 ) Functional Activities, Ea 15 (12/26/20 ) Exercise Therap, Ea 15 Min (12/26/20 ) Gait Training, Ea 15 Min (12/26/20 ) Baclofen Tablet (Lioresal Tablet) (12/26/20 17:30) Finasteride Tablet (Proscar Tablet) (12/28/20 09:00) Patient Visit (12/27/20 ) Functional Activities, Ea 15 (12/27/20 ) Gait Training, Ea 15 Min (12/27/20 ) Exercise Therap, Ea 15 Min (12/27/20 ) Rehab Nursing Orders: Ongoing Assess. of Cognitive Status, Ongoing Assess. of Function Status, Bladder Management, Bladder Scan, Bladder Training, Bowel Management, Bowel Training, Disease Management & Educaiton, DVT Prophylaxis, Fall Prevention, Fluid/Electrolyte/Nutrition Mgmt, Infection Prevention, Medication Management & Education, Management of Risks & Complications, Management of Skin Intergrity, Nutrition Management, Pain Management, Patient/Family Support, Safety Management, Swallow Precautions Intensity of Therapy to be met Patient to be seen: Min.3h per day/5 of 7d PT IPOC Problem List: Activity Tolerance, Functional Strength, Safety, Balance, Gait, Transfer, Bed Mobility, ROM Treatment Plan: Continue Plan of Care Bed Mobility, Education, Functional Activity Delma, Functional Strength, Group Therapy, Gait, Safety, Therapeutic Exercise, Transfers Treatment Duration: Jan 16, 2021 Frequency: At least 5 of 7 days/Wk (IRF) Estimated Hrs Per Day: 1.5 hours per day OT IPOC Problems: Decreased Activ Tolerance, Decreased UE Strength, Impaired Funct Balance, Impaired I ADL's, Impaired Self-Care Skills OT Treatment, Training and Edu: Yes Plan of Care: ADL Retraining, Functional Mobility, Group Exercise/Act as Ind, UE Funct Exercise/Act Treatment Duration: Jan 19, 2021 Frequency: At least 5 of 7 days/Wk (IRF) Estimated Hrs Per Day: 1.[address] IPOC Speech Therapy Treatment Plan: Discontinue ST Treatment Duration: December 26, 2020 Frequency: 1 time per week Estimated Hrs Per Day: .5 hour per day Solder Technician/Case Mgmt Solder Technician/Case Managemen: Discharge Planning Dietitian/Lining Marker Dietitian/Lining Marker to monitor nutritional status and make changes and/or recommendations as needed and work with speech pathology on dietary upgrades as the occur. Physician IPOC Medical Issues being managed closely and that require the 24 hour availability of a physician: Recent hip replacement with recent spine surgery a few months prior now with urinary retention with h/o lymphoma and elevated LFT's and side effects from pain meds will need close physician supervision. Medical Issues: Bowel/Bladder Function, DVT Prophylaxis, Falls Precautions, Fluid/Electrolyte/Nutrition Balance, Infection Protection, Pain Management Brief Synthesis of Preadmission Screen, Post-Admission Evaluation, and Therapy Evaluations: PT OT will focus on regaining function of the left hip replacement leg and will monitor closely to help increase ADL's in order to return to independent living Medical Prognosis: Good Anticipated Length of Stay: 6 days HAIM BERNAL DO December 27, 2020 09:03
--- NOTE | 2020-12-27 09:03 | PM&R Progress Note ---
Subjective HPI/CC On Admission Date Seen by Provider: December 27, 2020 Time Seen by Provider: 09:15 Subjective/Events-last exam 12/27/20: No major issues Pain is doing well on Oxycodone Cystoscopy will be done by Dr. Thompson Urinary retention prompted the urology consultation and multiple meds started for bladder retention Discharge planned for Friday12/26/20: Pt reported that he was going to leave AMA if he didnt get pain medication after a week post-op that will not be initiated due to high risk for dependency Requiring in and out cath Elevated liver enzymes is not a new thing per patient so changed pain med to w/o APAP Accused me of causing his insomnia due to not giving him IV pain meds which is not indicated [address] Colmenares will see Im for his toenails Changed Hydrocodone because it has Tylenol to Oxycodone Review of Systems General: Fatigue, Malaise Genitourinary: Retention Musculoskeletal: back pain, leg pain Neurological: Weakness Objective Exam Vital Signs Vital Signs Date Time Temp Pulse Resp B/P (MAP) Pulse Ox O2 Delivery O2 Flow Rate FiO2 12/27/20 20:52 37.4 88 17 142/77 (98) 90 12/27/20 20:30 Room Air Capillary Refill : General Appearance: No Apparent Distress, WD/WN, Chronically ill HEENT: PERRL/EOMI, Normal ENT Inspection, Pharynx Normal Neck: Full Range of Motion, Normal Inspection, Non Tender, Supple, Carotid Bruit Respiratory: Chest Non Tender, Lungs Clear, Normal Breath Sounds, No Accessory Muscle Use, No Respiratory Distress Cardiovascular: Regular Rate, Rhythm, No Edema, No Gallop, No JVD, No Murmur, Normal Peripheral Pulses Gastrointestinal: Normal Bowel Sounds, No Organomegaly, No Pulsatile Mass, Non Tender, Soft Back: Normal Inspection, No CVA Tenderness, No Vertebral Tenderness Extremity: Normal Capillary Refill, Normal Inspection, Normal Range of Motion, Non Tender, No Calf Tenderness, No Pedal Edema Neurologic/Psychiatric: Alert, Oriented x3, No Motor/Sensory Deficits, Normal Mood/Affect, Abnormal Gait, Depressed Affect, Motor Weakness (left leg) Skin: Normal Color, Warm/Dry Lymphatic: No Adenopathy Results/Procedures Lab Patient resulted labs reviewed. FIM Transfers Therapy Code Descriptions/Definitions Functional [place] Measure: 0=Not Assessed/NA 4=Minimal Assistance 1=Total Assistance 5=Supervision or Setup 2=Maximal Assistance 6=Modified [place] 3=Moderate Assistance 7=Complete IndependenceSCALE: Activities may be completed with or without assistive devices. 4-Xjrcowxovp-bkzkgzi completes the activity by him/herself with no assistance from a helper. 5-Set-up or Clean-up Assistance-helper sets up or cleans up; patient completes activity. [place] assists only prior to or following the activity. 4-Supervision or Touching Assistance-helper provides verbal cues and/or touching/steadying and/or contact guard assistance as patient completes activity. Assistance may be provided throughout the activity or intermittently. 3-Partial/Moderate Assistance-helper does LESS THAN HALF the effort. [place] lifts, holds or supports trunk or limbs, but provides less than half the effort. 2-Substantial/Maximal Assistance-helper does MORE THAN HALF the effort. [place] lifts or holds trunk or limbs and provides more than half the effort. 0-Zrfbwfrtt-zwotlo does ALL the effort. Patient does none of the effort to complete the activity. Or, the assistance of 2 or more helpers is required for the patient to complete the activity. If activity was not attempted, code reason: 7-Patient Refused. 9-Not Applicable-not attempted and the patient did not perform the activity before the current illness, exacerbation or injury. 10-Not Attempted due to Environmental Limitations-(lack of equipment, weather restraints, etc.). 88-Not Attempted due to Medical Conditions or Safety Concerns. Roll Left to Right (QC): 6 Sit to Lying (QC): 6 Sit to Stand (QC): 4 Chair/Zib-zu-Oryad Xfer(QC): 4 Car Transfer (QC): 4 Gait Training Does the Patient Walk?: Yes Distance: 150'x2 Walk 10 feet (QC): 4 Walk 50 ft with 2 Turns(QC): 4 Walk 150 ft (QC): 4 Walking 10ft/uneven surface-QC: 4 Gait Persons Needed: 1 Gait Assistive Device: FWW Wheelchair Training Does the Pt Use a Wheelchair?: No Wheel 50 ft with 2 turns (QC): 9 Wheel 150 ft (QC): 9 Stair Training #of Steps: 1 1 Step (curb) (QC): 4 4 Steps (QC): 88 12 Steps (QC): 88 Balance Picking up an Object (QC): 88 ADL-Treatment Eating (QC): 6 (Per pt report) Oral Hygiene (QC): 4 (CGA standing at sink) Shower/Bathe Self (QC): 3 (Min A washing/drying LLE lower leg/foot) Upper Body Dressing (QC): 5 (set up) Lower Body Dressing (QC): 3 (Min A with threading LLE into pants, pt able to thread RLE and manage pant hike with CGA.) On/Off Footwear (QC): 3 (Pt able to don/doff gripper socks using AE. Assist with donning/doffing TEDhose.) Toileting Hygiene (QC): 4 (Based on clincial judgement, pt able to complete clothing management and hygiene with CGA) Assessment/Plan Assessment and Plan Assess & Plan/Chief Complaint Assessment: s/p left hip replacement Acute urinary retention requiring in/out caths HTN HLP DM Edema Leukemia/Lymphoma hx Resistant to medical management Plan: Urology consult Bladder meds Monitor pain IRF protocol December AMA 12/26/20: Monitor closely Pain control Limit LFT's 12/27/20: CYsto per Dr Thompson Bladder meds per Dr Thompson DC Friday (1) Status post left hip replacement (2) Hypertension (3) Hyperlipemia (4) Edema (5) Diabetes HAIM BERNAL DO December 27, 2020 09:03
--- NOTE | 2020-12-27 09:41 | Occupational Ther Daily Note ---
OT Current Status-Daily Note Subjective Pt laying in bed, agreeable to OT Tx. Pt reports pain 7/10 "ache" in L hip. Mental Status/Objective Patient Orientation: Person, Place, Time, Situation ADL-Treatment Therapy Code Descriptions/Definitions Functional [place] Measure: 0=Not Assessed/NA 4=Minimal Assistance 1=Total Assistance 5=Supervision or Setup 2=Maximal Assistance 6=Modified [place] 3=Moderate Assistance 7=Complete IndependenceSCALE: Activities may be completed with or without assistive devices. 8-Xsebrqxxeb-icnxunu completes the activity by him/herself with no assistance from a helper. 5-Set-up or Clean-up Assistance-helper sets up or cleans up; patient completes activity. [place] assists only prior to or following the activity. 4-Supervision or Touching Assistance-helper provides verbal cues and/or touching/steadying and/or contact guard assistance as patient completes activity. Assistance may be provided throughout the activity or intermittently. 3-Partial/Moderate Assistance-helper does LESS THAN HALF the effort. [place] lifts, holds or supports trunk or limbs, but provides less than half the effort. 2-Substantial/Maximal Assistance-helper does MORE THAN HALF the effort. [place] lifts or holds trunk or limbs and provides more than half the effort. 2-Nujtwnlxm-vkphnz does ALL the effort. Patient does none of the effort to complete the activity. Or, the assistance of 2 or more helpers is required for the patient to complete the activity. If activity was not attempted, code reason: 7-Patient Refused. 9-Not Applicable-not attempted and the patient did not perform the activity before the current illness, exacerbation or injury. 10-Not Attempted due to Environmental Limitations-(lack of equipment, weather restraints, etc.). 88-Not Attempted due to Medical Conditions or Safety Concerns. Other Treatment Pt laying in bed, agreeable to OT Tx. Pt transferred supine to sit EOB with SBA, then used FWW to perform functional mobility to therapy gym. OT tx with focus on increasing BUE Strength and activity tolerance to maximize LOF with functional activities. pt completed arm bike, x20 mins, min resistance. He then completed nut/bolt task, 2lb wrist cuff BUEs, x2 sets. Pt completed fine motor pegboard task, placing/removing x100 pegs from pegboard, 2lb wrist cuffs BUEs. In order to increase fine motor strength, pt removed beads from heavy resistance therputty, 2 lb wrist cuff BUEs. OT edcuated pt on theraband exercises, using moderate resistance theraband. Pt completed 5/5 exercises, x20 reps each. Pt completed functional kitchen tasks, using oenologist to locate items in lower cabinets, and reaching in upper cabinets wtih UEs while maintaining hip precautions. Pt returned to his room and transferred to bed. Post tx, pt laying in bed, call light in reach and all needs met. Education OT Patient Education: Correct positioning, Energy conservation, Exercise program, Modified ADL techniques, Progress toward Goal/Update tx plan, Purpose of tx/functional activities, Rehab process Teaching Recipient: Patient Teaching Methods: Discussion Response to Teaching: Verbalize Understanding OT Short Term Goals Short Term Goals Time Frame: January 03, 2021 Shower/bathe self: 4 Lower body dressin OT Chcf Goals Compliance Aide Goals Time Frame: Jan 19, 2021 Eating (QC): 6 Oral Hygiene (QC): 6 Toileting Hygiene (QC): 6 Shower/Bathe Self (QC): 6 Upper Body Dressing (QC): 6 Lower Body Dressing (QC): 6 On/Off Footwear (QC): 6 Additional Goals: 1-Demonstrate ADL Tasks, 2-Verbalize Understanding, 3- ImproveStrength/[place]ma 1=Demonstrate adherence to instructed precautions during ADL tasks. 2=Patient will verbalize/demonstrate understanding of assistive devices/modifications for ADL. 3=Patient will improve strength/tolerance for activity to enable patient to perform ADL's. OT Education/Plan Problem List/Assessment Assessment: Decreased Activ Tolerance, Impaired Funct Balance, Impaired I ADL's, Impaired Self-Care Skills Discharge Recommendations Plan/Recommendations: Continue POC Treatment Plan/Plan of Care Patient would benefit from OT for education, treatment and training to promote independence in ADL's, mobility, safety and/or upper extremity function for ADL's. Plan of Care: ADL Retraining, Functional Mobility, Group Exercise/Act as Ind, UE Funct Exercise/Act Treatment Duration: Jan 19, 2021 Frequency: At least 5 of 7 days/Wk (IRF) Estimated Hrs Per Day: 1.5 hours per day Rehab Potential: Good Time/GCodes Start Time: 09:15 Stop Time: 10:45 Total Time Billed (hr/min): 90 Billed Treatment Time 1, EX 2 (35'), FA 4 (48) RASHMI DON OT December 27, 2020 09:41
--- NOTE | 2020-12-27 11:34 | Progress Note - Urology ---
Progress Note-Urology Progress Notes/Assess & Plan Progress/Assessment & Plan CARRIES LARGE PVR NEEDING IC. PLAN CYSTO TODAY AT BEDSIDE. FULLY EXPLAINED TO PATIENT Final Diagnosis RETENTION LILY MORALES MD December 27, 2020 11:34
--- NOTE | 2020-12-27 13:40 | Physical Therapy Daily Note ---
PT Daily Note-Current Subjective Pt. agrees to Rx. No c/p pain but is having some urinary retention and has had some discomfort from that Pain Location: No Pain Reported Mental Status Patient Orientation: Normal For Age Attachments: Other-See Comments (mask) Transfers SCALE: Activities may be completed with or without assistive devices. 0-Hxdrorpegl-rwnlflw completes the activity by him/herself with no assistance from a helper. 5-Set-up or Clean-up Assistance-helper sets up or cleans up; patient completes activity. [place] assists only prior to or following the activity. 4-Supervision or Touching Assistance-helper provides verbal cues and/or touching/steadying and/or contact guard assistance as patient completes activity. Assistance may be provided throughout the activity or intermittently. 3-Partial/Moderate Assistance-helper does LESS THAN HALF the effort. [place] lifts, holds or supports trunk or limbs, but provides less than half the effort. 2-Substantial/Maximal Assistance-helper does MORE THAN HALF the effort. [place] lifts or holds trunk or limbs and provides more than half the effort. 3-Iiouxzwfn-ttclpb does ALL the effort. Patient does none of the effort to complete the activity. Or, the assistance of 2 or more helpers is required for the patient to complete the activity. If activity was not attempted, code reason: 7-Patient Refused. 9-Not Applicable-not attempted and the patient did not perform the activity before the current illness, exacerbation or injury. 10-Not Attempted due to Environmental Limitations-(lack of equipment, weather restraints, etc.). 88-Not Attempted due to Medical Conditions or Safety Concerns. Roll Left & Right (QC): 6 Sit to Lying (QC): 6 Lying to Sitting/Side of Bed(Q: 6 Sit to Stand (QC): 6 Chair/Wfa-qz-Jcgmd Xfer(QC): 5 Weight Bearing Left Lower Extremity: Left Weight Bearing/Tolerated Gait Training Does the Patient Walk?: Yes Walk 10 feet (QC): 5 Walk 50 ft with 2 Turns(QC): 5 Walk 150 ft (QC): 5 Gait Persons Needed: 1 Gait Assistive Device: FWW [id number] AM, 16oft x2 pm as well as 50 ft with many turns, heavy wt bearing on FWW, flexed at trunk, pt attempting to equalized step length Exercises Supine Ex: Ankle pumps, Quad Set, Rolling, Glut sets, Heel Slides, Short Arc Quads, Scooting, Straight leg raise (assisted x10), Hip abd/add Supine Reps: 20 Seated Therapy Exercises: Ankle pumps, Sit to stand, Long arc quads, Hip flexion (right), Hip abd/add Seated Reps: 20 NuStep Minutes: 12 NuStep Workload: 4 Assessment Current Status: Good Progress AM Rx interrupted by uro procedure with Dr Thompson resumed after Lunch PT Short Term Goals Short Term Goals Time Frame: January 02, 2021 Roll Left & Right: 6 Sit to lyin Lying to sitting on side of be: 6 Sit to stand: 4 Chair/avn-ws-wjrjx transfer: 4 Walk 10 feet: 4 Walk 50 feet with two turns: 4 Walk 150 feet: 4 PT Care Home Goals Care Home Goals PT Manufacturing Maintenance Technician Goals Time Frame: Jan 16, 2021 Roll Left & Right (QC): 6 Sit to Lying (QC): 6 Lying-Sitting on Side/Bed(QC): 6 Sit to Stand (QC): 6 Chair/Thi-dn-Lgpfn Xfer(QC): 5 Toilet Transfer (QC): 5 Car Transfer (QC): 5 Does the Patient Walk: Yes Walk 10 feet (QC): 5 Walk 50ft with 2 Turns (QC): 5 Walk 150 ft (QC): 5 Walking 10ft on Uneven Surface: 5 1 Step (curb) (QC): 5 4 Steps (QC): 5 12 Steps (QC): 88 Picking up an Object (QC): 88 Wheel 50 feet with 2 turns (QC: 9 Wheel 150 feet: 9 PT Plan Treatment/Plan Treatment Plan: Continue Plan of Care Treatment Plan: Bed Mobility, Education, Functional Activity [place], Functional Strength, Group Therapy, Gait, Safety, Therapeutic Exercise, Transfers Treatment Duration: Jan 16, 2021 Frequency: At least 5 of 7 days/Wk (IRF) Estimated Hrs Per Day: 1.5 hours per day Patient and/or Family Agrees t: Yes Safety Risks/Education Patient Education: Gait Training, Transfer Techniques, Correct Positioning, Disease Process, Safety Issues Teaching Recipient: Patient Teaching Methods: Demonstration, Discussion Response to Teaching: Verbalize Understanding, Return Demonstration, Reinforcement Needed Time/GCodes Time In: 1100 (1300) Time Out: 1145 (1345) Total Billed Treatment Time: 90 Total Billed Treatment 1x2,GT25m,EX35m,FA30m SHABBIR 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
[2020-12-27] MEDS ORDERED: AMLO-250 PO ×2 (15:10)
[2020-12-27 20:52] VITALS: BP 142/77
[2020-12-27] MEDS: MELATONIN 3 MG TABLET PO PRN (20:57)
[2020-12-27] MEDS: GABAPENTIN 300 MG (NEURONTIN) CAP PO SCH (20:58)
[2020-12-27] MEDS: ZOLPIDEM 5 MG (AMBIEN) TAB PO PRN (20:58)
[2020-12-27] MEDS: amLODIPine 2.5MG (NORVASC) TAB PO SCH (20:58)
[2020-12-28] MEDS: PHENAZOPYRIDINE 100 MG (PYRIDIUM) TABLET PO SCH ×3 (06:20→18:23)
--- NOTE | 2020-12-28 06:23 | PM&R Progress Note ---
Subjective HPI/CC On Admission Date Seen by Provider: December 28, 2020 Time Seen by Provider: 10:15 Subjective/Events-last exam 12/28/20: Pt doing pretty well Discharge planned for tomorrow Straight cath one time per shift Cystoscopy yesterday showing inflamed prostate Proscar was ordered and discontinued Urecholine Bowels moved today Overall waiting for discharge tomorrow 12/27/20: No major issues Pain is doing well on Oxycodone Cystoscopy will be done by Dr. Thompson Urinary retention prompted the urology consultation and multiple meds started for bladder retention Discharge planned for Friday12/26/20: Pt reported that he was going to leave AMA if he didnt get pain medication after a week post-op that will not be initiated due to high risk for dependency Requiring in and out cath Elevated liver enzymes is not a new thing per patient so changed pain med to w/o APAP Accused me of causing his insomnia due to not giving him IV pain meds which is not indicated [address] Colmenares will see Im for his toenails Changed Hydrocodone because it has Tylenol to Oxycodone Review of Systems General: Fatigue, Malaise Genitourinary: Retention Neurological: Weakness Objective Exam Vital Signs Vital Signs Date Time Temp Pulse Resp B/P (MAP) Pulse Ox O2 Delivery O2 Flow Rate FiO2 12/28/20 09:00 Room Air 12/28/20 07:49 36.3 106 18 156/79 (104) 92 Capillary Refill : General Appearance: No Apparent Distress, WD/WN, Chronically ill HEENT: PERRL/EOMI, Normal ENT Inspection, Pharynx Normal Neck: Full Range of Motion, Normal Inspection, Non Tender, Supple, Carotid Bruit Respiratory: Chest Non Tender, Lungs Clear, Normal Breath Sounds, No Accessory Muscle Use, No Respiratory Distress Cardiovascular: Regular Rate, Rhythm, No Edema, No Gallop, No JVD, No Murmur, Normal Peripheral Pulses Gastrointestinal: Normal Bowel Sounds, No Organomegaly, No Pulsatile Mass, Non Tender, Soft Back: Normal Inspection, No CVA Tenderness, No Vertebral Tenderness Extremity: Normal Capillary Refill, Normal Inspection, Normal Range of Motion, Non Tender, No Calf Tenderness, No Pedal Edema Neurologic/Psychiatric: Alert, Oriented x3, No Motor/Sensory Deficits, Normal Mood/Affect, Abnormal Gait, Depressed Affect, Motor Weakness (left leg) Skin: Normal Color, Warm/Dry Lymphatic: No Adenopathy Results/Procedures Lab Patient resulted labs reviewed. FIM Transfers Therapy Code Descriptions/Definitions Functional [place] Measure: 0=Not Assessed/NA 4=Minimal Assistance 1=Total Assistance 5=Supervision or Setup 2=Maximal Assistance 6=Modified [place] 3=Moderate Assistance 7=Complete IndependenceSCALE: Activities may be completed with or without assistive devices. 5-Zyzfiptltw-tlrqewy completes the activity by him/herself with no assistance from a helper. 5-Set-up or Clean-up Assistance-helper sets up or cleans up; patient completes activity. [place] assists only prior to or following the activity. 4-Supervision or Touching Assistance-helper provides verbal cues and/or touching/steadying and/or contact guard assistance as patient completes a ctivity. Assistance may be provided throughout the activity or intermittently. 3-Partial/Moderate Assistance-helper does LESS THAN HALF the effort. [place] lifts, holds or supports trunk or limbs, but provides less than half the effort. 2-Substantial/Maximal Assistance-helper does MORE THAN HALF the effort. [place] lifts or holds trunk or limbs and provides more than half the effort. 7-Nvynayskr-mgwotr does ALL the effort. Patient does none of the effort to complete the activity. Or, the assistance of 2 or more helpers is required for the patient to complete the activity. If activity was not attempted, code reason: 7-Patient Refused. 9-Not Applicable-not attempted and the patient did not perform the activity before the current illness, exacerbation or injury. 10-Not Attempted due to Environmental Limitations-(lack of equipment, weather restraints, etc.). 88-Not Attempted due to Medical Conditions or Safety Concerns. Roll Left to Right (QC): 6 Sit to Lying (QC): 6 Sit to Stand (QC): 6 Chair/Jey-yq-Ydldi Xfer(QC): 5 Car Transfer (QC): 4 Gait Training Does the Patient Walk?: Yes Distance: 150'x2 Walk 10 feet (QC): 5 Walk 50 ft with 2 Turns(QC): 5 Walk 150 ft (QC): 5 Walking 10ft/uneven surface-QC: 4 Gait Persons Needed: 1 Gait Assistive Device: FWW Wheelchair Training Does the Pt Use a Wheelchair?: No Wheel 50 ft with 2 turns (QC): 9 Wheel 150 ft (QC): 9 Stair Training #of Steps: 1 1 Step (curb) (QC): 4 4 Steps (QC): 88 12 Steps (QC): 88 Balance Picking up an Object (QC): 88 ADL-Treatment Eating (QC): 6 (Per pt report) Oral Hygiene (QC): 4 (CGA standing at sink) Shower/Bathe Self (QC): 3 (Min A washing/drying LLE lower leg/foot) Upper Body Dressing (QC): 5 (set up) Lower Body Dressing (QC): 3 (Min A with threading LLE into pants, pt able to thread RLE and manage pant hike with CGA.) On/Off Footwear (QC): 3 (Pt able to don/doff gripper socks using AE. 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
[2020-12-28 07:49] VITALS: BP 156/79
[2020-12-28] MEDS: TAMSULOSIN 0.4 MG (FLOMAX) CAP PO SCH ×2 (08:03→20:22)
[2020-12-28] MEDS: DOCUSATE SODIUM 100 MG (COLACE) CAP PO SCH ×2 (08:03→20:29)
[2020-12-28] MEDS: FINASTERIDE (PROSCAR) 5 MG TAB PO SCH (08:03)
[2020-12-28] MEDS: meTOprolol TARTRATE 50 MG (LOPRESSOR) TAB PO SCH (08:03)
[2020-12-28] MEDS: FUROSEMIDE 20 MG (LASIX) TAB PO SCH (08:03)
[2020-12-28] MEDS: metFORMIN 500 MG (GLUCOPHAGE) TAB PO SCH ×2 (08:03→18:22)
[2020-12-28] MEDS: ASPIRIN 81 MG CHEW (CHILDREN'S ASA) PO SCH ×2 (08:03→20:22)
[2020-12-28] MEDS: lisINopril 20 MG (PRINIVIL) TABLET PO SCH (08:03)
--- NOTE | 2020-12-28 08:47 | Occupational Ther Daily Note ---
OT Current Status-Daily Note Subjective Pt seated in recliner, agreeable to OT tx with focus on ADLs. Mental Status/Objective Patient Orientation: Person, Place, Time, Situation ADL-Treatment Therapy Code Descriptions/Definitions Functional [place] Measure: 0=Not Assessed/NA 4=Minimal Assistance 1=Total Assistance 5=Supervision or Setup 2=Maximal Assistance 6=Modified [place] 3=Moderate Assistance 7=Complete IndependenceSCALE: Activities may be completed with or without assistive devices. 3-Cwldzhfpqp-xfmhwgu completes the activity by him/herself with no assistance from a helper. 5-Set-up or Clean-up Assistance-helper sets up or cleans up; patient completes activity. [place] assists only prior to or following the activity. 4-Supervision or Touching Assistance-helper provides verbal cues and/or touching/steadying and/or contact guard assistance as patient completes activity. Assistance may be provided throughout the activity or intermittently. 3-Partial/Moderate Assistance-helper does LESS THAN HALF the effort. [place] lifts, holds or supports trunk or limbs, but provides less than half the effort. 2-Substantial/Maximal Assistance-helper does MORE THAN HALF the effort. [place] lifts or holds trunk or limbs and provides more than half the effort. 4-Jivfmdxlt-ofkczq does ALL the effort. Patient does none of the effort to complete the activity. Or, the assistance of 2 or more helpers is required for the patient to complete the activity. If activity was not attempted, code reason: 7-Patient Refused. 9-Not Applicable-not attempted and the patient did not perform the activity before the current illness, exacerbation or injury. 10-Not Attempted due to Environmental Limitations-(lack of equipment, weather restraints, etc.). 88-Not Attempted due to Medical Conditions or Safety Concerns. Eating (QC): 6 (IND) Oral Hygiene (QC): 6 (IND standing at sink) Shower/Bathe Self (QC): 5 (set up) Upper Body Dressing (QC): 6 (IND, pt gathered shirt from closet, doffed/donned independently.) Lower Body Dressing (QC): 6 (IND, pt gathered clothes from closet, doffed/donned using AE as needed) On/Off Footwear: 4 (SBA with gripper socks, pt able to use scout professional sports to doff socks, 2 verbal cues with donning for proper technique of sock aide) Toileting Hygiene (QC): 6 (IND, pt able to manage clothes and perform hygiene) Toilet Transfer (QC): 6 (IND) Other Treatment Pt seated in recliner, used FWW to perform functional mobility around his room to gather clothes from closet and transfer into bathroom. Pt completed showering, dressing, oral care and ADLs as outlined above. Pt used FWW to go to therapy gym. OT tx with focus on increasing BUE strength and activity tolerance to maximize LOF with functional activities. Pt completed arm bike, x20 mins, moderate resistance, no rest breaks. To increase fine motor strength, pt completed therputty task, removing beads from moderate resistance therputty. Pt able to locate all beads without cues. Pt completed nut/bolt task, 2lb wrist cuffs BUE. Pt completed task, x2 sets through. Pt used FWW to return to his room, transferring to recliner. Post tx, pt seated in recliner, call light in reach and all needs met, chair alarm activated. Education OT Patient Education: Correct positioning, Energy conservation, Exercise program, Modified ADL techniques, Progress toward Goal/Update tx plan, Purpose of tx/functional activities, Rehab process, Use of adapted equipment Teaching Recipient: Patient Teaching Methods: Discussion Response to Teaching: Verbalize Understanding OT Short Term Goals Short Term Goals Time Frame: January 03, 2021 Shower/bathe self: 4 Lower body dressin OT Senior Accountant Analyst Goals Senior Accountant Analyst Goals Time Frame: Jan 19, 2021 Eating (QC): 6 (met) Oral Hygiene (QC): 6 (met) Toileting Hygiene (QC): 6 (met) Shower/Bathe Self (QC): 6 (not met, set up) Upper Body Dressing (QC): 6 (met) Lower Body Dressing (QC): 6 (met) On/Off Footwear (QC): 6 (not met, SBA) Additional Goals: 1-Demonstrate ADL Tasks, 2-Verbalize Understanding, 3- ImproveStrength/[place] 1=Demonstrate adherence to instructed precautions during ADL tasks. 2=Patient will verbalize/demonstrate understanding of assistive devices/modifications for ADL. 3=Patient will improve strength/tolerance for activity to enable patient to perform ADL's. OT Education/Plan Problem List/Assessment Assessment: Decreased Activ Tolerance, Impaired I ADL's Discharge Recommendations Plan/Recommendations: Continue POC Treatment Plan/Plan of Care Patient would benefit from OT for education, treatment and training to promote independence in ADL's, mobility, safety and/or upper extremity function for ADL's. Plan of Care: ADL Retraining, Functional Mobility, Group Exercise/Act as Ind, UE Funct Exercise/Act Treatment Duration: Jan 19, 2021 Frequency: At least 5 of 7 days/Wk (IRF) Estimated Hrs Per Day: 1.5 hours per day Rehab Potential: Good Time/GCodes Start Time: 08:00 Stop Time: 09:30 Total Time Billed (hr/min): 90 Billed Treatment Time 1, ADL 3 (45'), EX (20'), FA 2 (25') RASHMI DON OT December 28, 2020 08:47
[2020-12-28] MEDS: polyethylene glycoL POWDER 17 GM (MIRALAX) PACK PO SCH ×2 (09:38→20:29)
[2020-12-28] MEDS: SENNA W/DOCUSATE (SENOKOT S) TABLET PO SCH ×2 (09:38→20:29)
--- NOTE | 2020-12-28 11:58 | Physical Therapy Daily Note ---
PT Daily Note-Current Subjective Pt. agrees to Rx. Pt. states he feels he is making great improvement but still cannot urinate and has to be straight catheterized. Pt. denies pain. Discussed safety and prudence as pt. makes sudden briscoe movements and seems unaware of his risk for falling Pain Location: No Pain Reported Mental Status Patient Orientation: Normal For Age Attachments: Other-See Comments (mask) Transfers SCALE: Activities may be completed with or without assistive devices. 6-Tijxehxxmu-vmrjhiz completes the activity by him/herself with no assistance from a helper. 5-Set-up or Clean-up Assistance-helper sets up or cleans up; patient completes activity. [place] assists only prior to or following the activity. 4-Supervision or Touching Assistance-helper provides verbal cues and/or touching/steadying and/or contact guard assistance as patient completes activity. Assistance may be provided throughout the activity or intermittently. 3-Partial/Moderate Assistance-helper does LESS THAN HALF the effort. [place] lifts, holds or supports trunk or limbs, but provides less than half the effort. 2-Substantial/Maximal Assistance-helper does MORE THAN HALF the effort. [place] lifts or holds trunk or limbs and provides more than half the effort. 3-Erpvbqens-avjefo does ALL the effort. Patient does none of the effort to complete the activity. Or, the assistance of 2 or more helpers is required for the patient to complete the activity. If activity was not attempted, code reason: 7-Patient Refused. 9-Not Applicable-not attempted and the patient did not perform the activity before the current illness, exacerbation or injury. 10-Not Attempted due to Environmental Limitations-(lack of equipment, weather restraints, etc.). 88-Not Attempted due to Medical Conditions or Safety Concerns. Roll Left & Right (QC): 6 Sit to Lying (QC): 6 Lying to Sitting/Side of Bed(Q: 6 Sit to Stand (QC): 6 Chair/Ynh-vl-Ohoek Xfer(QC): 6 Toilet Transfer (QC): 6 Car Transfer (QC): 6 Weight Bearing Left Lower Extremity: Left Weight Bearing/Tolerated Gait Training Does the Patient Walk?: Yes Walk 10 feet (QC): 6 Walk 50 ft with 2 Turns(QC): 6 Walk 150 ft (QC): 6 Walking 10ft/uneven surface-QC: 6 Gait Persons Needed: 0 Gait Assistive Device: FWW heavy wt bearing on FWW, flexed at hips and trunk, antalgic, uneven step length but pt. is working had at equalizing and attempting to bring left hip ext r otation closer to neutral, Stair Training Stair Training: Handrails/: 2 handrails #of Steps: 4 1 Step (curb) (QC): 5 4 Steps (QC): 5 12 Steps (QC): 88 Stairs: Pattern: Step to Balance Picking up an Object (QC): 88 Exercises Supine Ex: Ankle pumps, Quad Set, Rolling, Glut sets, Heel Slides, Short Arc Quads, Scooting, Straight leg raise, Hip abd/add Supine Reps: 20 Seated Therapy Exercises: Ankle pumps, Sit to stand, Long arc quads Seated Reps: 20 Assessment Current Status: Good Progress PT Short Term Goals Short Term Goals Time Frame: January 02, 2021 Roll Left & Right: 6 Sit to lyin Lying to sitting on side of be: 6 Sit to stand: 4 Chair/ese-nc-pxwbv transfer: 4 Walk 10 feet: 4 Walk 50 feet with two turns: 4 Walk 150 feet: 4 PT Space Systems Operations Craftsman Goals Space Systems Operations Craftsman Goals PT Space Systems Operations Craftsman Goals Time Frame: Jan 16, 2021 Roll Left & Right (QC): 6 Sit to Lying (QC): 6 Lying-Sitting on Side/Bed(QC): 6 Sit to Stand (QC): 6 Chair/Xdy-qz-Drucy Xfer(QC): 5 Toilet Transfer (QC): 5 Car Transfer (QC): 5 Does the Patient Walk: Yes Walk 10 feet (QC): 5 Walk 50ft with 2 Turns (QC): 5 Walk 150 ft (QC): 5 Walking 10ft on Uneven Surface: 5 1 Step (curb) (QC): 5 4 Steps (QC): 5 12 Steps (QC): 88 Picking up an Object (QC): 88 Wheel 50 feet with 2 turns (QC: 9 Wheel 150 feet: 9 PT Plan Treatment/Plan Treatment Plan: Continue Plan of Care Treatment Plan: Bed Mobility, Education, Functional Activity Delma, Functional Strength, Group Therapy, Gait, Safety, Therapeutic Exercise, Transfers Treatment Duration: Jan 16, 2021 Frequency: At least 5 of 7 days/Wk (IRF) Estimated Hrs Per Day: 1.5 hours per day Patient and/or Family Agrees t: Yes Safety Risks/Education Patient Education: Gait Training, Transfer Techniques, Steps, Correct Positioning, Disease Process, Safety Issues Teaching Recipient: Patient Teaching Methods: Demonstration, Discussion Response to Teaching: Verbalize Understanding, Return Demonstration, Reinforcement Needed Time/GCodes Time In: 1100 Time Out: 1200 Total Billed Treatment Time: 60 Total Billed Treatment 1,GT20m,EX15m,FA25m SHABBIR LEAL DRILLING FIELD SPECIALIST December 28, 2020 11:58
--- NOTE | 2020-12-28 15:05 | Physical Therapy Daily Note ---
PT Daily Note-Current Subjective Pt. agrees to Rx, ,more discussion regarding safety and hip and back protection after DC Pain Location: No Pain Reported Mental Status Patient Orientation: Normal For Age Transfers SCALE: Activities may be completed with or without assistive devices. 1-Kalbejgxmx-wyuzxin completes the activity by him/herself with no assistance from a helper. 5-Set-up or Clean-up Assistance-helper sets up or cleans up; patient completes activity. [place] assists only prior to or following the activity. 4-Supervision or Touching Assistance-helper provides verbal cues and/or touching/steadying and/or contact guard assistance as patient completes activity. Assistance may be provided throughout the activity or intermittently. 3-Partial/Moderate Assistance-helper does LESS THAN HALF the effort. [place] lifts, holds or supports trunk or limbs, but provides less than half the effort. 2-Substantial/Maximal Assistance-helper does MORE THAN HALF the effort. [place] lifts or holds trunk or limbs and provides more than half the effort. 3-Etjzwvjyn-unebht does ALL the effort. Patient does none of the effort to complete the activity. Or, the assistance of 2 or more helpers is required for the patient to complete the activity. If activity was not attempted, code reason: 7-Patient Refused. 9-Not Applicable-not attempted and the patient did not perform the activity before the current illness, exacerbation or injury. 10-Not Attempted due to Environmental Limitations-(lack of equipment, weather restraints, etc.). 88-Not Attempted due to Medical Conditions or Safety Concerns. sit to stand all SBA to mod with reminders to use UEs to push ou from chair vs, extreme hip flexion and pulling on FWW Weight Bearing Left Lower Extremity: Left Weight Bearing/Tolerated Gait Training Gait Assistive Device: FWW 165ft, 175ft FWW with emphasis on equal step length as well as position in FWW and thinking forward to less wt bearing on FWW Exercises NuStep Minutes: 10 NuStep Workload: 4 Treatments mini leg presses on Nustep x 12 Assessment Current Status: Good Progress PT Short Term Goals Short Term Goals Time Frame: January 02, 2021 Roll Left & Right: 6 Sit to lyin Lying to sitting on side of be: 6 Sit to stand: 4 Chair/akc-iq-fjwvp transfer: 4 Walk 10 feet: 4 Walk 50 feet with two turns: 4 Walk 150 feet: 4 PT Warehouse Trainer Goals Warehouse Trainer Goals PT Retirement Goals Time Frame: Jan 16, 2021 Roll Left & Right (QC): 6 Sit to Lying (QC): 6 Lying-Sitting on Side/Bed(QC): 6 Sit to Stand (QC): 6 Chair/Ezf-ly-Pibce Xfer(QC): 5 Toilet Transfer (QC): 5 Car Transfer (QC): 5 Does the Patient Walk: Yes Walk 10 feet (QC): 5 Walk 50ft with 2 Turns (QC): 5 Walk 150 ft (QC): 5 Walking 10ft on Uneven Surface: 5 1 Step (curb) (QC): 5 4 Steps (QC): 5 12 Steps (QC): 88 Picking up an Object (QC): 88 Wheel 50 feet with 2 turns (QC: 9 Wheel 150 feet: 9 PT Plan Treatment/Plan Treatment Plan: Continue Plan of Care Treatment Plan: Bed Mobility, Education, Functional Activity Delma, Functional Strength, Group Therapy, Gait, Safety, Therapeutic Exercise, Transfers Treatment Duration: Jan 16, 2021 Frequency: At least 5 of 7 days/Wk (IRF) Estimated Hrs Per Day: 1.5 hours per day Patient and/or Family Agrees t: Yes Safety Risks/Education Patient Education: Gait Training, Transfer Techniques, Reviewed Precautions, Correct Positioning, Disease Process, Safety Issues Teaching Recipient: Patient Teaching Methods: Demonstration, Discussion Response to Teaching: Verbalize Understanding, Return Demonstration, Reinforcement Needed Time/GCodes Time In: 1425 Time Out: 1455 Total Billed Treatment Time: 30 Total Billed Treatment 1,GT15m,EX15m SHABBIR LEAL LAMINATOR PRINTED CIRCUIT BOARDS December 28, 2020 15:05
[2020-12-28] MEDS: amLODIPine 2.5MG (NORVASC) TAB PO SCH (20:22)
[2020-12-28] MEDS: ZOLPIDEM 5 MG (AMBIEN) TAB PO PRN (20:22)
[2020-12-28] MEDS: MELATONIN 3 MG TABLET PO PRN (20:22)
[2020-12-28] MEDS: GABAPENTIN 300 MG (NEURONTIN) CAP PO SCH (20:22)
[2020-12-28 20:30] VITALS: BP 144/76
[2020-12-29] MEDS ORDERED: HYDR-3820 PO ×2 (04:55)
[2020-12-29] MEDS ORDERED: TRAM50TA3 PO ×2 (04:55)
[2020-12-29] MEDS ORDERED: TMSL.4C PO ×2 (04:55)
[2020-12-29] MEDS ORDERED: FINA5TAB6 PO ×2 (04:55)
[2020-12-29] MEDS ORDERED: GABA-486 PO ×2 (04:55)
[2020-12-29] MEDS ORDERED: BACL10TA PO ×2 (04:55)
[2020-12-29] MEDS ORDERED: ASPI81TA64 PO ×2 (04:55)
--- NOTE | 2020-12-29 04:57 | D/C HH Face to Face Order ---
D/C Face to Face Orders Reconcile Patient Problems Problems Reviewed?: Yes Instructions for Patient Home Health Patient Instructions/FollowUp: Dr Jasso 1 week Physician to follow Patient: Romero Discharge Diet for Home: No Restrictions Patient Problems: s/p left hip replacement Patient Data-Allergies,Ht & Wt Patient Allergies: Coded Allergies: diphenhydramine (Verified Allergy, Mild, 07/30/20) patient states "gives him a high" Home Health Need/Face to Face Date of Face to Face: December 29, 2020 Clinical Findings: Generalized weakness and fatigue, Instability, Muscle weakness, Pain with ambulation, Unsteady gait I have seen Pt khtw-cq-svlb: Yes Discharged To: Home Diagnosis/Conditions: hip replacement urinary retention Patient is Homebound due to: Omar fall risk due to instabilty, Muscle weakness, Pain w/ambulation Homebound Status Due to the above stated illness, injury or surgical procedure (medical condition or diagnosis) and associated clinical findings, the patient is homebound because of his/her inability to leave home except with aid of a supportive device and/or person AND leaving the home requires a considerable and taxing effort or is medically contraindicated. Pt req the following assistanc: Walker Home Health Nursing Orders Home Health Services Order: Nursing Services, Body Joiner-Evaluate & Treat, Physical Therapy-Evaluate & Treat Certify Stmt I certify that this patient is under my care and that I, a nurse practitioner or a physician; a administrative sales assistant working with me, had a face to face encounter that - meets the physician face to face encounter requirements with this patient as dated. HAIM BERNAL DO December 29, 2020 04:57
--- NOTE | 2020-12-29 04:57 | Discharge Summary ---
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 Plan: Urology consult Bladder meds Monitor pain IRF protocol December AMA 12/26/20: Monitor closely Pain control Limit LFT's 12/27/20: CYsto per Dr Thompson Bladder meds per Dr Thompson DC Friday12/28/20: DC Friday In/Out caths at DC (1) Status post left hip replacement (2) Hypertension (3) Hyperlipemia (4) Edema (5) Diabetes Discharge Summary Discharge Physical Examination Allergies: Coded Allergies: diphenhydramine (Verified Allergy, Mild, 07/30/20) patient states "gives him a high" Vitals & I&Os Vital Signs Date Time Temp Pulse Resp B/P (MAP) Pulse Ox O2 Delivery O2 Flow Rate FiO2 12/29/20 14:20 36.8 95 18 140/83 95 Room Air General Appearance: Alert, Oriented X3, Cooperative Respiratory: Clear to Auscultation Cardiovascular: Regular Rate Neuro: Normal Gait, Normal Speech, Strength at 5/ X4 Ext Psych/Mental Status: Mental Status NL Hospital Course Was the Problem List Reviewed?: Yes Hospital Course: Pt had a short hospital course after he was admitted for a short time after left hip replacement. Pt overall did very well, participated in all therapy, was able to have urology consultation for urinary retention and that resolved with in and out catheter. Cystoscope showed inflamed prostate and he will go home with supplies for in and out cath and will be monitored closely in the meantime. Pt declined any in home PT. Labs (last 24 hrs) Laboratory Tests 12/25/20 17:21: Glucometer 171H 12/26/20 05:40: White Blood Count 8.2, Red Blood Count 4.45, Hemoglobin 12.8L, Hematocrit 39L, Mean Corpuscular Volume 87, Mean Corpuscular Hemoglobin 29, Mean Corpuscular Hemoglobin Concent 33, Red Cell Distribution Width 15.8H, Platelet Count 241, Mean Platelet Volume 9.8, Immature Granulocyte % (Auto) 1, Neutrophils (%) (Auto) 73, Lymphocytes (%) (Auto) 11L, Monocytes (%) (Auto) 8, Eosinophils (%) (Auto) 7, Basophils (%) (Auto) 1, Neutrophils # (Auto) 6.0, Lymphocytes # (Auto) 0.9L, Monocytes # (Auto) 0.6, Eosinophils # (Auto) 0.5H, Basophils # (Auto) 0.1, Immature Granulocyte # (Auto) 0.1, Sodium Level 136, Potassium Level 3.9, Chloride Level 101, Carbon Dioxide Level 27, Anion Gap 8, Blood Urea Nitrogen 15, Creatinine 0.79, Estimat Glomerular Filtration Rate > 60, BUN/Creatinine Ratio 19, Glucose Level 133H, Calcium Level 9.4, Corrected Calcium 10.0, Total Bilirubin 0.8, Aspartate Amino Transf (AST/SGOT) 72H, Alanine Aminotransferase (ALT/SGPT) 56H, Alkaline Phosphatase 176H, Total Protein 7.4, Albumin 3.3 Pending Labs Laboratory Tests 12/25/20 17:21: Glucometer 171 12/26/20 05:40: White Blood Count 8.2, Red Blood Count 4.45, Hemoglobin 12.8, Hematocrit 39, Mean Corpuscular Volume 87, Mean Corpuscular Hemoglobin 29, Mean Corpuscular Hemoglobin Concent 33, Red Cell Distribution Width 15.8, Platelet Count 241, Mean Platelet Volume 9.8, Immature Granulocyte % (Auto) 1, Neutrophils (%) (Auto) 73, Lymphocytes (%) (Auto) 11, Monocytes (%) (Auto) 8, Eosinophils (%) (Auto) 7, Basophils (%) (Auto) 1, Neutrophils # (Auto) 6.0, Lymphocytes # (Auto) 0.9, Monocytes # (Auto) 0.6, Eosinophils # (Auto) 0.5, Basophils # (Auto) 0.1, Immature Granulocyte # (Auto) 0.1, Sodium Level 136, Potassium Level 3.9, Chloride Level 101, Carbon Dioxide Level 27, Anion Gap 8, Blood Urea Nitrogen 15, Creatinine 0.79, Estimat Glomerular Filtration Rate > 60, BUN/Creatinine R atio 19, Glucose Level 133, Calcium Level 9.4, Corrected Calcium 10.0, Total Bilirubin 0.8, Aspartate Amino Transf (AST/SGOT) 72, Alanine Aminotransferase (ALT/SGPT) 56, Alkaline Phosphatase 176, Total Protein 7.4, Albumin 3.3 Discharge Home Medications: Active Scripts Active Gabapentin 100 Mg Capsule 300 Mg PO HS Finasteride 5 Mg Tablet 5 Mg PO DAILY Hydrocodone-Acetamin 10-325 mg (Hydrocodone/Acetaminophen) 1 Each Tablet 1 Each PO Q4H Children's Aspirin (Aspirin) 81 Mg Tab.chew 81 Mg PO BID Baclofen 10 Mg Tablet 10 Mg PO Q6HR PRN Flomax (Tamsulosin HCl) 0.4 Mg Cap 0.4 Mg PO BID Tramadol HCl 50 Mg Tablet 50-100 Mg PO QID PRN Reported Amlodipine Besylate 5 Mg Tablet 5 Mg PO HS Furosemide 20 Mg Tablet 20 Mg PO DAILY Lisinopril 20 Mg Tablet 20 Mg PO DAILY Metformin HCl 500 Mg Tablet 500 Mg PO BID Lopressor (Metoprolol Tartrate) 50 Mg Tablet 50 Mg PO DAILY Ambien (Zolpidem Tartrate) 10 Mg Tablet 10 Mg PO HS PRN Instructions to patient/family Please see electronic discharge instructions given to patient. Diagnosis/Problems Diagnosis/Problems (1) Status post left hip replacement (2) Hypertension (3) Hyperlipemia (4) Edema (5) Diabetes HAIM BERNAL DO December 29, 2020 04:57
[2020-12-29 08:33] VITALS: BP 140/83
[2020-12-29] MEDS: meTOprolol TARTRATE 50 MG (LOPRESSOR) TAB PO SCH (08:39)
[2020-12-29] MEDS: TAMSULOSIN 0.4 MG (FLOMAX) CAP PO SCH (08:39)
[2020-12-29] MEDS: FUROSEMIDE 20 MG (LASIX) TAB PO SCH (08:39)
[2020-12-29] MEDS: ASPIRIN 81 MG CHEW (CHILDREN'S ASA) PO SCH (08:39)
[2020-12-29] MEDS: PHENAZOPYRIDINE 100 MG (PYRIDIUM) TABLET PO SCH (08:39)
[2020-12-29] MEDS: FINASTERIDE (PROSCAR) 5 MG TAB PO SCH (08:39)
[2020-12-29] MEDS: metFORMIN 500 MG (GLUCOPHAGE) TAB PO SCH (08:39)
[2020-12-29] MEDS: lisINopril 20 MG (PRINIVIL) TABLET PO SCH (08:39)
[2020-12-29] MEDS: SENNA W/DOCUSATE (SENOKOT S) TABLET PO SCH (09:00)
[2020-12-29] MEDS: DOCUSATE SODIUM 100 MG (COLACE) CAP PO SCH (09:00)
[2020-12-29] MEDS: polyethylene glycoL POWDER 17 GM (MIRALAX) PACK PO SCH (09:00)
--- NOTE | 2020-12-29 10:00 | Progress Note - Urology ---
Progress Note-Urology Progress Notes/Assess & Plan Progress/Assessment & Plan HOME TODAY. INSTRUCTIONS GIVEN Final Diagnosis RETENTION LILY MORALES MD December 29, 2020 10:00
--- NOTE | 2020-12-29 13:49 | Therapy Team Discharge Summary ---
Therapy Discharge Summary Discharge Recommendations Date of Discharge Physical Therapy Patient came to rehab following a SAMREEN. Upon evaluation patient performed bed mobility and supine <-> sit with independence, sit <-> stand and transfers with CGA, car transfer CGA, ambulated 150' with a rolling walker with CGA (including 50' with at least 2 turns of 90 degrees and 10' over an uneven surface), and went up and down 1 step using a rolling walker with CGA. Patient has been performing bed mobility and transfer training, balance and endurance training, functional strengthening, gait training, and education. Patient has made good progress and has met all of his terminal operations supervisor goals. Now, patient performs bed mobility and transfers with independence, independent with car transfer, ambulates 150' with a rolling walker with independence (including 50' with at least 2 turns of 90 degrees and 10' over an uneven surface), and can go up and down 4 steps using 2 handrails with setup. Patient was discharged from this facility today and will be discharged from PT at this time. Occupational Therapy Decreased Activ Tolerance, Impaired I ADL's PT Mental Health Coordinator Goals Care Home Goals PT Care Home Goals Time Frame: Jan 16, 2021 Roll Left to Right (QC): 6 Sit to Lying (QC): 6 Lying-Sitting on Side/Bed(QC): 6 Sit to Stand (QC): 6 Chair/Jor-qd-Bkuxg Xfer(QC): 5 Car Transfer (QC): 5 Does the Patient Walk: Yes Walk 10 feet (QC): 5 Walk 10ft-Uneven Surface(QC): 5 Walk 50ft with 2 Turns (QC): 5 Walk 150 ft (QC): 5 Wheel 50 feet with 2 turns (QC: 9 1 Step (curb) (QC): 5 4 Steps (QC): 5 12 Steps (QC): 88 Picking up an Object (QC): 88 OT Care Home Goals Care Home Goals Time Frame: Jan 19, 2021 Eating (QC): 6 (met) Oral Hygiene (QC): 6 (met) Shower/Bathe Self (QC): 6 (not met, set up) Upper Body Dressing (QC): 6 (met) Lower Body Dressing (QC): 6 (met) On/Off Footwear (QC): 6 (not met, SBA) Toileting Hygiene (QC): 6 (met) Toilet/Commode Transfer (QC): 5 Additional Goals: 1-Demonstrate ADL Tasks, 2-Verbalize Understanding, 3- ImproveStrength/Delma 1=Demonstrate adherence to instructed precautions during ADL tasks. 2=Patient will verbalize/demonstrate understanding of assistive devices/modifications for ADL. 3=Patient will improve strength/tolerance for activity to enable patient to perform ADL's. BALWINDER EDDY PT December 29, 2020 13:49
[2020-12-29 14:20] VITALS: BP 140/83
--- NOTE | 2020-12-29 14:56 | Therapy Team Discharge Summary ---
Therapy Discharge Summary Discharge Recommendations Date of Discharge Occupational Therapy Pt admitted to ARU s/p L SAMREEN. At PLOF pt was independent with ADLs, using AE as needed. Upon initial evaluation, pt was independent with eating, required CGA oral care, min A showering, set up upper body dressing, min A lower body dressing, min A footwear and CGA toileting. OT tx focused on increasing BUE strength and activity tolerance, increasing safety and independence with ADLs and education on AE. At discharge, pt was independent with eating, oral care, upper body dressing, lower body dressing, and toileting, required set up assist shower and SBA footwear. Pt made good progress towards goals, meeting all LTGs except showering and footwear. OT recommends sock aide and ordnance engineering technician. Pt discharged from facility, d/c from OT. Decreased Activ Tolerance, Impaired I ADL's PT Nursing Home Goals Nursing Home Goals PT Viscosity Tester Goals Time Frame: Jan 16, 2021 Roll Left to Right (QC): 6 Sit to Lying (QC): 6 Lying-Sitting on Side/Bed(QC): 6 Sit to Stand (QC): 6 Chair/Fle-bd-Dioql Xfer(QC): 5 Car Transfer (QC): 5 Does the Patient Walk: Yes Walk 10 feet (QC): 5 Walk 10ft-Uneven Surface(QC): 5 Walk 50ft with 2 Turns (QC): 5 Walk 150 ft (QC): 5 Wheel 50 feet with 2 turns (QC: 9 1 Step (curb) (QC): 5 4 Steps (QC): 5 12 Steps (QC): 88 Picking up an Object (QC): 88 OT Nursing Home Goals Viscosity Tester Goals Time Frame: Jan 19, 2021 Eating (QC): 6 (met) Oral Hygiene (QC): 6 (met) Shower/Bathe Self (QC): 6 (not met, set up) Upper Body Dressing (QC): 6 (met) Lower Body Dressing (QC): 6 (met) On/Off Footwear (QC): 6 (not met, SBA) Toileting Hygiene (QC): 6 (met) Toilet/Commode Transfer (QC): 5 Additional Goals: 1-Demonstrate ADL Tasks, 2-Verbalize Understanding, 3- ImproveStrength/Delma 1=Demonstrate adherence to instructed precautions during ADL tasks. 2=Patient will verbalize/demonstrate understanding of assistive devices/modifications for ADL. 3=Patient will improve strength/tolerance for activity to enable patient to perform ADL's. RASHMI DON OT December 29, 2020 14:56
--- NOTE | 2021-01-01 14:32 | Physician Query Clarification ---
ROSA NORMAN 01/01/21 1432: [id number] Principal Diagnosis Principal Diagnosis Document Diagnosis QUESTION: Please specify the condition(s) that was chiefly responsible for oc casioning the admission to the hospital after study/evaluation based on your medical judgment. Dr. Osman Clinical Indicators/Findings On Admit/Eval/Treatment: S/P Lt THR - Please provide the medical condition responsible for the Lt THR. This will be the etiologic diagnosis for the IRF stay. Source Document: IRF assessment Java Security Engineer Note Java Security Engineer Note Please remember a lack of response to the above will prompt a phone page by CDI/coding staff. In responding to this query, please exercise your independent professional judgment. The purpose of this communication is to more accurately reflect the complexity of your patients condition. The fact that a question is asked does not imply that any particular answer is desired or expected. Thank you for your timely response to this clarification. Requestors name: Rosa THIS PHYSICIAN QUERY FORM IS A PERMANENT PART OF THE MEDICAL RECORD HAIM OSMAN DO 01/01/21 2119: [id number] Principal Diagnosis Question Chief Reason for Admission Aft: Severe osteoarthritis of the left hip requiring replacement ROSA NORMAN January 01, 2021 14:32 HAIM OSMAN DO January 01, 2021 21:19
== END 2020-12-29 14:25 | disposition home health service (06) | DRG 561 ==
PROVIDERS: ADMIT Internal Medicine; ATTEND Internal Medicine
DX: Z47.1 Aftercare following joint replacement surgery (principal); N40.1 Benign prostatic hyperplasia with lower urinary tract symptoms; R33.8 Other retention of urine; N31.9 Neuromuscular dysfunction of bladder, unspecified; E11.40 Type 2 diabetes mellitus with diabetic neuropathy, unspecified; Z79.84 Long term (current) use of oral hypoglycemic drugs; I10 Essential (primary) hypertension; E78.00 Pure hypercholesterolemia, unspecified; E78.5 Hyperlipidemia, unspecified; M19.91 Primary osteoarthritis, unspecified site; F32.9 Major depressive disorder, single episode, unspecified; B35.1 Tinea unguium; Z98.1 Arthrodesis status; Z85.6 Personal history of leukemia; Z88.8 Allergy status to other drugs, medicaments and biological substances; Z79.82 Long term (current) use of aspirin; Z83.3 Family history of diabetes mellitus; Z82.49 Family history of ischemic heart disease and other diseases of the circulatory system
CPT/HCPCS: 36415; 80053; 82947; 85025

== ENCOUNTER → 2020-12-27 | Outpatient (CLI) | payer MEDICARE ==
[~2020-12-27] MED LIST changes: +AMLO2.5T4 PO; +ASPI-999 PO; +ASPI81TA64 PO; +FINA5TAB6 PO; +FINASTERIDE (PROSCAR) 5 MG TAB PO SCH; +GABA-486 PO; +GABA300C PO; +HYDR-3817 PO; +HYDR-3820 PO; +LIDOCAINE UROJET 2% GEL 10 ML PKG ONE; +METO-451 PO; +TMSL.4C PO; +TRAM50TA3 PO; +ZOLP10TA PO
--- NOTE | 2020-12-27 11:34 | Progress Note-Pre Operative ---
Pre-Operative Progress Note H&P Reviewed The H&P was reviewed, patient examined and no changes noted. Date Seen by Provider: December 27, 2020 Time Seen by Provider: 11:34 Date H&P Reviewed: December 27, 2020 Time H&P Reviewed: 11:34 Pre-Operative Diagnosis: URINE RETENTION LILY MORALES MD December 27, 2020 11:34
--- NOTE | 2020-12-27 11:35 | Progress Note-Post Operative ---
Post-Operative Progess Note Surgeon (s)/Finish Photographer (s) Surgeon LILY MORALES MD Finish Photographer: NONE Pre-Operative Diagnosis URINE RETENTION AND BPH Post-Operative Diagnosis SAME Procedure & Operative Findings Date of Procedure 12/27/20 Procedure Performed/Findings CYSTOSCOPY Anesthesia Type LOCAL Estimated Blood Loss Estimated blood loss (mL): NONE Specimens/Packing Specimens Removed NONE Packing: NONE LILY MORALES MD December 27, 2020 11:35
--- NOTE | 2020-12-27 11:52 | Physical Therapy Daily Note ---
PT Daily Note-Current Subjective Pt. agrees to Rx, states he hopes to be out of here in a few days, pt.states his only real problem is he cannot urinate and empty his bladder.No c/o pain Pain Location: No Pain Reported Mental Status Patient Orientation: Normal For Age Attachments: Other-See Comments (mask) Transfers SCALE: Activities may be completed with or without assistive devices. 5-Jdfyojixod-huehfuw completes the activity by him/herself with no assistance from a helper. 5-Set-up or Clean-up Assistance-helper sets up or cleans up; patient completes activity. [place] assists only prior to or following the activity. 4-Supervision or Touching Assistance-helper provides verbal cues and/or touching/steadying and/or contact guard assistance as patient completes activity. Assistance may be provided throughout the activity or intermittently. 3-Partial/Moderate Assistance-helper does LESS THAN HALF the effort. [place] lifts, holds or supports trunk or limbs, but provides less than half the effort. 2-Substantial/Maximal Assistance-helper does MORE THAN HALF the effort. [place] lifts or holds trunk or limbs and provides more than half the effort. 5-Attoklkgp-obnsvu does ALL the effort. Patient does none of the effort to complete the activity. Or, the assistance of 2 or more helpers is required for the patient to complete the activity. If activity was not attempted, code reason: 7-Patient Refused. 9-Not Applicable-not attempted and the patient did not perform the activity before the current illness, exacerbation or injury. 10-Not Attempted due to Environmental Limitations-(lack of equipment, weather restraints, etc.). 88-Not Attempted due to Medical Conditions or Safety Concerns. Roll Left & Right (QC): 6 Sit to Lying (QC): 6 Lying to Sitting/Side of Bed(Q: 6 Sit to Stand (QC): 6 Chair/Bvp-pz-Guvmy Xfer(QC): 6 Gait Training Does the Patient Walk?: Yes Walk 10 feet (QC): 5 Walk 50 ft with 2 Turns(QC): 5 Walk 150 ft (QC): 5 Gait Persons Needed: 1 Gait Assistive Device: FWW heavy wt bearing on FWW,even step length, flexed at trunk/hips Exercises Supine Ex: Ankle pumps, Quad Set, Rolling, Glut sets, Heel Slides, Short Arc Quads, Scooting (up in bed), Straight leg raise, Hip abd/add Supine Reps: 15 Seated Therapy Exercises: Ankle pumps, Sit to stand, Long arc quads Seated Reps: 15 Assessment Current Status: Good Progress pt. 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
--- NOTE | 2020-12-27 16:17 | OPERATIVE REPORT ---
DATE OF SERVICE: 12/27/2020 PREOPERATIVE DIAGNOSIS: Urinary retention. POSTOPERATIVE DIAGNOSES: Urinary retention. BPH. OPERATION PERFORMED: Cystoscopy. SURGEON: Rashaun Morales MD ANESTHESIA: Local. COMPLICATIONS: None. DESCRIPTION OF PROCEDURE: With the patient supine in his bed, genitalia were prepped and draped in the usual sterile fashion. The urethra was infiltrated with lidocaine jelly. Penile clamp was applied. This was then removed and a flexible cystoscope was introduced under vision. Anterior urethra was normal. The prostate showed enlargement of the lateral lobe meeting in the midline causing complete bladder neck obstruction. Bladder was entered, revealed trabeculation and mild cystitis. No foreign body, bladder tumor or stone visualized. The cystoscopy was confirmed in an antegrade fashion and the cystoscope was removed. The patient tolerated the procedure and anesthesia well, remained in his bed in stable condition. External genitalia, adequate male configuration. His rectal exam, flat, benign, nontender, elastic prostate. PLAN: We will hold the Urecholine since the prostate is enlarged. We will start him on Proscar. Continue the Flomax and manage accordingly. The plan was fully explained to the patient. Job ID: [id number] DocumentID: [id number] Dictated Date: 12/27/2020 11:56:40 Distillery Supervisor Date: 12/27/2020 16:17:13 Dictated By: RASHAUN MORALES MD
--- NOTE | 2020-12-28 11:34 | Progress Note - Urology ---
Progress Note-Urology Progress Notes/Assess & Plan Progress/Assessment & Plan STILL PROBLEM EMPTYING. 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 F/U IN 10 DAYS Final Diagnosis RETENTION LILY MORALES MD December 28, 2020 11:34
== END ==
LOC: UNDOADMIN 09:20 → SURG 09:20 → SDC 11:40 → EDSTATUS 13:00
PROVIDERS: ATTEND Urology
DX: R33.9 Retention of urine, unspecified (principal)